=== PATIENT | female | born 1950 | race Caucasian/White ===

== ENCOUNTER → 2020-02-27 | Outpatient (CLI) | payer BC ==
--- NOTE | 2020-02-27 11:25 | US ---
EXAMINATION TYPE: US duplex aorta DATE OF EXAM: 02/27/2020 COMPARISON: NONE CLINICAL HISTORY: Z13.6 Screen for cardiovascular disorders. EXAM MEASUREMENTS: Abdominal Aorta: Proximal: 2.3 x 2.4 x 2.1 cm Mid: 2.3 x 2.2 x 2.3 cm Distal: 2.0 x 2.4 x 2.1 cm Bifurcation: Rt: 1.4 x 1.2 x 1.5 cm Lt: 1.3 x 1.1 x 1.6 cm Grayscale, color Doppler and spectral Doppler imaging performed. Atherosclerotic changes. Iliac arteries appear ectatic. IMPRESSION: No abdominal aortic aneurysm
== END | disposition home or self-care (01) ==
LOC: RADUSWWP 07:14
PROVIDERS: ATTEND Family Medicine
DX: Z13.6 Encounter for screening for cardiovascular disorders (principal)
CPT/HCPCS: 93979

== ENCOUNTER → 2020-03-24 | Day surgery (SDC) | payer MEDICARE ==
[~2020-03-24] MED LIST: PREMYELOGRAM MEDICATION REVIEW 1 EACH MISC PO ONE; diazePAM 5 MG TAB PO STA
[2020-03-24 09:12] VITALS: RESP 16; TEMP 98.1
--- NOTE | 2020-03-24 09:22 | XR ---
EXAMINATION TYPE: XR scoliosis survey DATE OF EXAM: 03/24/2020 COMPARISON: NONE HISTORY: Back pain. TECHNIQUE: 2 weightbearing views of the thoracolumbar spine. FINDINGS: S-shaped scoliotic curvature scoliosis is present. There is dextroconvex curvature centered mid thoracic spine with reactive levoconvex curvature centered near the thoracolumbar junction and s ubsequent most prominent dextroconvex curvature or scoliosis centered at L3 level. Alignment is strai ghtened on the lateral images. No hemivertebra. Calculated soares angle is 25 degrees using the superio r L2 and superior L4 endplates. Transitional type L6 vertebra is suspected. Numerous surgical clips o verlie the thoracic inlet. IMPRESSION: As above.
--- NOTE | 2020-03-24 11:52 | FL ---
PROCEDURE: Fluoroscopic Lumbar myelogram DATE: 03/24/2020 CLINICAL HISTORY: 69-year-old female M5 4.5, low back pain COMPLICATIONS: None COMPARISON: Correlation to patient's outside MRI performed on 09/19/2019. Fluoroscopy time: 1 minute 18 seconds Total images: 8 SEDATION: Valium was administered by nursing personnel. The patient and the patient's vital signs were monitor ed by qualified independent radiology personnel. TECHNIQUE: The procedure and potential risks were explained to patient and an informed consent was obtained with teach back. Site and side was verified. A time out was performed. The patient was placed prone on the fluoroscopy table and the L4-L5 level was localized and the skin was marked and was prepped and draped in the usual sterile fashion. Lidocaine was used for local anesthesia. Utilizing fluoroscopic guidance a 22-gauge spinal needle was placed through the skin and into the subarachnoid space. After visualization of clear CSF, 10 mL Isovue-M 300 was administered into the thecal sac. The table was manipulated to promote contrast do extend up into the thoracic spine. The patient tolerated the procedure well and will be sent to CT in 30 minutes. The estimated blood loss was minimal. The patient's condition was unchanged following the procedure. IMPRESSION: Successful lumbar myelogram injection for CT.
--- NOTE | 2020-03-24 12:53 | CT ---
EXAMINATION TYPE: CT thoracic and lumbar myelogram DATE OF EXAM: 03/24/2020 COMPARISON: Lumbar MRI 09/19/2019 HISTORY: 69-year-old female M54.5, Low back pain TECHNIQUE: Contiguous axial scanning of the thoracic and lumbar spine after intrathecal administratio n of contrast material. Please refer to myelogram injection report of the same day for further detail s. Coronal and sagittal reconstructions performed. CT DLP: 110.4 mGycm Automated exposure control for dose reduction was used. FINDINGS: THORACIC SPINE: Dextroconvex curvature of the thoracic spine. There is moderate degenerative disc disease lower thoracic spine with disc space narrowing, some vacu um phenomenon, and diffuse disc bulging. Facet arthropathy mid and lower thoracic spine. There is degenerative grade 1 retrolisthesis from T7 through T11 levels. Prominent posterior disc bul ges at these levels. Additional degenerative grade 1 anterolisthesis at C7-T1. Overall mild narrowing of the spinal canal at T9-T10 and T10-T11. No high-grade canal compromise or f rank cord compression within the thoracic spine. On the right, there are variable mild neural foraminal stenoses secondary to facet arthropathy. More moderate to severe at T10-T11 and moderate at T5-T6. On the left, variable mild neural foraminal stenoses, more moderate to severe at T10-T11 and T9-T10. Moderate at T8-T9 and T1-T2. Vertebral body heights are preserved. LUMBAR SPINE: Undulating curvature of the lumbar spine with a dextroconvex component centered at the mid lumbar spi ne. There is 8 mm of right lateral subluxation of L3 on L4 and 1 cm of right lateral subluxation of L 4 on L5. Degenerated scoliosis with moderate to advanced multilevel degenerative disc disease. There is a comp onent of underlying congenital spinal canal stenosis of the upper to mid lumbar spine with AP canal d imension of 1.2 cm. Hypertrophic facet arthropathy present at multiple levels. Degenerative grade 1 anterolisthesis L4-L5. Multilevel prominent disc herniations are present. At T12-L1, disc herniation with ligamentum flavum thickening results in moderate narrowing of the spi nal canal. Near abutment of both the dorsal and ventral portions of the distal cord. At L1-L2, posterior disc bulge with ligamentum flavum thickening. Changes result in mild to moderate narrowing of the spinal canal. At L2-L3, diffuse disc bulge with ligamentum flavum thickening. Left paracentral disc protrusion. Mod erate spinal canal stenosis. Left lateral recess stenosis. At L3-L4, disc osteophyte complex. Moderate to severe spinal canal stenosis with very little intrathe wilder contrast at this level. At L4-L5, bulging disc is present with circumferential attenuation of the thecal sac but no significa nt spinal canal stenosis. At L5-S1, mild disc bulge without significant canal or foraminal stenosis. On the right, there is mild multilevel neural foraminal stenosis, moderate at T12-L1, L1-L2, and L5-S 1. An additional, large right lateral disc osteophyte complex may impinge the extraforaminal right L5 nerve root. On the left, mild multilevel neuroforaminal narrowing, more moderate at L2-L3, moderate to severe at L3-L4. Vertebral body heights are preserved. Conus medullaris is normally located at the L1-L2 level. INCIDENTAL: 2.2 cm low-density nodule left adrenal gland with attenuation of 9 Hounsfield units suggesting a lipi d rich adrenal adenoma. 4 mm subpleural pulmonary nodule posteromedial left base, axial image 87 can be reassessed in 12 sabine hs. Some surgical clips in the thyroid bed. IMPRESSION: THORACIC SPINE: 1. DEXTROCONVEX SCOLIOSIS OF THE THORACIC SPINE. MODERATE DEGENERATIVE DISC DISEASE MID AND LOWER THO RACIC SPINE AND SCATTERED FACET ARTHROPATHY. 2. DEGENERATIVE GRADE 1 RETROLISTHESES FROM T7 THROUGH T11 LEVELS. MILD OVERALL SPINAL CANAL STENOSES AT T9-T10 AND T10-T11. NO HIGH-GRADE CANAL COMPROMISE OR MAT CORD COMPRESSION. 3. VARIABLE MILD NEUROFORAMINAL STENOSES OUTLINED ABOVE, MORE MODERATE TO SEVERE ON BOTH SIDES AT T10-T11 AND ON THE LEFT AT T9-T10. LUMBAR SPINE: 4. DEGENERATED DEXTROCONVEX SCOLIOSIS. 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 5. MODERATE SPINAL CANAL STENOSES AT T12-L1 AND L2-L3. MILD TO MODERATE AT L1-L2 AND MODERATE TO SREE RE AT L3-L4. THERE IS SECONDARY REDUNDANCY OF THE CAUDA EQUINA NERVE ROOTS DUE TO THE MULTILEVEL NARR OWING. 6. ADDITIONAL LEFT LATERAL RECESS STENOSIS AT L2-L3. ALSO, THERE IS A LARGE RIGHT LATERAL DISC OSTEOP HYTE COMPLEX AT L5-S1 THAT MAY IMPINGE THE EXTRAFORAMINAL RIGHT L5 NERVE ROOT. 7. VARIABLE MILD TO MODERATE NEURAL FORAMINAL STENOSES OUTLINED ABOVE, MORE MODERATE TO SEVERE ON THE LEFT AT L3-L4. INCIDENTAL: 8. 4 MM LEFT BASILAR PULMONARY NODULE. 6 MONTH FOLLOW-UP CT CHEST TO REASSESS AND SERVING THE REMAIND ER OF THE LUNGS. 9. INCIDENTAL 2.2 CM LIPID RICH LEFT ADRENAL ADENOMA.
[2020-03-24 13:59] VITALS: BP 135/74; PULSE 93
== END ==
LOC: RADPROMAIN 07:45
PROVIDERS: ATTEND Orthopaedic Surgery
DX: M51.36 Other intervertebral disc degeneration, lumbar region (principal); M51.34 Other intervertebral disc degeneration, thoracic region; M48.061 Spinal stenosis, lumbar region without neurogenic claudication; M48.04 Spinal stenosis, thoracic region; M41.9 Scoliosis, unspecified; M25.78 Osteophyte, vertebrae
CPT/HCPCS: 62305; 72082; 72129; 72132; Q9967

== ENCOUNTER → 2020-04-14 | Outpatient (CLI) | payer MEDICARE ==
--- NOTE | 2020-04-14 11:44 | BD ---
EXAMINATION TYPE: Axial Bone Density DATE OF EXAM: 04/14/2020 COMPARISON: NONE CLINICAL HISTORY: 69-year-old female postmenopausal screening Height: 5 FT 6 IN Weight: 187 FRAX RISK QUESTIONS: Alcohol (3 or more units per day): NO Family History (Parent hip fracture): YES Glucocorticoids (More than 3mos): NO (Ex: prednisone, prednisolone, methylprednisolone, dexamethasone, and hydrocortisone). History of Fracture in Adulthood: NO Secondary Osteoporosis: 1. Type 1 Diabetes: NO 2. Hyperthyroidism: REMOVED FOR NODULES 3. Menopause before 45: NO 4. Malnutrition: NO 5. Chronic liver disease: NO Rheumatoid Arthritis: NO Current Tobacco Use: NO RISK FACTORS HISTORY OF: Surgery to Spine/Hip(right/left)/Wrist (right/left): ALKA HIP REPLACEMENTS When: APPROX 10 YEARS LEFT , APPROX 4 YEARS FOR RIGHT Family History of Osteoporosis: NO Active: NO Diet low in dairy products/other sources of calcium: NO Postmenopausal woman: PART HYST IN 30'S SYMPTOMS 54-55 Take estrogen and/or progesterone medications: NONE Lost more than 2 inches in height since high school: MEDICATIONS: Thyroid Medications: YES Which medication: SYNTHROID How Long: APPROX 10-20 YEARS Additional Medications: SYNTHROID, CYMBALTA, MUSCLE RELAXER, MEDS FOR CYSTITIS Additional History: EXAM MEASUREMENTS: Bone mineral densitometry was performed using the [employer] System. Bone mineral density as measured about the Lumbar spine is: ----- L1-L4(G/cm2): 1.687 T Score Values are as follows: ----- L2: 2.5 ----- L3: 5.1 ----- L4: 5.7 ----- L1-L4: 4.2 PREV DONE ELSEWHERE Bone mineral density about the L Wrist (g/cm2): 0.731 T Score values are as follows: -----Dist. R+U: -0.3 -----Prox. R+U: 1.0 -----Radius total: 2.5 PREV DONE ELSEWHERE IMPRESSION: Normal (Values between +1 and -1 indicate normal bone mass). Consider repeating this study in 5 year s or sooner if there is some new clinical indication. NOTE: T-SCORE=SD OF THE YOUNG ADULT MEAN.
== END | disposition home or self-care (01) ==
LOC: RADBDWWP 09:10
PROVIDERS: ATTEND Orthopaedic Surgery
DX: M85.88 Other specified disorders of bone density and structure, other site (principal); N95.1 Menopausal and female climacteric states
CPT/HCPCS: 77080

== ENCOUNTER 2020-08-29 08:37 | Day surgery (SDC) | payer MEDICARE ==
[2020-08-27 16:12] VITALS: BMI 28.1
[2020-08-29] MEDS ORDERED: LACTATED RINGERS 1,000 ML IV ONE (09:01)
[2020-08-29 09:02] VITALS: TEMP 97.2
[2020-08-29] MEDS ORDERED: fentaNYL (PF) 50 MCG/ML 2 ML AMP ONE (10:01)
[2020-08-29] MEDS ORDERED: MIDAZOLAM 2 MG/2 ML VIAL ONE (10:01)
[2020-08-29] MEDS ORDERED: IOPAMIDOL M200 10 ML VIAL ONE (10:01)
[2020-08-29] MEDS ORDERED: TRIAMCINOLONE ACETONIDE 40 MG/ML 1 ML VIAL ONE (10:01)
[2020-08-29] MEDS ORDERED: ROPIVACAINE 5MG/ML 20ML VIAL ONE (10:01)
--- NOTE | 2020-08-29 10:19 | P.PCN ---
Date of Procedure: 08/29/20 Description of Procedure: PREOPERATIVE DIAGNOSIS : Lumbar spondylosis with Facet Arthropathy without myelopathy POSTOPERATIVE DIAGNOSIS: same PROCEDURE: first Diagnostic lumbar medial branch block with fluoroscopy at L3, L4, L5 [bilateral] which covers facets L4-5 and L5-S1 ANESTHESIA: Local anesthetic; moderate IV sedation with anesthesia team Fluoroscopy was used for the procedure and images were saved in the radiology portion of the chart. Surgeon: Domenico Bautista MD PROCEDURE INDICATION: Lumbar back pain without radiculopathy, not responsive to conservative management. PROCEDURE DESCRIPTION: the patient was seen and identified in the preop holding area , risks and benefits and possible complications of the procedure and alternatives were discussed with the patient, and the patient agreed to proceed with the procedure and signed the consent . IV was started , vital signs were monitored during the procedure and fluoroscopy was used to maximize the benefit and accuracy of the needle placement, and sedation was given to decrease patient anxiety. Patient was taken to the procedure room and placed in prone position. The lumbar region was prepped using chlorhexidineX-2. Under strict sterile technique using AP fluoroscopy the bilateral sacral ala were identified and using ipsilateral oblique fluoroscopy ,the junction of the transverse process and the superior articulating process of the L4, L5 vertebra which corresponds to the fluoroscopy image of the eye of the Tai dog for the medial branches were identified. Subsequently, after local infiltration of skin with lidocaine 1% 0.2 mL at each level , a 25-gauge 3.5" Quincke-type needle was placed at the junction of the base of the transverse process and the superior articular process at the appropriate level as well as the sacral ala, and the needle was advanced until the periosteum contacted, needle placement confirmed with AP and oblique fluoroscopy, 0.2 mL of Isovue 200 per level was injected which revealed no vascular uptake and after negative aspiration. I robert up 5 mL of 0.5% ropivacaine and 1 mL of 40 mg/mL kenalog and injected 1 mL of this injectate at each level and the needle subsequently removed . A total of [2 levels injected bilaterally] At the end of the procedure and the needles were removed and a bandage applied after the skin was cleaned. The patient was taken to recovery room in stable condition and monitors in the recovery room for 20-30 minutes and discharged home in stable condition after discharge criteria met and patient will follow up in clinic in 2 weeks EBL: Minimal COMPLICATION: None.
[2020-08-29] MEDS ORDERED: IV FLUID CONTINUATION 500 ML IV ONE (10:24)
[2020-08-29 10:26] VITALS: RESP 16
--- NOTE | 2020-08-29 10:30 | FL ---
EXAMINATION TYPE: FL guided pain mgmt statistic DATE OF EXAM: 08/29/2020 CLINICAL HISTORY: Low back pain. TECHNIQUE: Fluoroscopy. COMPARISON: None. FINDINGS: Fluoroscopic guidance was provided during pain relief procedure performed by Dr. Bautista . A total of 5 seconds of fluoroscopic time was utilized during the procedure and 3 spot images are ac quired. Images acquired shows needle localization at level of lumbar spine. IMPRESSION: As Above.
[2020-08-29 10:55] VITALS: BP 126/80; PULSE 87
== END 2020-08-29 11:03 | disposition home or self-care (01) ==
LOC: ORPAIN 08:37
PROVIDERS: ATTEND Anesthesiology
DX: M47.816 Spondylosis without myelopathy or radiculopathy, lumbar region (principal); E78.5 Hyperlipidemia, unspecified; E07.9 Disorder of thyroid, unspecified; M19.90 Unspecified osteoarthritis, unspecified site; K21.9 Gastro-esophageal reflux disease without esophagitis; Z79.899 Other long term (current) drug therapy
CPT/HCPCS: 64493; 64494; J2250; J3301; J3010; Q9966; J2795

== ENCOUNTER → 2020-10-20 | Outpatient (CLI) | payer MEDICARE ==
--- NOTE | 2020-10-20 08:23 | P.PN ---
Subjective Progress Note Date: 10/20/20 This is a 69-year-old lady with history of chronic low back pain with occas ional radiation to the lower back however most of her pain is located in the lower back. The patient had lumbar medial branch block for the levels L4 5 and L5-S1 bilaterally which gave her mother 50% of pain relief that she states. The patient takes [id number] medications for her pain. Patient denies new-onset weakness, bowel/bladder incontinence, or any other signs or symptoms of cauda equina syndrome. There are no signs of acute intoxication, and no indications of medication diversion or overuse. In addition to above, 13-point review of systems is also negative for chest pain, shortness of breath, changes in vision, changes in hearing, new onset weakness, abdominal pain, diarrhea, extreme fatigue, malaise, fever, skin changes, homicidal or suicidal ideation, or bowel or bladder incontinence. Vital Signs: Reviewed in EMR Gen: AAOx3, NAD HEENT: PERRLA,hearing grossly normal Pulm: resp unlabored Neck: supple, trachea midline Neuro exam of the lower extremities: Normal muscle strength bilaterally Straight leg raising test: Negative bilaterally Cj's test: Range of motion of the lumbar spine: Facet loading test: Positive on the lumbar area bilaterally Tenderness in the paravertebral musculature: The lumbar area bilaterally no bilaterally Neuro: CN II-XII grossly intact, Imaging: Reviewed in EMR/chart Assessment: The spondylosis without myelopathy Lumbar DDD Plan: 1. Explanation: Opioid and psychological risk scores were reviewed. Diagnoses, prognoses, and multiple treatment options including but not limited to physical therapy, interventional therapies, adjuvant medical therapies, narcotic medication therapies, and surgery were discussed with the patient and all questions were answered to the patient's satisfaction. 2. Opioid agreement: Signed with the patient and the patient is warned not to use opioids while driving or before driving and not to combine opioids with benzodiazepines or alcohol. 3. Counseling: The patient was counseled extensively on SMOKING CESSATION, BODY MASS INDEX, EXERCISE. Specifically, the patient was instructed regarding the importance of smoking cessation, obesity, and exercise in the context of both chronic pain and overall health. 4. Procedures: Visual for the second diagnostic lumbar medial branch block bilaterally for the levels L4 5 and L5-S1 5. Consultations: None 6. Investigations: None 7. Medications: None prescribed 8. Disposition: Return to clinic in 4 weeks after the above-mentioned procedure as soon as possible 9. Maps were reviewed and were appropriate.
[2020-10-20 08:25] VITALS: BP 120/70; PULSE 115; RESP 18; TEMP 98.6
== END ==
LOC: PNWHC3 07:38
PROVIDERS: ATTEND Anesthesiology
DX: M51.36 Other intervertebral disc degeneration, lumbar region (principal); M47.9 Spondylosis, unspecified
CPT/HCPCS: 99211

== ENCOUNTER → 2020-11-12 | Outpatient (CLI) | payer MEDICARE ==
--- NOTE | 2020-11-12 20:45 | CT ---
EXAMINATION TYPE: CT ChestAbdPelvis wo con DATE OF EXAM: 11/12/2020 COMPARISON: CT thoracic and lumbar spine 03/24/2020 HISTORY: abnormal lung findings CT DLP: 1317 mGycm. Automated Exposure Control for Dose Reduction was Utilized. TECHNIQUE: CT scan of the thorax, abdomen and pelvis is performed without IV contrast. FINDINGS: LUNGS: There are a few 5 mm nodules bilaterally. The largest is at the left base (series 4 image [id number] 5) there is a 5 mm groundglass nodule in the right lower lobe (series 4 image 31). No consolidation, effusion or pneumothorax. Degree of mosaic attenuation in the lungs the right medial base. The visualized airways are patent. MEDIASTINUM: There are no greater than 1 cm hilar or mediastinal lymph nodes. No pericardial effusi on is seen. The heart is not enlarged. OTHER: Moderate coronary artery calcification. There is a 2.5 cm fluid density structure in the anter ior chest wall likely cyst. LIVER/GB: A few subcentimeter hypodensity of the liver are indeterminate but likely represent cysts. No biliary ductal dilatation. The gallbladder is unremarkable. PANCREAS: No significant abnormality is seen. SPLEEN: Nonenlarged splenic granulomas. ADRENALS: Left adrenal adenoma. KIDNEYS: No significant abnormality is seen. BOWEL: No significant abnormality is seen. GENITAL ORGANS: No gross abnormality seen. Assessment of the pelvic organs is limited by streak artif act from hip arthroplasties. LYMPH NODES: No greater than 1cm abdominal or pelvic lymph nodes are appreciated. OSSEOUS STRUCTURES: Bilateral hip arthroplasties. Mild levoconvex scoliosis and moderate degenerative changes of the lumbar spine. OTHER: Fat-containing anterior abdominal wall hernia.. IMPRESSION: There are a few 5 mm nodules bilaterally. If the patient is at high risk for lung cancer follow-up imaging is recommended in 12 months. If the patient is not at high risk for lung cancer no follow-up imaging is needed.
== END | disposition home or self-care (01) ==
LOC: RADCTMAIN 15:21
PROVIDERS: ATTEND Family Medicine
DX: R91.8 Other nonspecific abnormal finding of lung field (principal)
CPT/HCPCS: 71250; 74176

== ENCOUNTER → 2020-11-14 | Day surgery (SDC) | payer MEDICARE ==
[2020-11-11 18:16] VITALS: BMI 29.0
[~2020-11-14] MED LIST changes: +IV FLUID CONTINUATION 600 ML IV ONE; +LACTATED RINGERS 1,000 ML IV ONE; +MIDAZOLAM 2 MG/2 ML VIAL ONE; -PREMYELOGRAM MEDICATION REVIEW 1 EACH MISC PO ONE; +ROPIVACAINE 5MG/ML 20ML VIAL ONE; -diazePAM 5 MG TAB PO STA; +fentaNYL (PF) 50 MCG/ML 2 ML AMP ONE; +methylPREDNISolone ACETATE 40 MG/ML 1 ML VIAL ONE
[2020-11-14] MEDS: LACTATED RINGERS 1,000 ML IV SCH ×2 (10:18→10:30)
[2020-11-14 10:24] VITALS: TEMP 97.6
--- NOTE | 2020-11-14 10:53 | P.PCN ---
Date of Procedure: 11/14/20 Procedure(s) Performed: PREOPERATIVE DIAGNOSIS : 1- Lumbar spondylosis with Facet Arthropathy without myelopathy . 2- Lumber degenerative disc disease POSTOPERATIVE DIAGNOSIS: 1- Lumbar spondylosis with Facet Arthropathy without myelopathy . 2- Lumber degenerative disc disease PROCEDURE: Diagnostic bilateral L3 , L4 , and L5 medial branch block under fluoroscopy guidance(fluoroscopy images available in the radiology Department ) ( To target the facet joint between bilateral L4-5 , and L5-S1 ) ANESTHESIA: Monitored anesthesia care as per anesthesia department.. EBL: Minimal COMPLICATION: None PROCEDURE INDICATION: Chronic low back pain secondary to Facet arthropathy unresponsive to conservative treatment. PROCEDURE DESCRIPTION: the patient was seen and identified in the preop holding area , risks and benefits and possible complications of the procedure and alternative were discussed with the patient, and the patient agreed to proceed with the procedure and signed the consent and vital signs monitored during the procedure and fluoroscopy was used to maximize the benefit and accuracy of the needle placement, and sedation was given to decrease patient anxiety, patient was taken to the procedure room and placed in prone position vital signs monitored in the back prepped with chlorhexidine X3 then under strict sterile technique using a right oblique fluoroscopy ,the junction of the transverse process and the superior articulating process of the right L3 , L4 , and L5 vertebra which corresponding to the fluoroscopy image of the eye of the Tai dog on the block side for the medial branches and subsequently , after local infiltration of skin and subcu tissuies with Ropivacaine 0.5 % , one mL at each level ,then 22-gauge Quincke-type needles , 3 needle was used , each one of them placed at the junction of the base of the transverse process and the superior articular process at the appropriate level, and the needle was advanced until the periosteum contacted, needle placement confirmed with AP oblique and lateral view and after appropriate needle placement confirmed, and after negative aspiration for heme and CSF and there was no paresthesia 1-1/2 mL of Ropivacaine 0.5% mixed with 20 mg Depo-Medrol , then half mL injected at each level after negative aspiration the needle subsequently removed and the same procedure repeated for the left side at left side at L3 , L4 and L5 levels. At the end of the procedure and the needles removed and a bandage applied after the skin was cleaned the cleaning solution patient taken to recovery room in stable condition and monitors in the recovery room for 20-30 minutes and discharged home in stable condition after discharge criteria met and patient will follow up with the pain clinic in 2-4 weeks
[2020-11-14 10:58] VITALS: RESP 17
[2020-11-14 11:12] VITALS: BP 117/72; PULSE 88
--- NOTE | 2020-11-14 11:23 | FL ---
EXAMINATION TYPE: FL guided pain mgmt statistic DATE OF EXAM: 11/14/2020 CLINICAL HISTORY: Low back pain. TECHNIQUE: Fluoroscopy. COMPARISON: None. FINDINGS: Fluoroscopic guidance was provided during pain relief procedure performed by Dr. Jacome . A total of 7 seconds of fluoroscopic time was utilized during the procedure and 4 spot images are acquired. Images acquired shows needle localization at several levels in the lumbar spine. IMPRESSION: As Above.
== END ==
LOC: ORPAIN 09:30
PROVIDERS: ATTEND Specialist
DX: M47.816 Spondylosis without myelopathy or radiculopathy, lumbar region (principal); M51.36 Other intervertebral disc degeneration, lumbar region; G89.29 Other chronic pain; E07.9 Disorder of thyroid, unspecified; E78.5 Hyperlipidemia, unspecified; K21.9 Gastro-esophageal reflux disease without esophagitis
CPT/HCPCS: 64493; 64494; J2250; J1030; J3010; J2795

== ENCOUNTER → 2020-12-10 | Outpatient (CLI) | payer MEDICARE ==
--- NOTE | 2020-12-10 09:22 | P.PN ---
Subjective Progress Note Date: 12/10/20 This is a 69-year-old lady with history of axial lower back pain which resp onded favorably to the diagnostic lumbar medial branch block by at least 50% of pain relief after the first one in at least 75% of pain relief after the second one. The patient takes [id number] medications for her pain usually. Her pain is more intense on the right side of the spine on the left side. Patient denies new-onset weakness, bowel/bladder incontinence, or any other signs or symptoms of cauda equina syndrome. There are no signs of acute intoxication, and no indications of medication diversion or overuse. In addition to above, 13-point review of systems is also negative for chest pain, shortness of breath, changes in vision, changes in hearing, new onset weakness, abdominal pain, diarrhea, extreme fatigue, malaise, fever, skin changes, homicidal or suicidal ideation, or bowel or bladder incontinence. Vital Signs: Reviewed in EMR Gen: AAOx3, NAD HEENT: PERRLA,hearing grossly normal Pulm: resp unlabored Neck: supple, trachea midline Neuro exam of the lower extremities: Normal muscle strength bilaterally Straight leg raising test: Cj's test: Range of motion of the lumbar spine: Facet loading test: Positive on the lumbar area bilaterally Tenderness in the paravertebral musculature: Positive on the lumbar area bilaterally Neuro: CN II-XII grossly intact, Imaging: Reviewed in EMR/chart Assessment: Lumbar spondylosis without myelopathy About DDD Plan: 1. Explanation: When patients on opioids, opioid and psychological risk scores were reviewed. Diagnoses, prognoses, and multiple treatment options including but not limited to physical therapy, interventional therapies, adjuvant medical therapies, narcotic medication therapies, and surgery were discussed with the patient and all questions were answered to the patient's satisfaction. 2. Opioid agreement:When patients are prescribed opoids through our clinic, opioid agreement is signed with the patient and the patient is warned not to use opioids while driving or before driving and not to combine opioids with benzodiazepines or alcohol. 3. Counseling: When patient is smoking or obese, the patient was counseled extensively on SMOKING CESSATION, BODY MASS INDEX, EXERCISE. Specifically, the patient was instructed regarding the importance of smoking cessation, obesity, and exercise in the context of both chronic pain and overall health. 4. Procedures: Schedule for right lumbar medial branch RFA for levels L3 4, L4- L5, and L5-S1. We will plan on doing the left side a few weeks after. 5. Consultations: None 6. Investigations: None 7. Medications: None prescribed 8. Disposition: Proceed with the above-mentioned procedure as soon as possible 9. Maps were reviewed and were appropriate. PQRS measures: 1-Patient's medications are documented in the chart. 2-Tobacco use is negative, counseling given 3-Patient has had a pneumococcal vaccine. 4-Advanced care planning discussed, patient unable to give 5-Opioid contract signed with the patient. 6-Pain positive, follow-up visit or procedure scheduled 7-Patient's blood pressure measured and documented normal limits. The patient will follow up with his primary care physician. 8-Patient's weight was measured, and body mass index ABOVE the normal limits, and counseling was done. Patient instructed to follow up with PCP. 9-Patient WAS NOT identified as an unhealthy alcohol user.
[2020-12-10 09:35] VITALS: BP 118/71; PULSE 58; RESP 18; TEMP 97.8
== END ==
LOC: PNWHC3 08:59
PROVIDERS: ATTEND Anesthesiology
DX: M47.816 Spondylosis without myelopathy or radiculopathy, lumbar region (principal); M51.36 Other intervertebral disc degeneration, lumbar region
CPT/HCPCS: 99211

== ENCOUNTER 2021-03-31 08:13 | Day surgery (SDC) | payer MEDICARE ==
[2021-03-27 09:16] VITALS: BMI 28.1
[2021-03-31] MEDS ORDERED: fentaNYL (PF) 50 MCG/ML 2 ML AMP ONE (08:54)
[2021-03-31] MEDS ORDERED: MIDAZOLAM 2 MG/2 ML VIAL ONE (08:54)
[2021-03-31] MEDS ORDERED: ROPIVACAINE 5MG/ML 20ML VIAL ONE (08:54)
[2021-03-31] MEDS ORDERED: TRIAMCINOLONE ACETONIDE 40 MG/ML 1 ML VIAL ONE (08:54)
[2021-03-31 08:57] VITALS: TEMP 97.5
[2021-03-31] MEDS ORDERED: LACTATED RINGERS 1,000 ML IV SCH ×2 (09:00)
--- NOTE | 2021-03-31 09:21 | P.PCN ---
Date of Procedure: 03/31/21 Description of Procedure: Pre- and Post-operative Diagnosis: Lumbar facet arthropathy, and lumbar spondylosis without myelopathy. Procedure: Right side L3-L4, L4-5 radiofrequency thermocoagulation of medial branch under fluoroscopic guidance right side L5-S1 dorsal ramus radiofrequency thermocoagulation under fluoroscopic guidance Surgeon: Barbara Turcios Anesthesia: Local: 1% Lidocaine, IV sedation : Midazolam 2 mg, and fentanyl 100 micrograms. Complications: None Estimated blood loss: None. Specimen removed: None Fluoroscopic image: Saved to patient electronic medical records. Indications for Procedure: The patient is well known to pain clinic for his chronic low back pain management. The lumbar facet loading test was positive with a clinical diagnosis of lumbar facet arthropathy. Patient had marked decrease in pain after the diagnostic medial branch procedure. Came here for radiofrequency ablation for longer pain relief. PROCEDURE DESCRIPTION: The patient was seen and identified in the preoperative area. Risks, benefits, complications, and alternatives were discussed with the patient. The patient agreed to proceed with the procedure and signed the consent. IV was started. Vital signs were stable. Patient was taken to the procedure room and timeout was completed. The patient was placed in the prone position on procedure table and a pillow was placed under the abdomen to reduce lumbar lordosis. The lumbosacral area was prepped and draped in the usual sterile fashion. Critical pause was taken. Vital signs were closely monitored during the procedure. The fluoroscopic camera was placed in the anteroposterior position to identify the junction of superior articular process and its corresponding injection with its transverse process of L3, L4, L5, and S1, which were anesthetized with 1% lidocaine. We used 18-gauge 100-mm curved, sharp radiofrequency cannula with 10- mm active tip for the procedure. The first cannula was guided by fluoroscopy to the S1 superior articular process and its corresponding junction with its ala. The second cannula was guided by fluoroscopy into the L5 superior articular process and its corresponding junction with its transverse process and pedicle. The third cannula was guided by fluoroscopy into the L4 SAP and its corresponding junction with its transverse process and its pedicle. The fourth cannula was guided by fluoroscopy into the L3 SAP and its corresponding junction with its transverse process and its pedicle. After confirmation of needle tip position on oblique view, each site underwent motor testing at 2 Hz and 0 to 2.5 volts, and there was good motor stimulation in the back and no radicular symptoms or paresthesias. After confirmation of motor testing, each site was infiltrated with 0.5 mL at each level of block solution. Block solution contained 4 mL of 0.5% ropivacaine preservative free mixed with 40 MG of Kenalog. At this time, each site was ablated using continuous radiofrequency mode at 80 degrees Celsius for 90 seconds at each level. At the end of the procedure, each needle was retracted approximately 1 cm and the skin was infiltrated with 0.5% ropivacaine preservative free 1 ml at each site. Skin was cleansed and bandages were applied. Disposition : The patient tolerated the procedure very well. The patient was transferred to the recovery room and remained stable until discharged home. The patient was given detailed discharge instructions for infection, bleeding, and increased pain at the injection site, and was advised to seek immediate medical attention should significant side effects develop. The patient will be scheduled with Pain Clinic within 4 weeks.
[2021-03-31] MEDS ORDERED: IV FLUID CONTINUATION 600 ML IV ONE (09:25)
[2021-03-31 09:50] VITALS: BP 113/72; PULSE 84; RESP 20
--- NOTE | 2021-03-31 10:58 | FL ---
Fluoroscopy HISTORY: Pain 10 seconds fluoroscopy time supplied to the referring clinician. 4 intraoperative C-arm images docum ent the procedure. See dictated report from anesthesia.
== END 2021-03-31 09:55 | disposition home or self-care (01) ==
LOC: ORPAIN 08:13
DX: M47.816 Spondylosis without myelopathy or radiculopathy, lumbar region (principal); G89.29 Other chronic pain; E03.9 Hypothyroidism, unspecified; F41.9 Anxiety disorder, unspecified; Z90.710 Acquired absence of both cervix and uterus; Z79.890 Hormone replacement therapy; Z79.899 Other long term (current) drug therapy
CPT/HCPCS: 64635; 64636 ×2; J2250; J3301; J3010; J2795; 99152; 99153

== ENCOUNTER → 2021-04-27 | Outpatient (CLI) | payer MEDICARE ==
--- NOTE | 2021-04-27 09:54 | P.PN ---
Subjective Progress Note Date: 04/27/21 Principal diagnosis: A 70 yr old female with a history of severe and chronic low back pain secondary to lumbar degenerative disc diseases and lumbar spondylosis with facet arthropathy presents today for an evaluation of R RFA of L3-0L4, L4-L5, L5-S1 and possible L RFA. Pt experienced 80% pain relief with the RFA. Pain level is currently at 7 out of 10 in the lower lumbar spine. Pain is dull/ achy/ sharp/ shooting/ sore over the lumbar spine and shoots towards the left lower extremity. Pain is provoked by walking and sitting bending twisting and lifting. Pain is alleviated with medications like Tylenol and Motrin, topical Biofreeze gel, injections, ice, physical therapy 1 year ago, rest and a home exercise regimen. Interventional pain procedures completed include Facet medial branch blocks of bilateral L3-L4, L4-L5, L5-S1 and R RFA of L3-L4, L4-L5, L5-S1 Patient is currently on Tylenol & Motrin Patient denies any side effects of the medication(s), denies excessive drowsiness or sleepiness, denies suicidal ideation and reports that the current pain medication is helping to control the pain and improve activities of daily living. Patient denies any motor or sensory deficits. Patient denies any fever or night sweats, denies any change in the bowel movements or urination. Physical Examination: -Constitutional: Cooperative. Not in acute distress . -HEENT: Neck is supple. No lymphadenopathy. No thyromegaly. Normal thyroid size. Eyes: No ptosis , no icterus, no photophobia. ENT: No auditory deficits. Normal oropharynx. No Thrush. - Respiratory: Chest clear to auscultations bilaterally. No wheezing. No rhonchi. - Cardiovascular: Regular rate and rhythm. S1 / S2 , no S3 , no S4. - Gastrointestinal: Abdomen soft no tenderness. Bowel sounds positive in all four quadrants. No organomegaly. - Genitourinary: Deferred. - Neurologic: Cranial nerve II to XII intact. No focal neurological deficits. - Psychatric: Alert & oriented x 3. Matching mood & appropriate affect. Judgment and insight intact. - Lymphatic: No Lymphadenopathy. - Musculoskeletal: Cervical spine: Muscle bulk/ tone/ strength in the bilateral upper extremities normal. Facet loading test cervical area positive. Lumbar spine: Motor bulk/ tone/ strength lower extremities , thigh and legs : 5/5 Deep tendon reflexes : Normal Knee Jerk. Normal Ankle Jerk . Lumbar Facet Loading Test positive over the left side Straight Leg Raise: positive at <45 degree right side/ left side Carlita test: positive right side / left side Range of motion: Flexion of the lumbar spine 60 degrees Range of motion: Extension of the lumbar spine <20 degrees Severe tenderness over the Sacroiliac joint: right side / left side Assessment and plan: Chronic low back pain secondary to lumbar degenerative disc disease , lumbar spondylosis with facet arthropathy without myelopathy Recommendation of L RFA of L3-L4 L4-L5 and L5-S1 Discontinue Motrin 3 days prior to procedure Risk benefits of procedure discussed and patient verbalized understanding All patient questions answered MAPS reviewed and it was appropriate. I have spent 31 minutes on patient care today. Dr Jacome was available by phone for the evaluation of this patient. The time was used to review the medical records including relevant urine studies and Prescription history (MAPs), review of the available imaging, evaluation and examination of the patient, coordination of care with the medical staff and if applicable referring physicians, as well as creation of the medical record PQRS Measure Charge Sheet - Pain Location Lower Back Non-Pharmacological Interventions: Home Exercise, Ice Pharmacological Interventions: PRN Medication PQRS Narrative: Pain Intensity [Lower Back] 2 Scale Used Numeric (1 - 10) Hx Alcohol Use (MH) No Home Medications: Ambulatory Orders Atorvastatin [Lipitor] 40 mg PO HS 03/12/20 DULoxetine HCL [Cymbalta] 60 mg PO QAM 03/12/20 Ferrous Sulfate [Slow Fe] 142 mg PO DAILY 03/12/20 Ibuprofen [Motrin] 800 mg PO TID PRN 03/12/20 Lactobacillus Rhamnosus GG [Culturelle] 1 each PO DAILY 03/12/20 Levothyroxine Sodium 100 mcg PO DAILY 03/12/20 Pentosan Polysulfate Sodium [Elmiron] 100 mg PO TID 03/12/20 Ubidecarenone [Co Q-10] 400 mg PO DAILY 03/12/20 DULoxetine HCL [Cymbalta] 30 mg PO HS 07/23/20 Omeprazole [PriLOSEC] 10 mg PO DAILY PRN 07/23/20 Ergocalciferol [Vitamin D2 (1250 Mcg = 57160 Iu)] 1,250 mcg PO MO 11/11/20
[2021-04-27 10:03] VITALS: BP 138/85; PULSE 101; RESP 18; TEMP 98
== END ==
LOC: PNWHC3 09:10
PROVIDERS: ATTEND Physician Assistant Medical
DX: M51.36 Other intervertebral disc degeneration, lumbar region (principal); M47.816 Spondylosis without myelopathy or radiculopathy, lumbar region; G89.29 Other chronic pain
CPT/HCPCS: 99211

== ENCOUNTER 2021-08-07 07:25 | Day surgery (SDC) | payer MEDICARE ==
[2021-08-06 08:15] VITALS: BMI 28.1
[~2021-08-07 07:25] MED LIST changes: -IV FLUID CONTINUATION 600 ML IV ONE; -LACTATED RINGERS 1,000 ML IV ONE; +LACTATED RINGERS 1,000 ML IV SCH; +LIDOCAINE 1% (10MG/ML) FOR IV START INTRADERMA PRN; -MIDAZOLAM 2 MG/2 ML VIAL ONE; -ROPIVACAINE 5MG/ML 20ML VIAL ONE; -fentaNYL (PF) 50 MCG/ML 2 ML AMP ONE; -methylPREDNISolone ACETATE 40 MG/ML 1 ML VIAL ONE
[2021-08-07 07:51] VITALS: TEMP 97.6
[2021-08-07] MEDS ORDERED: fentaNYL (PF) 50 MCG/ML 2 ML AMP ONE (08:24)
[2021-08-07] MEDS ORDERED: methylPREDNISolone ACETATE 40 MG/ML 1 ML VIAL ONE (08:24)
[2021-08-07] MEDS ORDERED: ROPIVACAINE 5MG/ML 20ML VIAL ONE (08:24)
[2021-08-07] MEDS ORDERED: MIDAZOLAM 2 MG/2 ML VIAL ONE (08:24)
--- NOTE | 2021-08-07 08:44 | P.PCN ---
Date of Procedure: 08/07/21 Procedure(s) Performed: PREOPERATIVE DIAGNOSIS: 1-Lumbar Spondylosis with Facet Arthropathy without myelopathy. 2- Lumber degenerative disc disease. POSTOPERATIVE DIAGNOSIS: 1- Lumbar Spondylosis with Facet Arthropathy without myelopathy. 2- Lumber degenerative disc disease. PROCEDURES : Left Radiofrequency thermocoagulation, L3 , L4 , and L5 medial branch, with fluoroscopic guidance (fluoroscopy images available in the radiology department) ( to denervate the facet joint at left L4-5 ,and L5-S1 levels ). ANESTHESIA: Monitored anesthesia care as per anesthesia department . EBL: Minimal PROCEDURE INDICATION: The patient with low back pain secondary to lumbar facet arthropathy who had more than 50% relief of her pain with previous diagnostic lumbar medial branch block with bupivacaine. PROCEDURE DESCRIPTION / TECHNIQUE: The patient was seen and identified in the preoperative area. Risks, benefits, complications, including but not limited to risk of infection ,bleeding , allergic reactions to the medications and no complete pain releife , and alternatives were discussed with the patient, the patient agreed to proceed with the procedure and signed the consent. IV was started. Vital signs remained stable throughout the procedure. Patient was taken to the OR and time out was completed. The patient was placed in the prone position on the procedure table. The lumber area was prepped and draped in the usual sterile fashion. . Vital signs were closely monitored during the procedure .IV sedation was used during the procedure to decrease patients anxiety. Using AP and then oblique fluoroscopy, the ``eye of the Tai dog corresponding to the connection between the superior and transverse articular processes of Left L3, L4, and L5 were identified, marked, and localized with 1% lidocaine. Subsequently, a [id number] radiofrequency cannula with a 10-mm active tip was advanced guided by fluoroscopy to each of the``eyes of the Tai dog at Left L3, L4, and L5. Each site then underwent sensory testing at 50 Hz and 0 to 1 volt and motor testing at 2.5 Hz and 0 to 3 volt with local stimulation, but no radicular symptoms down the legs. Thereafter each sites underwent radiofrequency thermocoagulation at 80 degrees celsius for 90 seconds after injecting 0.5 ml of PF Ropivacaine 1ml, then after the thermocoagulation done , 1 ml of the block solution containing Depo-Medrol 40 mg and 3 ml of Ropivacaine 0.5% was injected at the Left L3 , L4 , and L5 , levels after negative aspiration of CSF and blood and with no paresthesias. Cannulas were retracted while injecting lidocaine 1% until the needle is out. At the end of the procedure, the skin was cleansed and bandages were applied. COMPLICATIONS: No acute complications. DISPOSITION / PLANS: The patient was placed in a supine position and transferred to the recovery area in a stable condition for observation and was discharged from the recovery room after meeting discharge criteria. Home discharge instructions given to the patient by the staff. The patient was reexamined prior to discharge. The patient will schedule a follow up in the clinic in 2-4 weeks.
--- NOTE | 2021-08-07 08:50 | FL ---
EXAMINATION TYPE: FL guided pain mgmt statistic DATE OF EXAM: 08/07/2021 HISTORY: Lumbar Rad Freq 12sec fluoro time...3 images to PACS
[2021-08-07] MEDS ORDERED: IV FLUID CONTINUATION 900 ML IV ONE (09:03)
[2021-08-07 09:05] VITALS: RESP 16
[2021-08-07 09:07] VITALS: BP 131/67; PULSE 86
== END 2021-08-07 09:26 | disposition home or self-care (01) ==
LOC: ORPAIN 07:25
PROVIDERS: ATTEND Specialist
DX: M47.816 Spondylosis without myelopathy or radiculopathy, lumbar region (principal)
CPT/HCPCS: 64635; 64636; J2250; J1030; J3010; J2795

== ENCOUNTER → 2021-08-31 | Outpatient (CLI) | payer MEDICARE ==
[2021-08-31 10:03] VITALS: BP 139/80; PULSE 98; RESP 18; TEMP 98.9
--- NOTE | 2021-08-31 10:38 | P.PN ---
Subjective Progress Note Date: 08/31/21 Principal diagnosis: A 70 yr old female with a history of severe and chronic low back pain secondary to lumbar degenerative disc diseases and lumbar spondylosis with facet arthropathy presents today for evaluation status post BL RFA L3-L5. She states she experienced 80% pain relief status post procedure. Pain level is currently at 8 out of 10 in intensity, localized to the lower aspect of the lumbar spine which feels more like pressure in character, provoked with prolonged walking or sitting for periods of 20 minutes or more as well as lifting and bending. Pain is alleviated with medications, topicals, injections, ice, physical therapy 1- 1/2 years ago, daily home stretching regimen, repositioning and rest. Interventional pain procedures completed include BL RFA L3-L5 Patient is currently on Tylenol OTC, ibuprofen OTC. Patient denies any side effects of the medication(s), denies excessive drowsiness or sleepiness, denies suicidal ideation and reports that the current pain medication is helping to control the pain and improve activities of daily living. Patient denies any motor or sensory deficits. Patient denies any fever or night sweats, denies any change in the bowel movements or urination. Physical Examination: -Constitutional: Cooperative. Not in acute distress . -HEENT: Neck is supple. No lymphadenopathy. No thyromegaly. Normal thyroid size. Eyes: No ptosis , no icterus, no photophobia. ENT: No auditory deficits. Normal oropharynx. No Thrush. - Respiratory: Chest clear to auscultations bilaterally. No wheezing. No rhonchi. - Cardiovascular: Regular rate and rhythm. S1 / S2 , no S3 , no S4. - Gastrointestinal: Abdomen soft no tenderness. Bowel sounds positive in all four quadrants. No organomegaly. - Genitourinary: Deferred. - Neurologic: Cranial nerve II to XII intact. No focal neurological deficits. - Psychatric: Alert & oriented x 3. Matching mood & appropriate affect. Judgment and insight intact. - Lymphatic: No Lymphadenopathy. - Musculoskeletal: Cervical spine: Muscle bulk/ tone/ strength in the bilateral upper extremities normal Vertebral body tenderness to palpation over Facet loading test positive Thoracic spine Muscle bulk / tone/ strength in the bilateral paraspinal muscles normal Vertebral body tender to palpation over Facet loading test positive Lumbar spine: Motor bulk/ tone/ strength lower extremities , thigh and legs : 5/5 Deep tendon reflexes : Normal Knee Jerk. Normal Ankle Jerk . Vertebral body tenderness to palpation over L5 Lumbar Facet Loading Test positive Straight Leg Raise: positive at 30 degrees right side/ left side Gaenslen's Test positive Sacral spine : Severe tenderness over the Sacroiliac joint: right side / left side Range of motion: Flexion of the lumbar spine <60 degrees Range of motion: Extension of the lumbar spine <20 degrees Gaenslen's Test positive Cj's Test positive Carlita test: positive right side / left side Thigh Thrust Test Sacral Thrust Test Assessment and plan: Chronic low back pain secondary to lumbar degenerative disc disease , lumbar spondylosis with facet arthropathy without myelopathy Patient experienced sufficient and optimal pain relief status post procedure. Prognoses discussed. She stated she will utilize her home pain management modalities at this time. She may return trough office on as-needed basis. All patient questions answered MAPS reviewed and it was appropriate. I have spent 31 minutes on patient care today. Dr Jacome was available by phone for the evaluation of this patient. The time was used to review the medical records including relevant urine studies and Prescription history (MAPs), review of the available imaging, evaluation and examination of the patient, coordination of care with the medical staff and if applicable referring physicians, as well as creation of the medical record Objective - Vital Signs Vital signs: Vital Signs Temp 98.9 F 08/31/21 09:54 Pulse 98 08/31/21 09:54 Resp 18 08/31/21 09:54 BP 139/80 08/31/21 09:54 Pulse Ox 94 L 08/31/21 09:54 FiO2 Intake & Output 08/30/21 08/31/21 08/31/21 18:59 06:59 18:59 Weight 81.647 kg PQRS Measure Charge Sheet Mode of Arrival: Ambulatory - Pain Location Lower Back Non-Pharmacological Interventions: Home Exercise, Ice, Physical Therapy, Sitting, Stretching Pharmacological Interventions: Block, Epidural, PRN Medication, Topical Medication PQRS Narrative: Blood Pressure 139/80 Pain Intensity [Lower Back] 7 Scale Used Numeric (1 - 10) Hx Alcohol Use (MH) No Home Medications: Ambulatory Orders Atorvastatin [Lipitor] 40 mg PO HS 03/12/20 DULoxetine HCL [Cymbalta] 60 mg PO QAM 03/12/20 Ferrous Sulfate [Slow Fe] 142 mg PO DAILY 03/12/20 Ibuprofen [Motrin] 800 mg PO TID PRN 03/12/20 Levothyroxine Sodium 100 mcg PO DAILY 03/12/20 Pentosan Polysulfate Sodium [Elmiron] 100 mg PO TID 03/12/20 Ubidecarenone [Co Q-10] 400 mg PO DAILY 03/12/20 DULoxetine HCL [Cymbalta] 30 mg PO HS 07/23/20 Omeprazole [PriLOSEC] 10 mg PO DAILY PRN 07/23/20 Ergocalciferol [Vitamin D2 (1250 Mcg = 86870 Iu)] 1,250 mcg PO MO 11/11/20
== END ==
LOC: PNWHC3 09:17
PROVIDERS: ATTEND Specialist
DX: M51.36 Other intervertebral disc degeneration, lumbar region (principal); M47.816 Spondylosis without myelopathy or radiculopathy, lumbar region; G89.29 Other chronic pain
CPT/HCPCS: 99211

== ENCOUNTER → 2021-12-15 | Outpatient (CLI) | payer MEDICARE ==
--- NOTE | 2021-12-15 08:36 | CT ---
EXAMINATION TYPE: CT chest wo con CT DLP: 291.60 mGycm, Automated exposure control for dose reduction was used. DATE OF EXAM: 12/15/2021 8:17 AM COMPARISON: CT chest abdomen and pelvis 11/12/2020. CLINICAL INDICATION:Female, 70 years old with history of R91.8 OTHER NONSPECIFIC ABNORMAL FINDING OF LUNG F; PHH, NODULES TECHNIQUE: Multiple axial images were obtained through the chest without IV contrast. Lack of IV or o ral contrast limits evaluation of solid and hollow organ viscera. Coronal and sagittal reformats revi ewed FINDINGS: LUNGS/ PLEURA: No pneumothorax or pleural effusion. No focal consolidation. Stable scattered pulmonar y nodules exams including a left lower lobe 5 mm nodule (series 4, image 40), a left lower lobe 4 mm nodule (series 4, image 44), and a 5 mm right lower lobe pulmonary nodule (series 4, image 32). No ne w or enlarging pulmonary nodules. AIRWAY: Patent and unremarkable. HEART: Size within normal limits. No pericardial effusion. Coronary arterial calcifications. MEDIASTINUM: No gross evidence of adenopathy. VASCULATURE: No aortic aneurysm. Atherosclerotic calcification of the aorta MUSCULOSKELETAL: No acute osseous abnormalities. No aggressive osseous lesion. Remote right-sided rib fractures. Degenerative changes of the visualized spine. SOFT TISSUES/LYMPH NODES: No axillary adenopathy. Medial left anterior chest subcutaneous tissue 2.8 cm ovoid lesion is stable and likely represents a benign process such as a sebaceous cyst. LOWER NECK: Postsurgical changes from thyroidectomy. UPPER ABDOMEN: Stable left adrenal adenoma. Partial visualization of epigastric ventral wall fat-cont aining hernia. Punctate nonobstructive left renal calculus. IMPRESSION: Stable bilateral pulmonary nodules measuring up to 5 mm. No new or enlarging pulmonary nodules.
== END | disposition home or self-care (01) ==
LOC: RADCTMAIN 08:00
PROVIDERS: ATTEND Family Medicine
DX: R91.8 Other nonspecific abnormal finding of lung field (principal)
CPT/HCPCS: 71250

== ENCOUNTER 2022-03-15 08:14 | Day surgery (SDC) | payer MEDICARE ==
[2022-03-12 09:28] VITALS: BMI 27.3
[2022-03-15] MEDS ORDERED: LIDOCAINE 1% (10MG/ML) FOR IV START INTRADERMA PRN (08:25)
[2022-03-15] MEDS ORDERED: LACTATED RINGERS 1,000 ML IV SCH (08:25)
[2022-03-15] MEDS ORDERED: LACTATED RINGERS 1,000 ML IV ONE (08:31)
[2022-03-15 08:39] VITALS: RESP 16; TEMP 97
[2022-03-15] MEDS ORDERED: PROPOFOL 10 MG/ML 20 ML VIAL IV ONE (08:59)
--- NOTE | 2022-03-15 09:06 | P.GSHP ---
History of Present Illness H&P Date: 03/15/22 CHIEF COMPLAINT: Colon screen HISTORY OF PRESENT ILLNESS: The patient is a 71-year-old female who presents for colon screen. Lower endoscopy was offered for further evaluation and management. PAST MEDICAL HISTORY: Please see list. PAST SURGICAL HISTORY: Please see list. MEDICATIONS: Please see list. ALLERGIES: Please see list. SOCIAL HISTORY: No illicit drug use FAMILY HISTORY: No reports of Crohn disease or ulcerative colitis. REVIEW OF ORGAN SYSTEMS: CONSTITUTIONAL: No reports of fevers or chills. PHYSICAL EXAM: VITAL SIGNS: Stable GENERAL: Well-developed pleasant in no acute distress. HEENT: No scleral icterus. Extraocular movements grossly intact. Moist buccal mucosa. NECK: Supple without lymphadenopathy. CHEST: Unlabored respirations. Equal bilateral excursions. CARDIOVASCULAR: Regular rate and rhythm. Distal 2+ pulses. ABDOMEN: Soft, nontender, nondistended. MUSCULOSKELETAL: No clubbing, cyanosis, or edema. ASSESSMENT: 1. Colon screen. PLAN: 1. Recommend proceeding with a lower endoscopy Past Medical History Past Medical History: GERD/Reflux, Hyperlipidemia, Musculoskeletal Disorder, Osteoarthritis (OA), Thyroid Disorder Additional Past Medical History / Comment(s): Bladder Cystitis, chronic low back pain, Spinal Stenosis. History of Any Multi-Drug Resistant Organisms: None Reported Past Surgical History: Bladder Surgery, Hysterectomy, Orthopedic Surgery Additional Past Surgical History / Comment(s): Bilateral hip replacements, thyroidectomy for multiple nodules, toe surgery, bladder procedure, Pain Clinic Procedures. Past Anesthesia/Blood Transfusion Reactions: No Reported Reaction Smoking Status: Former smoker - Past Family History Mother Family Medical History: Coronary Artery Disease (CAD) Additional Family Medical History / Comment(s): from heart problems. Medications and Allergies Home Medications Medication Instructions Recorded Confirmed Type Ferrous Sulfate [Slow Fe] 142 mg PO DAILY 03/12/20 03/15/22 History Ibuprofen [Motrin] 800 mg PO TID PRN 03/12/20 03/15/22 History Levothyroxine Sodium 100 mcg PO HS 03/12/20 03/15/22 History Pentosan Polysulfate Sodium 100 mg PO TID 03/12/20 03/15/22 History [Elmiron] DULoxetine HCL [Cymbalta] 30 mg PO HS 07/23/20 03/15/22 History Omeprazole [PriLOSEC] 10 mg PO DAILY PRN 07/23/20 03/15/22 History Ergocalciferol [Vitamin D2 (1250 1,250 mcg PO MO 11/11/20 03/15/22 History Mcg = 96098 Iu)] Diclofenac Submicronized 5 mg PO DAILY 03/12/22 03/15/22 History [Diclofenac] Allergies Allergy/AdvReac Type Severity Reaction Status Date / Time No Known Allergies Allergy Verified 03/15/22 08:35 Surgical - Exam Vital Signs Temp Pulse Resp BP Pulse Ox 97 F L 103 H 16 140/84 99 03/15/22 08:38 03/15/22 08:38 03/15/22 08:38 03/15/22 08:38 03/15/22 08:38
--- NOTE | 2022-03-15 09:23 | P.PCN ---
Date of Procedure: 03/15/22 Description of Procedure: PREOPERATIVE DIAGNOSIS: Colonoscopy screening. POSTOPERATIVE DIAGNOSIS: Colonoscopy screening. OPERATION: Colonoscopy to the cecum, ileocecal valve SURGEON: Candy Jeter MD. ANESTHESIA: MAC. INDICATIONS: The patient is a 8 last colonoscopy 5 years ago. 11-year-old female who presents for colonoscopy screening. Benefits and risks were described and informed consent was obtained. DESCRIPTION OF PROCEDURE: The patient had undergone Sutab prep. The patient had been brought into the operating room and laid in the left lateral decubitus position. After adequate intravenous sedation, the rectum was examined with 2% lidocaine jelly. External hemorrhoids were encountered. The rectal tone was within normal limits. No lesions were palpated in the rectal vault. An Olympus colonoscope was advanced until the cecum, ileocecal valve and appendiceal orifice were clearly viewed. The prep was fair. No large scattered diverticulosis was encountered. No colonic polyps were found. No evidence of focal colitis was found. Retroflexion of the scope demonstrated grade 3 internal hemorrhoids without active bleeding or inflammation. The colon was desufflated. The patient had tolerated the procedure well. Withdrawal time was over 6 minutes. FINDINGS: Aronchick preparation quality scale 3 (1-5) Internal hemorrhoids, grade 3 External prolapsed hemorrhoids, grade 3 No arteriovenous malformations. No adenomatous polyps. No focal colitis. No large sigmoid diverticulosis RECOMMENDATIONS: Lower endoscopy in 3 years, 2024 due to poor prep Plan - Discharge Summary New Discharge Prescriptions: Continue Ferrous Sulfate [Slow Fe] 142 mg PO DAILY Levothyroxine Sodium 100 mcg PO HS Ibuprofen [Motrin] 800 mg PO TID PRN PRN Reason: Pain Pentosan Polysulfate Sodium [Elmiron] 100 mg PO TID Omeprazole [PriLOSEC] 10 mg PO DAILY PRN PRN Reason: GERD Ergocalciferol [Vitamin D2 (1250 Mcg = 82067 Iu)] 1,250 mcg PO MO Diclofenac Submicronized [Diclofenac] 5 mg PO DAILY DULoxetine HCL [Cymbalta] 30 mg PO HS Discharge Medication List Ferrous Sulfate [Slow Fe] 142 mg PO DAILY 03/12/20 [History] Ibuprofen [Motrin] 800 mg PO TID PRN 03/12/20 [History] Levothyroxine Sodium 100 mcg PO HS 03/12/20 [History] Pentosan Polysulfate Sodium [Elmiron] 100 mg PO TID 03/12/20 [History] DULoxetine HCL [Cymbalta] 30 mg PO HS 07/23/20 [History] Omeprazole [PriLOSEC] 10 mg PO DAILY PRN 07/23/20 [History] Ergocalciferol [Vitamin D2 (1250 Mcg = 82415 Iu)] 1,250 mcg PO MO 11/11/20 [History] Diclofenac Submicronized [Diclofenac] 5 mg PO DAILY 03/12/22 [History] Follow up Appointment(s)/Referral(s): Candy Jeter MD [STAFF PHYSICIAN] - As Needed Patient Instructions/Handouts: *Surgery [facility] - (Anesthesia) Endoscopy Discharge Instructions, Colonoscopy (DC) Activity/Diet/Wound Care/Special Instructions: Repeat colonoscopy in 3 years, 2024 Discharge Disposition: HOME SELF-CARE
[2022-03-15 09:36] VITALS: BP 136/89; PULSE 88
== END 2022-03-15 09:50 | disposition home or self-care (01) ==
LOC: ORWHC2ENDO 08:14
PROVIDERS: ATTEND Surgery Plastic and Reconstructive Surgery
DX: Z12.11 Encounter for screening for malignant neoplasm of colon (principal); K64.4 Residual hemorrhoidal skin tags; K64.2 Third degree hemorrhoids; E78.5 Hyperlipidemia, unspecified; F12.20 Cannabis dependence, uncomplicated; K21.9 Gastro-esophageal reflux disease without esophagitis; M62.9 Disorder of muscle, unspecified; M19.90 Unspecified osteoarthritis, unspecified site; E07.9 Disorder of thyroid, unspecified; Z79.890 Hormone replacement therapy; Z87.39 Personal history of other diseases of the musculoskeletal system and connective tissue; Z96.643 Presence of artificial hip joint, bilateral; Z90.79 Acquired absence of other genital organ(s); Z98.890 Other specified postprocedural states; Z87.891 Personal history of nicotine dependence; Z79.1 Long term (current) use of non-steroidal anti-inflammatories (NSAID); Z79.891 Long term (current) use of opiate analgesic; Z79.899 Other long term (current) drug therapy; Z82.49 Family history of ischemic heart disease and other diseases of the circulatory system
CPT/HCPCS: 45378; J2704

== ENCOUNTER → 2022-04-01 | Outpatient (CLI) | payer MEDICARE ==
--- NOTE | 2022-04-01 08:54 | MR ---
EXAMINATION TYPE: MR lumbar spine wo con DATE OF EXAM: 04/01/2022 COMPARISON: CT chest abdomen and pelvis November 12, 2020 HISTORY: Low back pain into brianna lower legs, degenerative scoliosis TECHNIQUE: Multiplanar, multisequence imaging of the lumbar spine is performed without IV contrast. FINDINGS: S-shaped scoliosis is redemonstrated. There is straightening of lumbar spine on sagittal im ages redemonstrated. Vertebral body heights are maintained. Multilevel disc desiccation with multilev el moderate to advanced disc space narrowing and mild to moderate multilevel anterior spurring is red emonstrated. Heterogeneous Modic type II endplate changes involve the right L3-L4 and right L5-S1 lev els. The conus medullaris is normal in position and signal ending inferior L1 level. Axial images at T12-L1 level show moderate broad disc bulge effacing the anterior thecal sac with mil [id number]-le-efmiaxhe facet arthropathy and ligamentum flavum hypertrophy effacing the posterolateral thecal sac. Patent bilateral neural foramina. Axial images at L1-L2 level shows moderate facet arthropathy and ligamentum flavum hypertrophy effaci ng the posterior lateral thecal sac. There is moderate broad disc bulge effacing anterior thecal sac. Patent bilateral neural foramina. Axial images at L2-L3 level show moderate facet arthropathy bilaterally. There is [id number]-mu-ugsvkrht br oad disc bulge mildly effacing the anterior thecal sac. There is mild to moderate bilateral neural fo raminal narrowing. Axial images at L3-L4 level show moderate facet arthropathy bilaterally effacing posterior lateral th ecal sac. There is moderate broad disc bulge effacing the anterior thecal sac. There is mild to moder ate left greater than right bilateral neural foraminal narrowing. Axial images at L4-L5 level shows moderate facet arthropathy and ligamentum flavum hypertrophy effaci ng posterior lateral thecal sac. There is mild bilateral anterior inferior neural foraminal narrowing due to mild broad disc bulge. Axial images at L5-S1 level shows subtle spondylolisthesis with moderate facet arthropathy greater on the right. Spinal canal is preserved. Bilateral neural foramina are patent. Paraspinal muscle bulk is preserved. IMPRESSION: Scoliosis and loss of normal lumbar lordosis with multilevel degenerative changes as deta iled above.
== END | disposition home or self-care (01) ==
LOC: RADMRIMAIN 07:56
PROVIDERS: ATTEND Nurse Practitioner Family
DX: M47.816 Spondylosis without myelopathy or radiculopathy, lumbar region (principal); M41.86 Other forms of scoliosis, lumbar region
CPT/HCPCS: 72148

== ENCOUNTER → 2022-06-22 | Outpatient (CLI) | payer MEDICARE ==
--- NOTE | 2022-06-22 10:36 | CA ---
Stress Echo Report Nicole Luis Age: 71 Gender: F : 1950 Exam Date: 06/22/2022 08:57 Exam Location: [facility] Ht (in): 67 Wt (lb): 180 Ordering Physician: Ramana Xie MD Referring Physician: Rojas UNDERWOOD Orchestrator: Mignon Herman RDCS Technologist Procedure CPT: Indication: I25.10 Athscl heart disease ICD-9 Codes: Rhythm: Patient History: Asymptomatic Cardiac Medications: NONE Medications in past 24 hours: NONE Contrast: Stress Results Protocol: Yong Total dose(mL): Exercise Duration (min:sec): 2:[address] Depression (mm): Angina Score: Trujillo Score: METS: 3.2 Resting HR: 104 Resting BP: 153 / 86 Peak HR: 134 Peak BP: 210 / 87 Max Predicted HR: 151 89 % Max Predicted HR Target HR: 128 Double Product: [id number] Stress Summary: The patient's target heart rate was achieved BP Response: Normal Reason for Termination: Fatigue Cardiac Symptoms: DIFFICULTY IN BREATHING ECG Analysis Resting ECG: Stress ECG: Arrhythmia: Echo Analysis Resting Echo: Peak Echo Analysis: MEASUREMENTS (Male/Female) Normal Values CONCLUSIONS Patient underwent exercise stress echo with a Yong protocol treadmill stress test. Patient exercised into Stage 1 for a total of 2 minutes reaching a total of 3.2 METS. Patient's maximum heart rate was 134 which represented 88 % age-predicted maximum heart rate. Stress EKG portion: At baseline patient's EKG showed normal sinus rhythm, normal axis, no significant ST or T wave abnormalities. At peak exercise, EKG showed no significant change from baseline. Stress echo portion: 2-D echocardiogram was performed in the parasternal long, personal short, apical 2 and apical four-chamber views at rest, peak exercise and in recovery. At baseline, echocardiogram showed left ventricular ejection fraction 55 % without wall motion abnormalities. With peak exercise, echocardiogram shows improvement in left ventricular ejection fraction, increase contractility, decrease in left ventricular end systolic dimension without wall motion abnormalities consistent with a normal response to exercise. Conclusions: 1. Normal EKG and echo response to exercise without evidence of inducible ischemia. 2. Poor exercise capacity. Dr. Ryan Rivers DO (Electronically Signed) Final Date: 22 June 2022 10:35
--- NOTE | 2022-06-22 11:08 | CA ---
Transthoracic Echo Report Name: Nicole Luis Age: 71 Gender: F : 1950 Exam Date: 06/22/2022 08:48 Exam Location: [facility] Ht (in): 67 Wt (lb): 180 Ordering Physician: Ramana Xie MD Attending/Referring Phys: YASMINE, Rojas [employer]our Broker Mignon Herman RDCS Procedure CPT: Indications: I25.10 Athscl heart disease Cardiac Hx: Technical Quality: Fair Contrast 1: Total Dose (mL): Contrast 2: Total Dose (mL): MEASUREMENTS (Male / Female) Normal Values 2D ECHO LV Diastolic Diameter PLAX 4.4 cm 4.2 - 5.9 / 3.9 - 5.3 cm LV Systolic Diameter PLAX 3.0 cm IVS Diastolic Thickness 1.2 cm 0.6 - 1.0 / 0.6 - 0.9 cm LVPW Diastolic Thickness 1.1 cm 0.6 - 1.0 / 0.6 - 0.9 cm LV Relative Wall Thickness 0.5 RV Internal Dim ED PLAX 3.3 cm LA Volume 60.6 cm??? 18 - 58 / 22 - 52 cm??? M-MODE Aortic Root Diameter MM 3.1 cm LA Systolic Diameter MM 4.1 cm LA Ao Ratio MM 1.3 AV Cusp Separation MM 1.8 cm DOPPLER AV Peak Velocity 147.5 cm/s AV Peak Gradient 8.7 mmHg AV Mean Velocity 108.7 cm/s AV Mean Gradient 5.0 mmHg AV Velocity Time Integral 33.5 cm LVOT Peak Velocity 93.8 cm/s LVOT Peak Gradient 3.5 mmHg LVOT Velocity Time Integral 22.2 cm MV Area PHT 2.6 cm??? Mitral E Point Velocity 50.0 cm/s Mitral A Point Velocity 104.5 cm/s Mitral E to A Ratio 0.5 MV Deceleration Time 288.7 ms MV E' Velocity 8.3 cm/s Mitral E to MV E' Ratio 6.0 TR Peak Velocity 245.3 cm/s TR Peak Gradient 24.1 mmHg Right Ventricular Systolic Press 29.1 mmHg FINDINGS Left Ventricle Mildly increased left ventricular wall thickness. Left ventricular cavity size normal. Normal left ventricular systolic function with no obvious regional wall motion abnormalities. Left ventricular ejection fraction is estimated at 55- 60%. Right Ventricle Normal right ventricular size and function. Right ventricular systolic pressure within normal limits. Right Atrium Normal right atrial size. Aneurismal interatrial septum. Left Atrium Mildly increased left atrial volume. Mildly increased left atrial area. Mitral Valve Structurally normal mitral valve. No mitral stenosis. Mild mitral regurgitation. Aortic Valve Trileaflet aortic valve. No aortic valve stenosis or regurgitation. Tricuspid Valve Structurally normal tricuspid valve. Mild tricuspid regurgitation. Pulmonic Valve Structurally normal pulmonic valve. Pericardium No pericardial effusion. Aorta Normal size aortic root and proximal ascending aorta. CONCLUSIONS Left ventricular ejection fraction 55-60% Mild dilated left atrium Mild mitral regurgitation Mild tricuspid regurgitation No pericardial effusion Previewed by: Dr. Ryan Rivers DO (Electronically Signed) Final Date: 22 June 2022 11:07
== END | disposition home or self-care (01) ==
LOC: RADECHMAIN 08:25
PROVIDERS: ATTEND Family Medicine
DX: I08.1 Rheumatic disorders of both mitral and tricuspid valves (principal); I25.10 Atherosclerotic heart disease of native coronary artery without angina pectoris; I25.2 Old myocardial infarction
CPT/HCPCS: 93306; 93351

== ENCOUNTER → 2022-11-22 | Outpatient (CLI) | payer MEDICARE ==
--- NOTE | 2022-11-22 09:01 | CT ---
EXAMINATION TYPE: CT lumbar spine wo con DATE OF EXAM: 11/22/2022 7:04 AM COMPARISON: 03/24/2020 HISTORY: Scoliosis CT DLP: 468.30 mGycm Automated exposure control for dose reduction was used. Unenhanced CT of the lumbar spine was performed. Bone and soft tissue window settings are submitted as well as coronal and sagittal reconstructions. There is rotoscoliosis convex to the right. L1-L2: Severe disc desiccation. Vacuum disc noted. Posterior disc bulge. There is mild central stenos is. Right foraminal encroachment. L2-L3: Vacuum disc. Posterior disc bulge. Hypertrophic changes of the facet joints and hypertrophy of the ligamentum flavum result in [id number] central stenosis. Bilateral foraminal encroachment. L3-L4: Vacuum disc with severe degenerative narrowing and endplate sclerosis. Posterior disc bulge wi th associated spurring. Hypertrophied ligamentum flavum and facet joint arthropathy results in severe central stenosis. Bilateral foraminal encroachment. L4-L5: Vacuum disc noted. Posterior disc bulge. Moderate central stenosis. Bilateral foraminal encroa chment. L5-S1: Severe degenerative disc space narrowing. Posterior disc bulge and associated partially encaps ulating spur. Effacement of the ventral thecal sac with right lateral recess stenosis and right rianna inal encroachment. Small amount of epidural air is seen. Left adrenal adenoma. IMPRESSION: 1. Severe multilevel degenerative disc disease and multilevel foraminal encroachment and central sten osis as outlined above.
--- NOTE | 2022-11-22 09:09 | CT ---
EXAMINATION TYPE: CT thoracic spine wo con DATE OF EXAM: 11/22/2022 COMPARISON: 03/24/2020 HISTORY: Scoliosis CT DLP: 554.50 mGycm Automated exposure control for dose reduction was used. Unenhanced CT of the thoracic spine was perfo rmed in the axial coronal and sagittal planes. Bone and soft tissue windows are reviewed. FINDINGS: There is scoliotic curvature convex to the right. There is moderate degenerative disc space narrowing and spondylosis midthoracic spine extending from T7 through T12-L1. There is posterior disc bulging and partially encapsulating spur resulting in disc endplate complex. Facet joint arthropathy mid and lower thoracic spine. Degenerative grade 1 retrolisthesis is again noted to extend from T7 through th e T11 levels. Mild narrowing of the spinal canal at T9-10 and T10-11 persists without high-grade mckay l compromise. No evidence of fracture or malalignment. No bony lesions seen. No paraspinal mass evide nt. IMPRESSION: STABLE DEGENERATIVE CHANGES NOTED ABOVE.
== END | disposition home or self-care (01) ==
LOC: RADCTMAIN 06:42
PROVIDERS: ATTEND Orthopaedic Surgery
DX: M51.36 Other intervertebral disc degeneration, lumbar region (principal); M48.061 Spinal stenosis, lumbar region without neurogenic claudication; M41.86 Other forms of scoliosis, lumbar region; M47.814 Spondylosis without myelopathy or radiculopathy, thoracic region; M51.34 Other intervertebral disc degeneration, thoracic region
CPT/HCPCS: 72128; 72131

== ENCOUNTER → 2022-12-07 | Outpatient (CLI) | payer MEDICARE ==
--- NOTE | 2022-12-07 21:01 | MR ---
EXAMINATION TYPE: MR thoracic spine wo con DATE OF EXAM: 12/07/2022 8:38 PM CLINICAL INDICATION:Female, 71 years old with history of M54.6 PAIN IN THORACIC SPINE; [facility], Mid and l ow back for 15 years COMPARISON: 11/22/2022 TECHNIQUE: Multi planar, multi sequence imaging was performed utilizing: T1-weighted, short-tau inver alejandro recovery and T2-weighted of the thoracic spine. The patient was not given Gadolinium. IV Contrast: None FINDINGS: Motion limited exam. There is multilevel disc bulging throughout the visualized spine. Alignment: Alignment is within normal limits. Vertebral bodies have preserved heights. Grade 1 carly listhesis of C7 on T1. There is moderate to severe bilateral neural foraminal stenosis. Spinal cord: Spinal cord is within normal limits for signal. Discs: Scattered disc desiccation is present. Moderate to severe degeneration of the thoracic spine w ith multilevel disc bulging with osteophytes. Significant findings: * T7-T8 central disc protrusion which impresses upon the spinal cord. No significant spinal canal st enosis. * Moderate spinal canal stenosis at T10-T11 secondary to disc bulging and osteophyte with facet join t arthropathy. * T12-L1 osteophyte and disc bulge with moderate to severe spinal canal stenosis. * Degeneration changes with neural foraminal stenosis worse on the right at T12-L1 with moderate to severe and moderate L1-L2. On the left moderate to severe T9-T10 and T10-T11. Osseous structures: Measurement recovery sequence edema at the joint can't endplates of T12, T11 with Modic endplate changes.. Multilevel osteophyte formation and facet joint arthropathy. Scattered disc space narrowing. High T2/lower T1 signal centrally and higher T1 signal peripherally probable atypic al vertebral body hemangioma. IMPRESSION: 1. Moderate to severe degeneration of the thoracic spine with multilevel disc bulging with osteophyt es worse at T10-T11 with adjoining endplate edema. Neural foraminal stenosis worse at T12-L1 moderate to severe right and moderate right L1-L2. Neural foraminal stenosis worse on the left at T9-T10 and T10-T11 with moderate to severe stenosis. 2. T7-T8 central disc protrusion which impresses upon the spinal cord. No significant spinal canal stenosis. 3. Moderate spinal canal stenosis at T10-T11 secondary to disc bulging and osteophyte with facet jose nt arthropathy. 4. T12-L1 osteophyte and disc bulge with moderate to severe spinal canal stenosis. 5. Moderate to severe degeneration changes in the cervical spine with at least moderate spinal canal stenosis at multiple levels. Further evaluation MRI cervical spine recommended.
== END | disposition home or self-care (01) ==
LOC: RADMRIMAIN 19:06
PROVIDERS: ATTEND Orthopaedic Surgery
DX: M51.34 Other intervertebral disc degeneration, thoracic region (principal); M51.35 Other intervertebral disc degeneration, thoracolumbar region; M48.05 Spinal stenosis, thoracolumbar region; M99.73 Connective tissue and disc stenosis of intervertebral foramina of lumbar region; M47.814 Spondylosis without myelopathy or radiculopathy, thoracic region; M50.30 Other cervical disc degeneration, unspecified cervical region; M48.02 Spinal stenosis, cervical region
CPT/HCPCS: 72146

== ENCOUNTER → 2022-12-16 | Outpatient (CLI) | payer MEDICARE | END | disposition home or self-care (01) | LOC: LABPAT 08:39 | PROVIDERS: ATTEND Orthopaedic Surgery | DX: Z01.812 Encounter for preprocedural laboratory examination (principal); Z22.322 Carrier or suspected carrier of Methicillin resistant Staphylococcus aureus; M41.86 Other forms of scoliosis, lumbar region | CPT/HCPCS: 87070 ==

== ENCOUNTER 2022-12-27 07:30 | Inpatient (IN) | payer MEDICARE ==
--- NOTE | 2022-12-27 07:12 | P.HPOR ---
History of Present Illness H&P Date: 12/16/22 Chief Complaint: Leg weakness, BI, UI .D:Date: 12/16/22 : 08:08am .T:Title: [facility] History and Physical Date of :[birth year] R14Age: 71 year Height: 5'7" Weight: 185 lbs BP:122/70 BMI: 28.97 kg/m2 Occupation: Retired VAS: 7 CHIEF COMPLAINT: Preoperative evaluation for E65-gccure decompression and fusion DOI: Chronic > 1 year DOS: n/a Duration of current treatment regiment:> 6 months HISTORY : Xrays No new xrays taken in office Trauma or injury No Work-Related No Pain description Constant, aching, & sharp Location Posterior Activity Modification No Hand Dominance Right TREATMENTS COMPLETED: 6 weeks of PT completed? Month and Year of last PT date? Yes How many sessions? 12 Did it help? yes slight relief Physician directed home exercise completed? yes Medications yes List: [facility] Chiropractic:yes Massage therapy:yes R.I.C.E:yes Brace: No Injections No RFA: No SUBJECTIVE: Ms. Luis returns to the office today for a preoperative evaluation preceeding her L85-[id number] decompression and fusion. She states she continues to have severe LE sx as well as now she is experiencing some bowel and bladder issues as of the past two days where she cannot get to the toilet fast enough and has accidents. She does not states she overtly loses control, but she does state some inner thigh tingling that has started as well. She denies any f/c/sob/cp at this time. She denies any other new sx. She states she is ready for surgery. We discussed everything at length. All questions were answered and we discussed all optoins once again. The patient states that her symptoms have become debilitating and are significantly affecting her overall quality of life. Otherwise the patient denies any f/c/sob/cp, no perineal numbness/tingling, and ambulates independently today. HPI: Ms. Luis returns to the office on 09/13/2022 for a re-check on her low back pain.The patient notes worsening lumbar pain that radiates down into the bilateral lower extremities. The patient states that her lower extremity pain is associated with numbness and tingling. The patient states recurrent bladder incontinence. The patient recently experienced an incident of bowel incontinence as well. The patient notes that her low back and lower extremity symptoms are exacerbated by all activities. The patient has trialed conservative treatment measures in the form of physical therapy, care transitions manager, massage therapy, at home exercises, at home heat/ice therapies, and medication management all with no significant relief of her symptoms. The patient is currently taking Aurora, which provides her with minimal relief at this time. The patient states that her symptoms have become debilitating and are significantly affecting her overall quality of life. Otherwise the patient denies any f/c/sob/cp, no perineal numbness/tingling, and ambulates independently today. Ms. Luis returns to the office for recheck on 05/13/2022 for her low back pain. Patient continues to report intermittent aching and sharp lumbar pain that radiates across her lower back and to her buttocks and bilateral lower extremities, associated without numbness and tingling. She does report that she has shooting pains into her shins. Overall the patient has seen a progressive increase in her symptoms since their onset. Otherwise the patient denies any f/c/sob/cp, no bladder or bowel retention/incontinence, no perineal numbness/tingling, and ambulates independently. Ms. Luis returns to the office for recheck of her low back pain and MRI results on 04/07/2022. Patient continues to report intermittent aching and sharp lumbar pain that radiates across her lower back and to her buttocks and bilateral lower extremities, associated without numbness and tingling. She does report that she has shooting pains into her shins. Overall the patient has seen a progressive increase in her symptoms since their onset. MRI results of the lumbar spine have been reviewed and discussed. Patient feels she has exhausted all conservative measures at this time, and would like to sit with Dr. Cosme to discuss possible surgical intervention. Otherwise the patient denies any f/c/sob/cp, no bladder or bowel retention/incontinence, no perineal numbness/tingling, and ambulates independently. Ms. Luis was last seen on 03/10/2022 regarding a recheck of their low back pain. Patient continues to report an intermittent aching and sharp lumbar pain ongoing for years with no known injury or trauma to indicate an exact onset of their symptoms. In addition to their lumbar pain, they do report that it radiates into the bilateral lower extremities, associatedwithout numbness and tingling. Patient reports pain in her shins. Overall the patient has seen a progressive increase in symptoms since their onset. Ms. Luis symptoms are exacerbated with ambulation and lifting any objects, due to this they notes that it is increasingly difficult for Ms. Luis to complete many of their daily tasks. Patient states she is only able to ambulate short distances before she feels that her legs are tired. Patient is having moderate sleep disturbances as well due to their ongoing pain and associated symptoms. Regarding treatments, the patient has previously trialed the above listed modalities. Patient denies trialing any other modalities at this time. For their symptoms, the patient has been taking Motrin 800mg TID as needed. Otherwise the patient denies any f/c/sob/cp, no bladder or bowel retention/incontinence, no perineal numbness/tingling, and ambulates independently. Ms. Luis was last seen on 06/26/2020 regarding a follow up on her lumbar scoliosis. She completed physical therapy 2 weeks ago and doing home exercises with relief. Patient is taking Ibuprofen as needed for pain. Patient is ambulating independently. denies a bowel or bladder issues. Denies perineal numbness or tingling. States really no radiculopathy at this time. States no weakness or lower extremities at this time. This 69 year old female presents today 04/17/[address] of the thoracic/lumbar spine results. She notes low back pain that radiates down her right leg. She notes that her back pain increases with prolonged walking and standing. Patient has history of bladder incontinence/cystitis. Patient is taking Motrin 800mg three times a day for pain. Patient is ambulating independently. She has not started a new course of physical therapy yet. This 69 year old female presents 03/10/2020 with low back pain. Patient denies any specific injury. She states that she has had intermittent back pain for 30 years. She reports right sided pain that radiates down into her bilateral lower extremities. She notes numbness and that her pain increases with prolonged weight bearing and sitting. She does have some urinary incontinence. She had a previous steroid injection a few months ago with no relief. She completed physical therapy 6 months ago with some improvements. she has had injections ablations physical therapy and all other modalities of treatment which have not gained her any decrease in her symptoms. She complains that this is interfering with her life really significantly at this point and she is even avoiding going to family functions due to being self-conscious and the possibility that she may have an accident. Patient is taking Motrin as needed for pain. Patient is ambulating independently. she denies perineal numbness or tingling at this time. The patients' past social, medical, family, surgical history, as well as review of systems, have been reviewed. Please refer to the Neurosurgery History and Physical form that has been scanned in to our electronic medical record system. 14 points review of systems completed and as stated in HPI, all other systems reviewed are negative. Social History: Reviewed, see appropriate section of the chart for details. P3 Family History: Reviewed, see appropriate section of the chart for details. P2 Past Medical History: Reviewed, see appropriate section of the chart for details. [id number] Medications: Rx: Cymbalta Ref: 0 Rx: Elmiron 100 mg capsule Ref: 0 Rx: Synthroid 125 mcg tablet Ref: 0 Rx: cyclobenzaprine 5 mg tablet Ref: 0 Rx: gabapentin 300 mg capsule Ref: 0 PHYSICAL EXAMINATION: General:Awake, alert, appropriate for age, in no acute distress. HEENT:No unusual neck masses around region of lateral neck triangle, thyroid, supraclavicular groove Heart:Regular rate and rhythm, normal S1, S2 and no murmur/gallop. Lungs:Clear to auscultation bilaterally with no use of accessory muscles. Extremities: Skin warm and dry without acute lesions, coloration, temperature, skin intact, no tenderness or erythema Integument: Hairy patches:ABSENT Dorsal skin dimples:ABSENT Cafe au lait spots: ABSENT Surgical incisions:n/a Palpation: Please see Pain drawing on Intake sheet for further detail. Midline spinal tenderness: YES E6 Cervical Tenderness: No E6 Paralumbar tenderness:Yes E6 Parathoracic tenderness:No E6 Buttocks tenderness:No E6 Sacroiliac Tenderness:No POSTURAL and MUSCULO-SKELETAL EVALUATION: Coronal Balance:NEUTRAL Recumbent testing:Patient isable to lay flat on back Sagittal Balance:POS Shoulder Profile: UNLEVEL Pelvic Girdle:LEVEL Neck ROM:RESTRICTED Lumbar ROM:RESTRICTED Shoulder ROM:Symmetrical Hip ROM:Symmetrical Knee ROM:Symmetrical Hands:Normal appearance, symmetrical Feet:Normal appearance, Symmetrical VASCULAR STATUS : LEFT RIGHT Wrist Pulses INTACT INTACT Pedal Pulses (Dors. pedis & post.tibialis) INTACT INTACT Color NORMAL NORMAL Edema Absent Absent NEUROLOGIC EXAMINATION: Mental Status:Awake and alert, fully oriented, with normal attention, concentration and memory, and fluent, appropriate speech. Cranial Nerves: I: Olfactory not tested. II: Visual acuity normal, no visual field deficit noted with confrontation. III,IV: Normal pupillary reflexes & intact extraocular movements without nystagmus. V,: Intact symmetrical facial sensation. VII: Intact symmetrical facial motor movement VIII: Hearing intact. IX,X: Intact gag, swallow, & normal voice. XI: Sternocleidomastoid, trapezius function intact. XII: Tongue midline with normal movements. L'hermitte's Sign:Negative / absent Spurling'Sign:Absent bilaterally. Cubital percussion test:Absent bilaterally. Marroquin-Tinel sign - Carpal region:Absent bilaterally. Straight Leg Raising:Absent bilaterally. Crossed straight leg raise:negative O8 MOTOR EXAM (0-5/5, N/T Muscle appearance: Symmetrical, without signs of atrophy or dystrophy UPPER EXTREMITY RIGHT LEFT Shoulder Abduction 5/5 5/5 Biceps 5/5 5/5 Triceps 5/5 5/5 Wrist Extension 5/5 5/5 Hand Intrinsic 5/5 5/5 Yard Assistant 5/5 5/5 Hand and finger dexterity intact bilaterally? yes Disdiadochokinesis examination negative bilaterally? yes LOWER EXTREMITY RIGHT LEFT Hip Flexion 4 4 Knee Extension 4 4 Knee Flexion 4 4 Dorsiflexion 4 4 Plantarflexion 4 4 EHL 4 4 FHL 4 4 Toe heel walk / heel-toe walk intact while maintaining satisfactory balance? Yes Squatting/straightening w/o assistance to a min of 60 degree knee flexion? No Single leg stance: intact Trendelenburg sign negative bilaterally REFLEXES(0-4/2, NT)Upper ExtremityLower Extremity Right 2 1 Left 2 1 Pathological Reflexes RIGHT LEFT Marroquin's Absent Absent Clonus Absent Absent Babinski Absent Absent Sensory system (0-4, N/T) Test type RU ISAIAH RL LL Joint-Position 2 2 2 2 Vibration 2 2 2 2 Pain & LT sense 2 2 2 2 Dermatomal Deficit: None None Global Global Gait and Functional Evaluation: Ambulatory aids:Independent Romberg's test:Intact bilaterally Steady Gait RADIOGRAPHS: Xray Lumbar spine taken at [facility] on 03/10/22 re-reviewed today: - Reviewed in office with patient today. These demonstrate lumbar degenerative scoliosis with a coronal imbalance and levoscoliosis of around 22 degrees and a fractional curve at L5-S1 of 15 degrees. There is lateral collapse and lateral listhesis associated at L4-5 and L3-4 causing most of the deformity. No acute fracture. LL is flattened to around 30 deg with PI around 55 deg. There are no fractures noted. No lesions. noted. AP pelvis shows post ESTUARDO changes without evidence of complicating process. MRI [facility] 04/01/22 of LumbarSpine: - Reviewed in office with patient today. This is reviewed and demonstrates again severe degenerative lumbar scoliosis with spondylosis from T10-S1 with disc collapse, osteophytic changes, ligamental hypertrophy and facet hypertrophy. These contribute to severe stenosis at L1-S1 with collapse of the normal LL due to disc height collapse as well.This causing foraminal stenosis at these levels as well that is severe. No fracture noted. NO lesions noted. Severe coronal and sagittal deformity accompany this overall picture. ASSESSMENT: 1. Lumbar degenerative scoliosis 2. Urinary and bowel incontinence 3. L1-S1 severe spondylosis with stenosis 4. Low back pain PLAN: Based on my findings I suggest the following course of action: I discussed treatment options with the patient, including operative and non- operative options, and they have elected to proceed with the following surgical procedure: Thoracic 10 to pelvis decompression and fusion The indications, risks, benefits, and alternatives to surgery were discussed with the patient and family at length. Specifically (but not limited to) the risks of infection, stiffness, recurrence of symptoms, need for revision surgery, local numbness, neurovascular injury, and blood clots were discussed. The patient's questions were answered. - I discussed with the patient that due to her bladder and bowel incontinence she should schedule surgical intervention sooner rather than later. -I have ordered a CT scan of the thoracic and lumbar spine for the patient to complete prior to surgery. - Ambulate daily - Take medications as directed - Ice and rest for pain and swelling control. Spine Surgery Risk Review Ms. Luis is presenting for evaluation of low back pain. It was my pleasure to have seen and examined Ms. Luis. In our visit today we have had a chance to go over subjective complaints, physical examination findings and treatments including the natural course history without intervention and various interventional options. The patients imaging demonstrates: Xray Lumbar spine taken at [facility] on 03/10/22 re-reviewed today: - Reviewed in office with patient today. These demonstrate lumbar degenerative scoliosis with a coronal imbalance and levoscoliosis of around 22 degrees and a fractional curve at L5-S1 of 15 degrees. There is lateral collapse and lateral listhesis associated at L4-5 and L3-4 causing most of the deformity. No acute fracture. LL is flattened to around 30 deg with PI around 55 deg. There are no fractures noted. No lesions. noted. AP pelvis shows post ESTUARDO changes without evidence of complicating process. MRI [facility]completed [facility] from 04/01/22 of [facility]: - Reviewed in office with patient today. This is reviewed and demonstrates again severe degenerative lumbar scoliosis with spondylosis from T10-S1 with disc collapse, osteophytic changes, ligamental hypertrophy and facet hypertrophy. These contribute to severe stenosis at L1-S1 with collapse of the normal LL due to disc height collapse as well.This causing foraminal stenosis at these levels as well that is severe. No fracture noted. NO lesions noted. Severe coronal and sagittal deformity accompany this overall picture. On physical exam, Ms. Luis demonstrates: worsening lumbar pain that radiates down into the bilateral lower extremities. The patient states that her lower extremity pain is associated with numbness and tingling. The patient states recurrent bladder incontinence. The patient recently experienced an incident of bowel incontinence as well. Te patient notes that her low back and lower extremity symptoms are exacerbated by all activities. The patient states that her symptoms have become debilitating and are significantly affecting her overall quality of life. I have explained to the patient that as their condition progresses it will cause further neurological deficits and eventual paralysis. Based on the patients imaging, physical exam, and the rapid progression and disabling nature of their symptoms, at this time I recommend surgery in the form of a: T10 - pelvis decompression and fusion. I discussed the risk and benefits of this procedure at length with Ms. Luis. The patient agreed to considered pursuing the procedure above mentioned . Prior to surgery, she should follow up with her PCP (Cardio, ID, IM etc) for clearance. Questions were invited and answered, and the patient wishes to proceed as outlined below. Currently, I am recommendin.Thoracic 10 - pelvis decompression and fusion 2.Follow up with PCP for surgical clearance 3. Follow up with Dr. Fuentes for surgical clearance regarding her diagnosis of cystitis 4.Review of surgical risks and benefits as well as an educational packet on the proposed surgical procedure. Risks: All surgical procedures come with inherent risks, including those related to positioning, anesthesia, intraoperative findings, and postoperative complications. It is important to understand that surgery does not come with any guarantee of a successful outcome as complications and adverse events are always possible. The patient was given a handout in office today discussing the surgical procedure and risks associated with the intervention, both of which were discussed with the patient. These risks include but are not limited to the following: * Experiencing same, different or even worse symptoms in back, neck, arms, or legs compared to before surgery. Requiring further surgery or other forms of treatment presently or at some time in the future at same or other levels of the intended spine surgery. On an extreme but fortunately relatively rare basis severe complication such as blindness, stroke, heart attack, temporary and/or permanent nerve injury, paralysis, coma, or may occur, sometimes without known explanation. Surgical complications may include but are not limited to risk of infection, fluid accumulation in the surgical dissection site, including a seroma or hematoma, that requires additional surgery, wound drainage, bleeding, new numbness or weakness, vision changes/loss, spinal fluid leakage, non-healing and/or infected incision, headaches, difficulty or inability to swallow, hoarseness, hemopneumothorax, pneumothorax, impotence, retrograde ejaculation, vaginal dryness; injury to nerves, spinal cord, blood vessels, lymphatics or other vital organs (i.e., bowel injury, injury to the great vessels); heterotopic bone formation; complications related to the hardware such as screws, rods, cages including misplaced hardware, device failure, instrumentation at the wrong spine level, hardware fracture/breakage, or hardware loosening; vertebral failure of the spinal column above or below the newly placed hardware; retained surgical instrumentations or devices and the ne ed for further surgery. * Medical risks of the planned spine surgery include but are not limited to generalized Infections to the whole body or local areas outside of the surgical site (sepsis), heart attack, bleeding, anaphylaxis, meningitis, seizure, epilepsy, hearing loss, burn galaviz, laceration of the head or other areas of the body, bruising, hypersensitivity of the skin, bladder over distension; allergic reaction; shoulder injury related to positioning; fat, blood and air clots to other areas of the body like heart, lungs, brain; failure of internal organs such as lungs, kidneys, liver and excessive bleeding. If blood transfusions are necessary, note that transfusions may cause intolerance reactions such as anaphylaxis or other complex reactions. Despite best efforts, the results of spine surgery might not heal in terms of bone, soft tissues such as skin, fascia, ligaments, and joints. Additionally, in order to achieve best possible results, spine surgery may be carried out beyond the initially planned levels and involve decompression, fusion including insertion of hardware at levels other than the original intended area of surgical interest change some portions of the procedure in order to ensure the best possible outcomes. With spine surgery and spinal fusion, there are different off label uses of instrumentation (devices, implants and hardware) as well as biological substances (bone morphogenic proteins, demineralized bone matrix) as well as using extra bone from allograft sources (i.e. cadaver bone) or autograft (iliac crest bone, ribs, or the spine itself). The patient has been given information about these practices and their inherent risks and benefits. [facility] is an educational center that serves as a training facility for neurosurgical and orthopedic POLYMERIZATION ENGINEER and Nursing students. Physician assistants are medically trained surgical providers who function in the outpatient, inpatient, and operating room setting under the direct supervision of the attending surgeon. [facility] has multiple operating rooms with single and overlapping rooms running daily. They currently function under the required guidelines as produced by the [facility] Finance Committee with regards to the overlapping rooms and will continue to comply with changes to this policy as they occur. The requirements include and are complied with as follows: (1) the critical portions of the overlapping rooms will not occur at the same time, (2) the attending physician will be physically present during the critical portions of the procedure and immediately available during the entire case, and (3) a back-up attending is designated should the primary attending not be immediately available. The patient has had a chance to review all the listed information, has been given print outs detailing this information, and has had all his/her questions answered to their satisfaction. It was my pleasure to have seen and examined Ms. Luis. In our visit today we have had a chance to go over my understanding of our patient's current condition, the natural course history without intervention and various interventional options. Questions were invited and answered, and the patient wishes to proceed as outlined above. I have seen and examined the patient for 25 minutes and we have spent more than 50% of the time in repeat and detailed counseling about the patient's condition, its natural course history with out and as much as can be predicted with surgery and re-review of various surgical treatment options. In conclusion, Ms. Luis requested we proceed with the above suggested surgery and are willing to accept risks and limitations of the suggested surgery as nature of the disease process and our best attempts at treatment for the condition. Thank you again for allowing us to be part of your patient's care. Please don't hesitate to contact me if you have any further questions. Follow-up: Post procedure Patient Education: (Informational booklet, instructions, etc) given at today's appointment: Yes .ED:Patient Education: Y Medications Reviewed: YES In our visit today Ms. Luis and I have had a chance to go over my understandi ng of the patient's current condition, the natural course history without intervention and various interventional options. Questions were invited and answered, and the patient wishes to proceed as outlined above. I will be sure to keep you updated afterMs. Luis returns here for further follow-up. Thank you again for your referral. Please do not hesitate to contact me if you have any further questions. Signed and authenticated by: Caleb Hagen [facility] [address] [place] [id number] This message is confidential, intended only for the named recipient(s) and may contain information that is privileged or exempt from disclosure under applicable law. If you are not the intended recipient(s), you are notified that the dissemination, 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 or copying of this information is strictly prohi bited. If you received this message in error, please notify the sender then delete this message. Patient verbalizes understanding of the information discussed. The above note was initiated by Rita Snell, physician recording therapeutic recreation assistant for Dr. Caleb Cosme. This note has been reviewed by Dr. Cosme, who has made his personal changes and impressions for this document. CC: Ramana Xie M.D. Past Medical History Past Medical History: GERD/Reflux, Hyperlipidemia, Musculoskeletal Disorder, Osteoarthritis (OA), Thyroid Disorder Additional Past Medical History / Comment(s): Bladder Cystitis, chronic low back pain, Spinal Stenosis. History of Any Multi-Drug Resistant Organisms: None Reported Past Surgical History: Bladder Surgery, Hysterectomy, Orthopedic Surgery, Tonsillectomy Additional Past Surgical History / Comment(s): Bilateral hip replacements, thyroidectomy for multiple nodules, toe surgery, bladder procedure, Pain Clinic Procedures. Past Anesthesia/Blood Transfusion Reactions: No Reported Reaction Smoking Status: Former smoker, Vaper - Past Family History Mother Family Medical History: Coronary Artery Disease (CAD) Additional Family Medical History / Comment(s): from heart problems. Medications and Allergies Home Medications Medication Instructions Recorded Confirmed Type Ferrous Sulfate [Slow Fe] 142 mg PO MO 03/12/20 12/21/22 History Levothyroxine Sodium 125 mcg PO HS 03/12/20 12/21/22 History Pentosan Polysulfate Sodium 100 mg PO TID 03/12/20 12/21/22 History [Elmiron] Diclofenac Submicronized 5 mg PO DAILY 03/12/22 12/21/22 History [Diclofenac] ALPRAZolam [Xanax] 0.5 mg PO DAILY PRN 12/21/22 12/21/22 History Itzel(Unk) 2 tab PO DAILY 12/21/22 12/21/22 History Ergocalciferol [Vitamin D2 (1250 1 tab PO MO 12/21/22 12/21/22 History Mcg = 58303 Iu)] HYDROcodone/APAP 5-325MG [[place] 1 tab PO DAILY PRN 12/21/22 12/21/22 History 5-325] Allergies Allergy/AdvReac Type Severity Reaction Status Date / Time No Known Allergies Allergy Verified 12/21/22 11:41 Physical Examination Osteopathic Statement: *. No significant issues noted on an osteopathic structural exam other than those noted in the History and Physical/Consult.
[~2022-12-27 07:30] MED LIST changes: +ACETAMINOPHEN TAB 500 MG TAB PO PRN; +GABAPENTIN 300 MG CAP PO PRN; +HYDROmorphone 0.5 MG/0.5 ML SYRINGE IVP PRN; -LACTATED RINGERS 1,000 ML IV SCH; -LIDOCAINE 1% (10MG/ML) FOR IV START INTRADERMA PRN; +MIDAZOLAM 2 MG/2 ML VIAL IV PRN; +TRANEXAMIC 1,000 MG/100ML-NACL 1,000 MG in SALINE 1 100ML.BAG IVPB PRN
[2022-12-27 08:36] LABS: Basophils % (A) 0 %; Eosinophils # (A) 0.1 k/uL (0-0.7); Eosinophils % (A) 1 %; HCT 44.4 % (34.0-46.0); HGB 14.7 gm/dL (11.4-16.0); Lymphocytes % (A) 17 %; MCH 32.3 pg (25.0-35.0); MCHC 33.1 g/dL (31.0-37.0); MCV 97.8 fL (80.0-100.0); Monocytes # (A) 0.4 k/uL (0-1.0); Monocytes % (A) 6 %; Neutrophils # (A) 4.1 k/uL (1.3-7.7); Neutrophils % (A) 73 %; Platelet Count 207 k/uL (150-450); RBC 4.54 m/uL (3.80-5.40); RDW 12.5 % (11.5-15.5); WBC 5.7 k/uL (3.8-10.6)
[2022-12-27] MEDS ORDERED: LACTATED RINGERS 1,000 ML IV ONE ×4 (08:36→18:11)
[2022-12-27] MEDS: LACTATED RINGERS 1,000 ML IV SCH (08:36)
[2022-12-27] MEDS: ONDANSETRON 4 MG/2 ML VIAL IVP PRN ×2 (08:51→17:16)
[2022-12-27 08:58] LABS: African American GFR (CKD) >90 (>60 ml/min/1.73 sqM); Anion Gap 11 mmol/L; Blood Urea Nitrogen 12 mg/dL (7-17); Carbon Dioxide 23 mmol/L (22-30); Chloride 106 mmol/L (98-107); Glucose 103 mg/dL (74-99); Non-African American GFR(CKD) >90 (>60 ml/min/1.73 sqM); Potassium 4.4 mmol/L (3.5-5.1); Sodium 140 mmol/L (137-145)
[2022-12-27] MEDS ORDERED: MIDAZOLAM 2 MG/2 ML VIAL IVP ONE ×2 (09:01→09:07)
[2022-12-27] MEDS ORDERED: MIDAZOLAM 2 MG/2 ML VIAL ONE (09:29)
[2022-12-27] MEDS ORDERED: FUROSEMIDE 10 MG/ML 2 ML VIAL ONE (09:29)
[2022-12-27] MEDS ORDERED: ONDANSETRON 4 MG/2 ML VIAL ONE (09:29)
[2022-12-27] MEDS ORDERED: HYDROmorphone (PF) 1 MG/ML ONE (09:29)
[2022-12-27] MEDS ORDERED: NEOSTIGMINE 1 MG/ML 10 ML VIAL ONE (09:29)
[2022-12-27] MEDS ORDERED: LIDOCAINE 1% INJ 10MG/ML (20 ML MDV) ONE (09:29)
[2022-12-27] MEDS ORDERED: GLYCOPYRROLATE 0.2 MG/ML 2 ML VIAL ONE (09:29)
[2022-12-27] MEDS ORDERED: PROPOFOL 10 MG/ML 20 ML VIAL IV ONE (09:29)
[2022-12-27] MEDS ORDERED: fentaNYL (PF) 50 MCG/ML 2 ML AMP ONE (09:29)
[2022-12-27] MEDS ORDERED: TRANEXAMIC 1,000 MG/100ML-NACL PREMIX BAG ONE (09:29)
[2022-12-27] MEDS ORDERED: SUCCINYLCHOLINE CHLORIDE 200 MG/10 ML VIAL IV ONE (09:29)
[2022-12-27] MEDS ORDERED: KETAMINE HCL IN 0.9 % NACL 50 MG/5 ML SYRINGE ONE (09:29)
[2022-12-27] MEDS ORDERED: PHENYLEPHRINE-0.9% NACL SYG 1,000 MCG/10 ML SYRINGE ONE (09:29)
[2022-12-27] MEDS ORDERED: ROCURONIUM 10 MG/ML (5 ML VIAL) IV ONE (09:29)
[2022-12-27] MEDS ORDERED: ALBUMIN HUMAN 5% (12.5gm) 250 ML BOTTLE IVPB ONE (09:29)
[2022-12-27] MEDS ORDERED: THROMBIN (BOVINE) 5,000 UNIT VIAL TOPICAL ONE ×3 (10:28)
[2022-12-27] MEDS ORDERED: GELATIN SPONGE,ABSORB (LARGE) 1 EACH SPONGE TOPICAL ONE (10:28)
[2022-12-27] MEDS ORDERED: GENTAMICIN 80 MG in SODIUM CHLORIDE 0.9% IRRIGATIO 3,000 ML IRRIGATION ONE (10:28)
[2022-12-27] MEDS ORDERED: ceFAZolin 3,000 MG in SODIUM CHLORIDE 0.9% IRRIGATIO 3,000 ML IRRIGATION ONE (10:29)
--- NOTE | 2022-12-27 11:19 | P.ANPRN ---
Procedure Note - Anesthesia - Invasive Line Right Arterial Line Time Out Performed: Yes (900) Date of Procedure: 12/27/22 Time of Procedure: 09:01 Location of Patient: PreOp Preparation: Sterile Prep, Sterile Dressing Arterial Line Location: Radial (right) Ultrasound Used: Yes Purpose - Visualization and Identification of Vasculature: Yes Needle Guage: 20g Image Stored and Saved: Yes Narrative: Central line placement per sterile protocol utilized.
[2022-12-27] MEDS ORDERED: TRANEXAMIC 1,000 MG/100ML-NACL 1,000 MG in SALINE 1 100ML.BAG IVPB STA (13:45)
[2022-12-27] MEDS ORDERED: VANCOMYCIN 1,000 MG VIAL MISCELLANE ONE (15:09)
[2022-12-27 15:59] LABS: VBG PH 7.37 (7.31-7.41)
--- NOTE | 2022-12-27 16:13 | XR ---
Intraoperative/procedural fluoroscopic services were provided for posterior lumbar disc fusion. Total fluoroscopy time is 1.58 minutes with a total of 15 submitted images to PACS. Total DAP 28.452 Gycm2 . Please see the operative note for further details.
[2022-12-27] MEDS ORDERED: SENNOSIDES-DOCUSATE SODIUM 1 EACH TAB PO PRN (16:51)
[2022-12-27] MEDS ORDERED: HYDROcodone/APAP 5-325MG 1 EACH TAB PO PRN (16:51)
[2022-12-27] MEDS ORDERED: MAGNESIUM HYDROXIDE 2,400 MG/30 ML CUP PO PRN (16:51)
[2022-12-27] MEDS ORDERED: TRANEXAMIC 1,000 MG/100ML-NACL 1,000 MG in SALINE 1 100ML.BAG IVPB ONE (20:00)
[2022-12-27] MEDS: HYDROmorphone 1 MG/ML 1 ML SYRINGE IVP PRN ×2 (20:04→23:33)
[2022-12-27] MEDS: GABAPENTIN 300 MG CAP PO SCH (20:05)
[2022-12-27] MEDS: ACETAMINOPHEN TAB 325 MG TAB PO SCH (20:05)
[2022-12-28] MEDS ORDERED: SODIUM CHLORIDE 0.9% 1,000 ML IV ONE ×2 (00:41→13:09)
[2022-12-28] MEDS: CYCLOBENZAPRINE 5 MG TAB PO PRN (01:04)
[2022-12-28] MEDS: ACETAMINOPHEN TAB 325 MG TAB PO SCH ×4 (01:04→16:16)
--- NOTE | 2022-12-28 01:18 | P.CNPUL ---
History of Present Illness Consult date: 12/28/22 Requesting physician: Caleb Cosme Reason for consult: other (ICU management) Chief complaint: Back pain and bilateral lower extremity weakness History of present illness: I am seeing this patient in new consultation today 12/28/2022 in the intensive care unit postoperative day #1 following a T10 to pelvis decompression and fusion. Patient is a 72-year-old white female with past medical history significant for chronic lower back pain, cystitis, hyperlipidemia, hypothyroidism. Patient has been having symptoms of chronic lower back pain that radiates down her bilateral lower legs over the last couple years. This is accompanied with bilateral lower extremity weakness and numbness. She also complained of some intermittent urinary incontinence, however, has a history of chronic cystitis. Patient underwent an elective T10 to pelvis decompression and fusion yesterday. There were no immediate perioperative complications reported. Patient did have an EBL of approximately 1.5 L. She did receive 1 unit PRBC intraoperatively. She also received some TXA. Patient extubated in recovery, and was transferred to the intensive care unit. Patient is currently lying supine in bed, on 2 L/m nasal cannula, in no acute distress. She is reporting some postsurgical incisional pain. She is able to move bilateral lower extremities, strength 5 out of 5. Neurovascular status appears intact. There are 2 Hemovacs with minimal sanguinous output. Most recent preoperative CBC shows a WBC count of 5.7, hemoglobin 14.7, hematocrit 44.4, platelets 207. Preoperative BMP was unremarkable. Lactate Ringer's is infusing at 20 ML's per hour. There is an indwelling urinary catheter, urine output is marginal. Blood pressure is borderline hypotensive. No vasopressors have been needed so far. Follow-up lumbar CT is pending. Patient will be monitored in the intensive care unit at least overnight. Review of Systems REVIEW OF SYSTEMS: CONSTITUTIONAL: Denies any recent significant weight loss or weight gain. EYES: Denies change in vision. EARS, NOSE, MOUTH, THROAT: Denies headaches, denies sore throat. CARDIOVASCULAR: Denies chest pain, palpitations or syncopal episodes. RESPIRATORY: Denies shortness of breath, cough, congestion or hemoptysis. GASTROINTESTINAL: Denies change in appetite, abdominal pain, nausea and vomiting, or diarrhea GENITOURINARY: Denies hematuria, denies infections. MUSKULOSKELETAL: Denies pain, denies swelling. Admits some postsurgical incisional lumbar pain. INTEGUMENTARY: Denies rash, denies eczema. NEUROLOGICAL: Denies recent memory loss, no recent seizure activity. PSYCHIATRIC: Denies anxiety, denies depression. HEMATOLOGIC/LYMPHATIC: Denies anemia, denies enlarged lymph node Past Medical History Past Medical History: GERD/Reflux, Hyperlipidemia, Musculoskeletal Disorder, Osteoarthritis (OA), Thyroid Disorder Additional Past Medical History / Comment(s): Bladder Cystitis, chronic low back pain, Spinal Stenosis. History of Any Multi-Drug Resistant Organisms: None Reported Past Surgical History: Bladder Surgery, Hysterectomy, Orthopedic Surgery, Tonsillectomy Additional Past Surgical History / Comment(s): Bilateral hip replacements, thyroidectomy for multiple nodules, toe surgery, bladder procedure, Pain Clinic Procedures. Past Anesthesia/Blood Transfusion Reactions: No Reported Reaction Smoking Status: Former smoker, Vaper - Past Family History Mother Family Medical History: Coronary Artery Disease (CAD) Additional Family Medical History / Comment(s): from heart problems. Medications and Allergies Home Medications Medication Instructions Recorded Confirmed Type Ferrous Sulfate [Slow Fe] 142 mg PO MO 03/12/20 12/21/22 History Levothyroxine Sodium 125 mcg PO HS 03/12/20 12/21/22 History Pentosan Polysulfate Sodium 100 mg PO TID 03/12/20 12/21/22 History [Elmiron] ALPRAZolam [Xanax] 0.5 mg PO DAILY PRN 12/21/22 12/21/22 History Itzel(Unk) 2 tab PO DAILY 12/21/22 12/27/22 History Ergocalciferol [Vitamin D2 (1250 1 tab PO MO 12/21/22 12/21/22 History Mcg = 92757 Iu)] HYDROcodone/APAP 5-325MG [[place] 1 tab PO DAILY PRN 12/21/22 12/21/22 History 5-325] Allergies Allergy/AdvReac Type Severity Reaction Status Date / Time No Known Allergies Allergy Verified 12/27/22 07:45 Physical Exam Vitals: Vital Signs Temp Pulse Pulse Pulse Resp BP BP 12/27/22 23:00 98 14 96/70 12/27/22 22:00 97.9 F 98 11 L 103/66 12/27/22 21:00 93 11 L 104/57 12/27/22 20:00 97.4 F L 114 H 16 105/82 12/27/22 18:15 101 H 16 12/27/22 18:00 102 H 16 12/27/22 17:45 98 16 12/27/22 17:30 92 16 12/27/22 17:15 100 16 12/27/22 17:00 102 H 18 12/27/22 16:55 97.5 F L 105 H 18 12/27/22 08:01 98.0 F 107 H 20 143/89 BP BP Pulse Ox 12/27/22 23:00 100 12/27/22 22:00 99 12/27/22 21:00 100 12/27/22 20:00 12/27/22 18:15 131/58 143/66 100 12/27/22 18:00 134/63 144/69 100 12/27/22 17:45 118/58 145/69 100 12/27/22 17:30 126/66 143/68 100 12/27/22 17:15 132/72 139/69 98 12/27/22 17:00 131/69 133/66 100 12/27/22 16:55 140/69 131/69 100 12/27/22 08:01 98 Intake and Output 12/27/22 12/27/22 12/28/22 14:59 22:59 06:59 Intake Total 3862 719 23 Output Total 2200 95 15 Balance 1662 624 8 Intake: IV 3552 719 23 A Line 9 3 Lactated Ringers 1,000 ml 60 20 @ 20 mls/hr IV .Q24H [facility] Rx#:[id number] Tranexamic 1,000 mg/100Ml 100 -NaCl 1,000 mg In Saline 1 100ml.bag @ 200 mls/hr IVPB ONCE ONE Rx#: [id number] ceFAZolin 2 gm In Sodium 100 Chloride 0.9% 50 ml @ 100 mls/hr IVPB Q8H [facility] Rx#: [id number] Blood Product 310 Rc As-1 Unit 310 [id number] Other 0 Rc As-1 Unit 0 [id number] Output: Urine 700 95 15 Estimated Blood Loss 1500 Other: Voiding Method Indwelling Catheter Weight 86.7 kg GENERAL EXAM: Alert, 72-year-old white female appearing stated age, comfortable in no apparent distress. HEAD: Normocephalic and atraumatic EYES: Normal reaction of pupils, equal size. NOSE: Clear with pink turbinates. THROAT: No erythema or exudates. NECK: No masses, no JVD. CHEST: No chest wall deformity. LUNGS: Equal air entry with no crackles, wheeze, rhonchi or dullness. On 2 L/m nasal cannula. No conversational dyspnea or accessory muscle use.. CVS: S1 and S2 normal with no audible murmur, regular rhythm. No extra heart sounds ABDOMEN: No hepatosplenomegaly, active bowel sounds, no guarding or rigidity. There is a nonreducible abdominal hernia. SPINE: No scoliosis or deformity Post surgical incisional dressing is clean, dry, and intact. SKIN: No rashes CENTRAL NERVOUS SYSTEM: No focal deficits, tone is normal in all 4 extremities. Bilateral lower extremity strength 5/5. Sensation intact. EXTREMITIES: There is no peripheral edema, clubbing, or cyanosis. Peripheral pulses are intact. Results - Laboratory Findings CBC and BMP: 12/28/22 06:00 12/28/22 06:00 Abnormal lab findings: Abnormal Labs 12/16/22 12/27/22 12/27/22 09:47 08:20 12:00 VBG HCO3 21 L Glucose 103 H Crossmatch See Detail Assessment and Plan Assessment: Postoperative day #1 following a T10 to pelvis decompression and fusion. No immediate perioperative complications reported. Moderate to severe thoracic-lumbar spondylosis with stenosis Postoperative hypotension, possibly related to acute blood loss, patient is post transfusion 1 unit PRBC. Hypothyroidism History of hyperlipidemia Plan: Patient was successfully extubated in recovery, and is being monitored in the intensive care unit. Currently on 2 L/m nasal cannula, SpO2 is 100%, this can likely be weaned down Recheck CBC, patient is status post 1 unit PRBC transfusion Give 1 L normal saline bolus for hypotension, no need for vasopressors at this point Follow up postoperative lumbar CT is pending SCDs are on. DVT prophylaxis per surgery Postoperative pain seems to be well managed with current analgesics We will continue to follow while the patient is in the intensive care unit I have personally seen and examined the patient, performed the documentation and the assessment and plan as written. Number of minutes spent on the visit:20 This is a joint evaluation that was done along with the nurse practitioner. The patient was seen in the intensive care unit. The patient was brought into the ICU for longer spine surgery for monitoring as the patient was having some issues with hypotension. She received a total of 1.5 L of lactated Ringer overnight. She also received 1 unit of packed RBC intraoperatively. Hemoglobin this morning is at 8. Most recent BP is 1 9/66 and the urine output is adequate. BUN is at 60 with a creatinine of 0.7 and sodium levels of 134. The patient has a Hemovac drain 2 and her back. Output is being monitored. Otherwise, no signs of any respiratory distress. She is on 2 L of oxygen by nasal cannula. She will be transitioned to room air oxygen. Lumbar spine CAT scan of the spine was done last night and is also still pending. Awaiting further recommendations from spine surgery. Overall hemodynamic condition is stable. Time with Patient: Greater than 30
[2022-12-28 01:45] LABS: HCT 27.9 % (34.0-46.0); MCH 32.5 pg (25.0-35.0); MCHC 33.2 g/dL (31.0-37.0); MCV 97.6 fL (80.0-100.0); Platelet Count 184 k/uL (150-450); RBC 2.86 m/uL (3.80-5.40); RDW 13.5 % (11.5-15.5); WBC 14.7 k/uL (3.8-10.6)
[2022-12-28 02:16] LABS: HGB 9.3 gm/dL (11.4-16.0)
[2022-12-28] MEDS: HYDROmorphone 1 MG/ML 1 ML SYRINGE IVP PRN ×3 (02:47→10:18)
[2022-12-28] MEDS ORDERED: SODIUM CHLORIDE 0.9% 500 ML 500 ML IV ONE (04:16)
[2022-12-28 05:44] LABS: Basophils % (A) 0 %; Eosinophils % (A) 0 %; HCT 23.2 % (34.0-46.0); Lymphocytes # (A) 0.7 k/uL (1.0-4.8); Lymphocytes % (A) 7 %; MCH 33.8 pg (25.0-35.0); MCHC 34.6 g/dL (31.0-37.0); MCV 97.8 fL (80.0-100.0); Mean Platelet Volume 8.7; Monocytes # (A) 0.6 k/uL (0-1.0); Monocytes % (A) 6 %; Neutrophils # (A) 8.6 k/uL (1.3-7.7); Neutrophils % (A) 84 %; Platelet Count 142 k/uL (150-450); RBC 2.38 m/uL (3.80-5.40); RDW 13.8 % (11.5-15.5); WBC 10.2 k/uL (3.8-10.6)
[2022-12-28 05:49] LABS: African American GFR (CKD) >90 (>60 ml/min/1.73 sqM); Anion Gap 3 mmol/L; Blood Urea Nitrogen 16 mg/dL (7-17); Calcium 6.7 mg/dL (8.4-10.2); Carbon Dioxide 22 mmol/L (22-30); Chloride 109 mmol/L (98-107); Glucose 113 mg/dL (74-99); Non-African American GFR(CKD) 81 (>60 ml/min/1.73 sqM); Potassium 4.9 mmol/L (3.5-5.1); Sodium 134 mmol/L (137-145)
[2022-12-28] MEDS: LACTATED RINGERS 1,000 ML IV SCH (05:55)
[2022-12-28] MEDS: HYDROcodone/APAP 10-325MG 1 EACH TAB PO PRN ×2 (08:18→19:32)
[2022-12-28] MEDS: GABAPENTIN 300 MG CAP PO SCH ×3 (08:19→21:57)
--- NOTE | 2022-12-28 09:28 | P.OP ---
Date of Procedure: 12/27/22 Preoperative Diagnosis: 1. T12-S1 STENOSIS, SEVERE WITH SEVERE SPONDYLOSIS 2. LUMBAR DEGENERATIVE SCOLIOSIS 3. NEUROGENIC CLAUDICATION 4. LOW BACK PAIN 5. UI, BI RECENT Postoperative Diagnosis: 1. T12-S1 STENOSIS, SEVERE WITH SEVERE SPONDYLOSIS 2. LUMBAR DEGENERATIVE SCOLIOSIS 3. NEUROGENIC CLAUDICATION 4. LOW BACK PAIN 5. UI, BI RECENT Procedure(s) Performed: 1. L3-4, L4-5, L5-S1 INTRADISCAL OSTEOTOMY, 3 COLUMN, FOR DEFORMITY CORRECTION (70962, [id number]) 2. L2-3, L3-4, L4-5, L5-S1 POSTERIOLATERAL AND INTERBODY FUSION (91827, 89987F3) 3. T10-L1 POSTERIOLATERAL INSTRUMENTED FUSION (06177, 73506C5) 4. SEGMENTAL INSTRUMENTATION [id number] (14460) 5. T12-S1 BILATERAL LAMINECTOMY, T12-L1 PARTIAL MEDIAL FACETECTOMY AND FORAMINOTOMY(10287, 15708V9) L2-S1 BILATERAL COMPLETE FACETECTOMY, FORAMINOTOMY FOR DECOMPRESSION PURPOSES (03119, 59116R3) 6. ATTACHMENT OF THE CAUDAL END OF THE LARGE CONSTRUCT TO PELVIS (10792) 7. INSERTION OF BIOMECHANICAL DEVICES L2-3, L3-4, L4-5, L5-S1X2 (00125P7) 8. USE OF [employer] NAVIGATION FOR THE PLACEMENT OF SCREWS (57488) USE OF IONM ALL SCREWS TESTING > 20mA Anesthesia: LAILA Surgeon: Caleb Cosme Drainage Inspector #1: Tank Guillen (MAGDALENA Busch Was present and assisted with all aspects of the case from positioning to dressing placement) Estimated Blood Loss (ml): 1,500 IV fluids (ml): 3,500 Urine output (ml): 550 Pathology: none sent Condition: stable Disposition: PACU Indications for Procedure: Ms. Luis is presenting for evaluation of low back pain. It was my pleasure to have seen and examined Ms. Luis. In our visit today we have had a chance to go over subjective complaints, physical examination findings and treatments including the natural course history without intervention and various interventional options. The patients imaging demonstrates: Xray Lumbar spine taken at [facility] on 03/10/22 re-reviewed today: - Reviewed in office with patient today. These demonstrate lumbar degenerative scoliosis with a coronal imbalance and levoscoliosis of around 22 degrees and a fractional curve at L5-S1 of 15 degrees. There is lateral collapse and lateral listhesis associated at L4-5 and L3-4 causing most of the deformity. No acute fracture. LL is flattened to around 30 deg with PI around 55 deg. There are no fractures noted. No lesions. noted. AP pelvis shows post ESTUARDO changes without evidence of complicating process. [facility] of LumbarSpine: - Reviewed in office with patient today. This is reviewed and demonstrates again severe degenerative lumbar scoliosis with spondylosis from T10-S1 with disc collapse, osteophytic changes, ligamental hypertrophy and facet hypertrophy. These contribute to severe stenosis at L1-S1 with collapse of the normal LL due to disc height collapse as well.This causing foraminal stenosis at these levels as well that is severe. No fracture noted. NO lesions noted. Severe coronal and sagittal deformity accompany this overall picture. On physical exam, Ms. Luis demonstrates: worsening lumbar pain that radiates down into the bilateral lower extremities. The patient states that her lower extremity pain is associated with numbness and tingling. The patient states recurrent bladder incontinence. The patient recently experienced an incident of bowel incontinence as well. Te patient notes that her low back and lower extremity symptoms are exacerbated by all activities. The patient states that her symptoms have become debilitating and are significantly affecting her overall quality of life. I have explained to the patient that as their condition progresses it will cause further neurological deficits and eventual paralysis. Based on the patients imaging, physical exam, and the rapid progression and disabling nature of their symptoms, at this time I recommend surgery in the form of a: T10 - pelvis decompression and fusion. I discussed the risk and benefits of this procedure at length with Ms. Luis. The patient agreed to considered pursuing the procedure above mentioned . Prior to surgery, she should follow up with her PCP (Cardio, ID, IM etc) for clearance. Questions were invited and answered, and the patient wishes to proceed as outlined below. Currently, I am recommendin.Thoracic 10 - pelvis decompression and fusion Description of Procedure: M41-[id number] Decompression and fusion DEL The patient was seen and examined in the preoperative area. All preoperative protocols were followed. Informed consent was obtained, risks and benefits of the procedure were discussed at length. Risks including bleeding infection damage to the surrounding tissue and risk of re-operation were discussed with the patient. Risk of anesthesia up to and including was discussed with the patient. These are outlined in the risk review. They were willing to accept these risks and all the risks of surgery. The patient was given a weight-based dose of antibiotics in the form of 3 g Ancef. The patient was seen and evaluated by the anesthesia team who deemed them fit for surgery. The site was marked, the patient was willing to proceed with the procedure. The patient was transferred to the operative suite by the Department of anesthesia. They were then drifted off to sleep by the department anesthesia and GETA was performed. The patient tolerated this well. Reilly catheter was placed by nursing staff, a-traumatically. Once confirmation of lines and ventilation the patient was transferred to a prone Trios spine table very carefully. The head was secured and stable. Xray confirmed alignment. All bony prominences including wrists, elbows, axilla, chest, hips, and thighs, and feet were padded very well. Special attention was paid to the genitalia, and these were padded accordingly. SCDs were placed on bilateral lower extremities and were connected. Arms were well padded and placed at 90/90 up and out and well padded. Safety strap and tape placed on the patient. Once in position, again we confirmed good ventilation capabilities and that lines were running appropriately. The patients lumbosacral pelvic was then exposed. Hair was removed for incision. 1010s were placed outlining the incision site. Standard alcohol was used to clean the incision site and allowed to dry. C-arm was used to bio-ellie the patient and confirm level for incision which was marked with a skin marker. Operative briefing was performed with all teams and everyone in agreement to proceed. The patient was then prepped and draped in a normal sterile fashion. Timeout was then performed, and all parties agreed with the procedure to be performed. Midline skin incision was then made over the previously bookmarked area and dissection taken down to the lumbosacral fascia which was identified and cleaned with a soares. Once midline was identified, fasciotomy was made over the SP of [id number]. Subperiosteal dissection was then taken down over the lamina and facet joints and TPs were exposed and trough made posterolateral. TPs were then decorticated L1-S1 and sacral ala with a high speed krystal for lateral fusion. Dissection was taken out over the sacrum to the pelvis. SI joint identified and modified [place] starting point for pelvic screws identified as well. Retracto rs placed. Wound was irrigated and lateral image with penfield 4 placed at the pars of L4 confirmed levels for operation. SP clamp was then placed for the [employer] navigation tracker and secured at L2 for the first set of screws. The wound was then filled with NSS and Z-drape placed. A 3D Zhiem spin was then obtained and registered. Once confirmation of accuracy screws were then placed from T10-L2 using navigation. Navigated high speed krystal was used to make a yard pilot hole followed by a navigated awl-tap passed through the pedicle into the body. A ball tip probe then confirmed within the pedicle. Globus Screws then measured and placed using a navigated screwdriver. After screws were placed from T10-L2 the tracker was replaced at S1 and a second 3D Zhiem spin was then obtained and registered. Once confirmation of accuracy screws were then placed from L3-Pelvis using navigation. AP image confirmed safe placement of screws. Lateral images as well as navigation were then used to place bilateral pelvic screws. Starting point selected just lateral to the SI joint and S2 pseudo facet. Lateral image taken and krystal used to make the yard pilot hole. Gearshift then used to pass into the pelvis under lateral imaging just above the sciatic notch. 30 deg/30deg iliac oblique then taken to confirm within the teardrop and ball tip probe used to probe good bone. Screw was then measured and selected and placed under lateral imaging. This was repeated on the contralateral side. Screws were then visualized and were safe. A second Zheim spin was obtained and confirmed safe screw placement. Screws on the left hand side at T10, T12 and L1 had to be replaced due to del issues. This was done freehand and with Xray which then confirmed safe placement of screws. Screws were then tested, and reliably tested screws tested above 20 mA. The wound was irrigated and attention was turned to decompression, correction and interbody fusion. Starting at L5-S1, bilateral laminectomy, complete facetectomy and foraminotomies were performed using high speed bur, Kerrison rongure. There was exuberant bone formation, osteophytes and scar tissue surrounding these joints as well as the dura. Once exposed the neural elements were protected and an intradiscal osteotomy, 3 column, was performed for deformity correction at L5- S1. Osteotome was used to make osteotomy in L5 and S1 and for complete disc removal. A box osteotome was then used to widen this bilaterally. This was passed into the anterior 1/3 of L5. This allowed for loosening of this level and correction. Cage was then selected based on shaving and trials. Bleeding endplates were encountered and cartilage removed. Autograft, allograft were then placed anterior to the cage. The cage was then impacted into place under lateral imaging while protecting neural elements. The cage was then expanded into position and showed good lift and correction. Voodoo of lordosis and height achieved. Meticulous hemostasis then performed. Cage was backfilled with DBM and the area irrigated. We then proceeded to L4-5. At L4-5, bilateral laminectomy, complete facetectomy and foraminotomy was performed as described above. Again, exuberant scar tissue and bone formation was encountered and at this level specifically around the pars due to the defect and slip in this area. There was also a large disc osteophyte complex that was identified once disc space was found. The dura was carefully dissected off this anteriorly and b/l. Once encountered, the disc space was then accessed in a similar fashion and neural elements protected. Intradiscal, 3 column osteotomies, for deformity correction was then performed again at this level as described above. Once completed and complete discectomy performed there was good mobility at this level. Cage was then sized and selected. Autograft and allograft was then placed anterior in the disc space and the cage was then inserted and impacted into place under lateral. AP image, as before, was taken to ensure midline placement. The cage was then expanded into position. The wound was irrigated. Meticulous hemostasis then performed, and attention turned to L3-4. At L3-4 again bilateral laminectomy, complete facetectomy and foraminotomy were performed along with intradiscal 3 column osteotomy for deformity correction. This was her worst level of deformity and differential cage placement was use as well to help with correction. The neural elements were less scared at this level; however, it was very unstable. The elements were then protected, and disc space accessed. Sequential shaving performed until desired height and lordosis. Cage selected, and graft placed anterior to the cage within the disc space. Cage was then placed under lateral image, expanded and had good height, lordosis and deformity correction. The wound was irrigated, and meticulous hemostasis performed once again. We then proceeded to L2-3 level. At L2-3 again bilateral laminectomy, complete facetectomy and foraminotomy were performed. Neural elements were mobilized and then protected, and disc space accessed. Sequential shaving performed until desired height and lordosis. Cage selected, and graft placed anterior to the cage within the disc space. Cage was then placed under lateral image, expanded and had good height, lordosis and deformity correction. The wound was irrigated, and meticulous hemostasis performed once again. Decompression was extended then up to T12 due to the stenosis in this area with high speed krystal and kerrison rongure. Bilateral laminectomy, partial medial facetectomy and foraminotomy performed to accomplish good wide decompression. AP imaging confirmed good placement of all cages and good reduction and coronal balance restored. Screws all in good position. Attention was then drawn to hemal placement and further reduction. Rods were selected, measured, cut and bent to appropriate lordosis. They were then secured into pelvic screws b/l. Sequential reduction then done into each screw and set screw placed. Set screws were then final tightened and lateral image showed good lordosis reduction with increase around 15-20 deg from starting. Once rods were secured, cross links were selected and placed and final tightened. The wound was then irrigated with 3L Ancef irrigation, 3L gentamicin irrigation and 3L NSS. Surgicel was then placed on the dura, which was inspected and had no injury. Then, in the posterolateral gutter was placed, MagnatOs, Autograft and allograft. This was impacted into position and surgical placed over it. 2g Vanco powder was then placed deep in the wound. Two deep, subfascial drains were placed and secured with a stitch. We then proceeded with layered closure. #1 PDS placed in the deep fascia followed by a running unidirectional 0 stratafix. 0 Vicryl placed in the deep subq, 2-0 placed in the superficial subq and debbie placed in the skin. The wound edges approximated very well. The wound was then cleaned with ETOH and dressed with optifoam dressing, drain sponges and tegaderms. Drains sewed into position. IONM confirmed no changes. The patient was then transferred off the [facility] spine table to their hospital bed a-traumatically. Drains continued to hold suction. The patient was then extubated and transferred to the ICU in stable condition having tolerated the procedure with no complications.
--- NOTE | 2022-12-28 10:20 | P.PN ---
Subjective Progress Note Date: 12/28/22 Principal diagnosis: Status post [id number] decompression and fusion Patient was evaluated today, she is resting comfortably in her hospital bed in the ICU. Patient's stable today at bedside. Hemoglobin 8, patient did receive 1 unit of packed RBCs in OR yesterday. Patient has not been out of bed at this time. Urinary catheter remains in place, postoperative drains [address] Patient states that the lower extremities do feel better since surgery. She's having discomfort surrounding the incision. She denies headache, lightheadedness, chest pain or shortness of breath. Objective - Vital Signs Vital signs: Vital Signs Temp 98.2 F 12/28/22 08:00 Pulse 93 12/28/22 10:00 Resp 13 12/28/22 10:00 BP 106/63 12/28/22 10:00 Pulse Ox 100 12/28/22 10:00 FiO2 Intake & Output 12/27/22 12/28/22 12/28/22 18:59 06:59 18:59 Intake Total 4312 1975 69 Output Total 2200 365 70 Balance 2112 1610 -1 Weight 86.7 kg 91 kg Intake: IV 4002 1975 69 A Line 36 9 Lactated Ringers 1,000 ml 240 60 @ 20 mls/hr IV .Q24H [facility] Rx#:[id number] Sodium Chloride 0.9% 1, 999 000 ml @ 999 mls/hr IV . Q1H1M [facility] Rx#:[id number] Sodium Chloride 0.9% 500 500 ml 500 ml @ 999 mls/hr IV .Q31M [facility] Rx#:[id number] Tranexamic 1,000 mg/100Ml 100 -NaCl 1,000 mg In Saline 1 100ml.bag @ 200 mls/hr IVPB ONCE [facility] Rx#: [id number] ceFAZolin 2 gm In Sodium 100 Chloride 0.9% 50 ml @ 100 mls/hr IVPB Q8H [facility] Rx#: [id number] Blood Product 310 Rc As-1 Unit 310 [id number] Other 0 Rc As-1 Unit 0 [id number] Output: Urine 700 365 70 Estimated Blood Loss 1500 Other: Voiding Method Indwelling Catheter Indwelling Catheter ABP, PAP, CO, CI - Last Documented Arterial Blood Pressure 144/57 - Exam Gen: AOx3, NAD VSS stable at this time Integument: Postoperative dressing and drain site appears stable, no active drainage visualized. One drain has moderate bloody serosanguineous drainage, any other has mild serosanguineous bloody drainage Palpation: Mild tenderness with palpation of the paraspinal region lower thoracic and lumbar spine ROM: Full range of motion in all major muscle groups in the bilateral upper extremities Range of motion is slightly limited with the right lower extremities due to postop pain, she is able to flex the hips along with, and plantar flexion, dorsiflexion, EHL, FHL Sensory Exam: Senory exam to light touch is intact C5-T1 Senosry exam to light touch is intact L2-S1 Motor: 5/5 strength appreciated in the bilateral upper extremities with shoulder elevation, shoulder abduction, elbow extension, elbow flexion, wrist extension, wrist flexion, 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 systems 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 4-/5 strength appreciated in the bilateral lower extremities with hip flexion, knee extension, knee flexion, dorsiflexion, EHL, FHL Reflexes: 2/4 in all UE and LE Negative Swapna's bilaterally Negative Babinski bilaterally Negative clonus bilaterally Special Test: Negative straight leg raise bilaterally - Labs CBC & Chem 7: 12/28/22 06:00 12/28/22 06:00 Labs: Abnormal Lab Results - Last 24 Hours (Table) 12/16/22 12/27/22 12/28/22 Range/Units 09:47 12:00 01:12 WBC 14.7 H (3.8-10.6) k/uL RBC 2.86 L (3.80-5.40) m/uL Hgb 9.3 L D (11.4-16.0) gm/dL Hct 27.9 L (34.0-46.0) % Plt Count (150-450) k/uL Neutrophils # (1.3-7.7) k/uL Lymphocytes # (1.0-4.8) k/uL VBG HCO3 21 L (24-28) mmol/L Sodium (137-145) mmol/L Chloride (98-107) mmol/L Glucose (74-99) mg/dL Calcium (8.4-10.2) mg/dL Crossmatch See Detail 12/28/22 12/28/22 Range/Units 06:00 06:00 WBC (3.8-10.6) k/uL RBC 2.38 L (3.80-5.40) m/uL Hgb 8.0 L (11.4-16.0) gm/dL Hct 23.2 L (34.0-46.0) % Plt Count 142 L (150-450) k/uL Neutrophils # 8.6 H (1.3-7.7) k/uL Lymphocytes # 0.7 L (1.0-4.8) k/uL VBG HCO3 (24-28) mmol/L Sodium 134 L (137-145) mmol/L Chloride 109 H (98-107) mmol/L Glucose 113 H (74-99) mg/dL Calcium 6.7 L (8.4-10.2) mg/dL Crossmatch Assessment and Plan Assessment: Postoperative day #1 status post T10 to pelvis decompression and fusion Acute blood loss anemia, expected surgical outcome Other medical comorbidities Plan: Pain control, continue use of oral medications and IV pain medication for breakthrough may adjust pending outpatient as well and working with therapy Activity instructions are discussed the patient, this to include up and out of bed for all meals. A prescription for a TLSO brace was placed in chart, case management was contacted. She only needs to utilize this when ambulating. Weight-bear as tolerated, utilize a walker at all times PT/OT evaluation DVT prophylaxis, we will begin heparin 5000 mg every 12 hours on 12/29/2022 1 unit of packed RBCs has been ordered, patient's hematocrit remains less than 24, her blood pressure is trending to the lower side and she is borderline tachycardic at this time Multiple stool softeners have been ordered for a scheduled time frame, anticipate constipation due to length of surgery, anesthesia medications and pain medication. Medical recommendations appreciated Discharge planning: Anticipate patient being admitted in-house for the next 72 hours or more pending her hospital course, we'll continue to follow daily Time with Patient: Less than 30
[2022-12-28] MEDS: SENNOSIDES-DOCUSATE SODIUM 1 EACH TAB PO SCH (10:21)
[2022-12-28] MEDS: MAGNESIUM HYDROXIDE 2,400 MG/30 ML CUP PO SCH (10:21)
[2022-12-28] MEDS: HYDROmorphone 0.5 MG/0.5 ML SYRINGE IVP PRN ×2 (16:15→21:01)
[2022-12-28] MEDS: FERROUS SULFATE 325 MG TAB PO SCH (16:15)
--- NOTE | 2022-12-28 16:15 | CT ---
EXAMINATION TYPE: CT thor lumbar spine wo con DATE OF EXAM: 12/28/2022 COMPARISON: Preoperative studies HISTORY: UPPER NECK PAIN FROM FALL CT DLP: 1774.4 mGycm Automated exposure control for dose reduction was used. Unenhanced CT of the thoracolumbar spine was performed with bone and soft tissue window settings submitted. Axial coronal and sagittal images subm itted. FINDINGS: Decompressive laminectomy extending from T10 through L5 S1. Pedicular screws are in place. Interverte bral spacers are noted at L2-3 through L5-S1. Postoperative alignment is within normal limits. Skin s taples are seen throughout. Postsurgical soft tissue changes noted. Extensive streak artifact limits evaluation. There is curvature convex to the right of the thoracic spine. IMPRESSION: DECOMPRESSIVE FUSION EXTENDING FROM T10 THROUGH L5 S1 WITH APPROPRIATE POSTOPERATIVE ALIGNMENT.
[2022-12-29] MEDS: HYDROmorphone 0.5 MG/0.5 ML SYRINGE IVP PRN ×3 (00:55→08:09)
[2022-12-29] MEDS: ACETAMINOPHEN TAB 325 MG TAB PO SCH ×4 (00:56→17:14)
[2022-12-29 04:59] LABS: Basophils % (A) 0 %; Eosinophils % (A) 0 %; HGB 8.3 gm/dL (11.4-16.0); Lymphocytes # (A) 0.7 k/uL (1.0-4.8); Lymphocytes % (A) 10 %; MCH 32.9 pg (25.0-35.0); MCHC 33.4 g/dL (31.0-37.0); MCV 98.7 fL (80.0-100.0); Mean Platelet Volume 8.7; Monocytes # (A) 0.5 k/uL (0-1.0); Monocytes % (A) 7 %; Neutrophils # (A) 5.6 k/uL (1.3-7.7); Neutrophils % (A) 80 %; Platelet Count 115 k/uL (150-450); RBC 2.54 m/uL (3.80-5.40); RDW 13.4 % (11.5-15.5)
[2022-12-29 05:24] LABS: African American GFR (CKD) >90 (>60 ml/min/1.73 sqM); Anion Gap 6 mmol/L; Blood Urea Nitrogen 13 mg/dL (7-17); Calcium 7.2 mg/dL (8.4-10.2); Carbon Dioxide 22 mmol/L (22-30); Chloride 108 mmol/L (98-107); Glucose 106 mg/dL (74-99); Non-African American GFR(CKD) 89 (>60 ml/min/1.73 sqM); Potassium 4.3 mmol/L (3.5-5.1); Sodium 136 mmol/L (137-145)
[2022-12-29] MEDS: FERROUS SULFATE 325 MG TAB PO SCH ×2 (06:34→17:14)
[2022-12-29] MEDS: LACTATED RINGERS 1,000 ML IV SCH (06:37)
[2022-12-29] MEDS: SENNOSIDES-DOCUSATE SODIUM 1 EACH TAB PO SCH (08:08)
[2022-12-29] MEDS: MAGNESIUM HYDROXIDE 2,400 MG/30 ML CUP PO SCH (08:08)
[2022-12-29] MEDS: GABAPENTIN 300 MG CAP PO SCH ×3 (08:09→22:51)
--- NOTE | 2022-12-29 09:12 | P.PN ---
Subjective Progress Note Date: 12/29/22 I am seeing this patient in new consultation today 12/28/2022 in the intensive care unit postoperative day #1 following a T10 to pelvis decompression and fusion. Patient is a 72-year-old white female with past medical history significant for chronic lower back pain, cystitis, hyperlipidemia, hypothyroid ism. Patient has been having symptoms of chronic lower back pain that radiates down her bilateral lower legs over the last couple years. This is accompanied with bilateral lower extremity weakness and numbness. She also complained of some intermittent urinary incontinence, however, has a history of chronic cystitis. Patient underwent an elective T10 to pelvis decompression and fusion yesterday. There were no immediate perioperative complications reported. Patient did have an EBL of approximately 1.5 L. She did receive 1 unit PRBC intraoperatively. She also received some TXA. Patient extubated in recovery, and was transferred to the intensive care unit. Patient is currently lying supi ne in bed, on 2 L/m nasal cannula, in no acute distress. She is reporting some postsurgical incisional pain. She is able to move bilateral lower extremities, strength 5 out of 5. Neurovascular status appears intact. There are 2 Hemovacs with minimal sanguinous output. Most recent preoperative CBC shows a WBC count of 5.7, hemoglobin 14.7, hematocrit 44.4, platelets 207. Preoperative BMP was unremarkable. Lactate Ringer's is infusing at 20 ML's per hour. There is an indwelling urinary catheter, urine output is marginal. Blood pressure is borderline hypotensive. No vasopressors have been needed so far. Follow-up lumbar CT is pending. Patient will be monitored in the intensive care unit at least overnight. On today's evaluation of 12/29/2022, the patient is still in the intensive care unit and the patient is currently postop day #2 following her spine surgery which involved decompression and fusion T10 to pelvis. Noted that hemoglobin is stable. Her current hemoglobin of 8.3 compared to 8.0 from yesterday. Hemodynamically stable. No hypotension. She is on room air oxygen. She is having issues still with pain and she'll be switched to Percocet and Dilaudid will be discontinued. CAT scan of the thoracic and the lumbar spine was done yesterday that showed postop changes with adequate alignment. No complications noted. The white suppositive 7, sodium levels of 136 and the potassium levels of 4.3. She has compression devices to lower extremity for DVT prophylaxis. Objective - Vital Signs Vital signs: Vital Signs Temp 97.6 F 12/29/22 08:00 Pulse 90 12/29/22 09:00 Resp 22 12/29/22 09:00 BP 123/61 12/29/22 09:00 Pulse Ox 92 L 12/29/22 09:00 FiO2 Intake & Output 12/28/22 12/29/22 12/29/22 18:59 06:59 18:59 Intake Total 1565 1160 30 Output Total 1400 2305 335 Balance 165 1145 -305 Weight 96.8 kg Intake: IV 255 360 30 0.9% KVO 120 10 A Line 15 Lactated Ringers 1,000 ml 240 240 20 @ 20 mls/hr IV .Q24H [facility] Rx#:[id number] Intake, IV Titration 1000 Amount Sodium Chloride 0.9% 1, 1000 000 ml @ 999 mls/hr IV . Q1H1M ONE Rx#:[id number] Oral 800 Blood Product 310 Rc As-1 Unit 310 [id number] Output: Drainage 300 235 85 Lower Back 300 5 85 Upper Back 230 Urine 1100 2070 250 Other: Voiding Method Indwelling Catheter Indwelling Catheter Indwelling Catheter ABP, PAP, CO, CI - Last Documented Arterial Blood Pressure 90/48 - Exam GENERAL EXAM: Alert, 72-year-old white female appearing stated age, comfortable in no apparent distress. HEAD: Normocephalic and atraumatic EYES: Normal reaction of pupils, equal size. NOSE: Clear with pink turbinates. THROAT: No erythema or exudates. NECK: No masses, no JVD. CHEST: No chest wall deformity. LUNGS: Equal air entry with no crackles, wheeze, rhonchi or dullness. On 2 L/m nasal cannula. No conversational dyspnea or accessory muscle use.. CVS: S1 and S2 normal with no audible murmur, regular rhythm. No extra heart sounds ABDOMEN: No hepatosplenomegaly, active bowel sounds, no guarding or rigidity. There is a nonreducible abdominal hernia. SPINE: No scoliosis or deformity Post surgical incisional dressing is clean, dry, and intact. SKIN: No rashes CENTRAL NERVOUS SYSTEM: No focal deficits, tone is normal in all 4 extremities. Bilateral lower extremity strength 5/5. Sensation intact. EXTREMITIES: There is no peripheral edema, clubbing, or cyanosis. Peripheral pulses are intact. - Labs CBC & Chem 7: 12/29/22 04:07 12/29/22 04:07 Labs: Abnormal Lab Results - Last 24 Hours (Table) 12/16/22 12/29/22 12/29/22 Range/Units 09:47 04:07 04:07 RBC 2.54 L (3.80-5.40) m/uL Hgb 8.3 L (11.4-16.0) gm/dL Hct 25.0 L (34.0-46.0) % Plt Count 115 L (150-450) k/uL Lymphocytes # 0.7 L (1.0-4.8) k/uL Sodium 136 L (137-145) mmol/L Chloride 108 H (98-107) mmol/L Glucose 106 H (74-99) mg/dL Calcium 7.2 L (8.4-10.2) mg/dL Crossmatch See Detail Assessment and Plan Assessment: Postoperative day #2 following a T10 to pelvis decompression and fusion. No immediate perioperative complications reported. Moderate to severe thoracic-lumbar spondylosis with stenosis Postoperative hypotension, possibly related to acute blood loss, patient is post transfusion 1 unit PRBC. Hypothyroidism History of hyperlipidemia Plan: Patient is currently on room air oxygen and she is using the incentive spirometer Hemoglobin is stable Blood pressure is stable IV fluids to KVO Pain control with Percocet compression devices to lower extremities Stop the Dilaudid The patient will need a back brace The patient has a Hemovac drain 2 and her back. Output is being monitored. Output is in order of 230 mL from the upper drain and none from the lower drain and output is obviously bloody. CAT scan of the lumbar spine shows postsurgical changes with well alignment The patient should be able to transfer to a medical surgical floor today. Restart Synthroid.
[2022-12-29] MEDS: HEPARIN SODIUM,PORCINE 5,000 UNIT/ML 1 ML VIAL SQ SCH ×2 (10:36→20:41)
--- NOTE | 2022-12-29 11:13 | P.PN ---
Subjective Progress Note Date: 12/29/22 Principal diagnosis: Status post [id number] decompression and fusion Patient was evaluated today, she is resting comfortably in her hospital bed in the ICU. Patient's stable today at bedside. Nursing was available at bedside also. One of the drains is very minimal output, the other drain had about 200 mL of bloody serosanguineous drainage overnight. She states that the dressings were all in good position and condition. Pulmonology is also evaluated the patient, they have added Percocet 7.5 mg/325 mg and discontinue the Dilaudid. Urinary catheter remains in place. Patient has yet to be fitted for the TLSO brace. She was up in her chair earlier this morning for about 3-4 hours. She denies headache, lightheadedness, chest pain or shortness of breath. Objective - Vital Signs Vital signs: Vital Signs Temp 97.6 F 12/29/22 08:00 Pulse 90 12/29/22 09:00 Resp 22 12/29/22 09:00 BP 123/61 12/29/22 09:00 Pulse Ox 92 L 12/29/22 09:00 FiO2 Intake & Output 12/28/22 12/29/22 12/29/22 18:59 06:59 18:59 Intake Total 1565 1160 30 Output Total 1400 2305 335 Balance 165 -1145 -305 Weight 96.8 kg Intake: IV 255 360 30 0.9% KVO 120 10 A Line 15 Lactated Ringers 1,000 ml 240 240 20 @ 20 mls/hr IV .Q24H [facility] Rx#:[id number] Intake, IV Titration 1000 Amount Sodium Chloride 0.9% 1, 1000 000 ml @ 999 mls/hr IV . Q1H1M [facility] Rx#:[id number] Oral 800 Blood Product 310 Rc As-1 Unit 310 [id number] Output: Drainage 300 235 85 Lower Back 300 5 85 Upper Back 230 Urine 1100 2070 250 Other: Voiding Method Indwelling Catheter Indwelling Catheter Indwelling Catheter ABP, PAP, CO, CI - Last Documented Arterial Blood Pressure 90/48 - Exam Gen: AOx3, NAD VSS stable at this time Integument: Postoperative dressing and drain site appears stable, no active drainage visualized. One drain has moderate bloody serosanguineous drainage, any other has mild serosanguineous bloody drainage Palpation: Mild tenderness with palpation of the paraspinal region lower thoracic and lumbar spine ROM: Full range of motion in all major muscle groups in the bilateral upper extremities Range of motion is slightly limited with the right lower extremities due to postop pain, she is able to flex the hips along with, and plantar flexion, dorsiflexion, EHL, FHL Sensory Exam: Senory exam to light touch is intact C5-T1 Senosry exam to light touch is intact L2-S1 Motor: 5/5 strength appreciated in the bilateral upper extremities with shoulder elevation, shoulder abduction, elbow extension, elbow flexion, wrist extension, wrist flexion, 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0-4.8) k/uL Sodium 136 L (137-145) mmol/L Chloride 108 H (98-107) mmol/L Glucose 106 H (74-99) mg/dL Calcium 7.2 L (8.4-10.2) mg/dL Crossmatch See Detail Assessment and Plan Assessment: Postoperative day #2 status post T10 to pelvis decompression and fusion Acute blood loss anemia, expected surgical outcome Other medical comorbidities Plan: Pain control, continue with Percocet 7.5 mg/325 mg, gabapentin and Flexeril Activity instructions are discussed the patient, this to include up and out of bed for all meals. We had a long discussion today regarding the need to increase her activity as the days go on to help with her postoperative period. TLSO brace when up and ambulating, she can ambulate around the room with a walker until brace is delivered. No bending, twisting or lifting. We discussed leg lifting exercises to utilize while in bed Weight-bear as tolerated, utilize a walker at all times PT/OT evaluation DVT prophylaxis, heparin 5000 units every 12 CBC and vitals remained stable, continue to monitor hemoglobin. Continue ferrous sulfate 325 mg twice a day Discontinue urinary catheter today, okay to use bedside commode Other medical recommendations appreciated We'll continue to follow during inpatient stay Time with Patient: Less than 30
[2022-12-29] MEDS: oxyCODONE-APAP 7.5-325MG 1 EACH TAB PO PRN ×2 (12:04→20:40)
--- NOTE | 2022-12-29 12:40 | P.CONS ---
History of Present Illness - Reason for Consult Consult date: 12/29/22 Medical management - Chief Complaint [id number] decompression and fusion. - History of Present Illness Patient is a 72-year-old female with a known history of GERD, hyperlipidemia, hypothyroidism, chronic low back pain and history of bladder surgery and prior history of smoking was admitted to the hospital for pelvic decompression fusion surgery. Patient is status post surgery on 12/27/2022. Status post T12 to pelvic decompression surgery. Currently in the MICU. Denied any complaints of chest pain or shortness breath. Complains of pain in the lower back. Denied any leg numbness or tingling sensation. No fever no chills. Patient is being transitioned to oral pain medications. No complaints of headache or dizziness. No cough or sputum production. Patient has been afebrile. Laboratory to hemoglobin level improved to 8.3 from 8.0 yesterday. WBC 7.0 hemoglobin 8.3 and platelets 115, sodium 136 potassium 4.3 chloride 100 bicarb is 22 BUN 13 and creatinine 0.6 and calcium 7.2. Review of Systems Constitutional: Patient denies any fever or chills . No generalized weakness or weight loss. Abdomen: Patient denied nausea vomiting and diarrhea and abdominal pain. Cardiovascular: Patient denies any chest pain or short of breath no palpitations. Respiratory: patient denied any cough is from production. No shortness of breath Neurologic: Patient denied any numbness or tingling headache. Musculoskeletal: Patient denies any complaints of joint swelling or deformity. Lower back pain. Skin: Negative Psychiatric: Negative Endocrine: No heat or cold intolerance. No recent weight gain. Genitourinary: No dysuria or hematuria. All other 14 point ROS negative except the above Past Medical History Past Medical History: GERD/Reflux, Hyperlipidemia, Musculoskeletal Disorder, O steoarthritis (OA), Thyroid Disorder Additional Past Medical History / Comment(s): Bladder Cystitis, chronic low back pain, Spinal Stenosis. History of Any Multi-Drug Resistant Organisms: None Reported Past Surgical History: Bladder Surgery, Hysterectomy, Orthopedic Surgery, Tonsillectomy Additional Past Surgical History / Comment(s): Bilateral hip replacements, thyroidectomy for multiple nodules, toe surgery, bladder procedure, Pain Clinic Procedures. Past Anesthesia/Blood Transfusion Reactions: No Reported Reaction Smoking Status: Former smoker, Vaper - Past Family History Mother Family Medical History: Coronary Artery Disease (CAD) Additional Family Medical History / Comment(s): from heart problems. Medications and Allergies Home Medications Medication Instructions Recorded Confirmed Type Ferrous Sulfate [Slow Fe] 142 mg PO MO 03/12/20 12/21/22 History Levothyroxine Sodium 125 mcg PO HS 03/12/20 12/21/22 History Pentosan Polysulfate Sodium 100 mg PO TID 03/12/20 12/21/22 History [Elmiron] ALPRAZolam [Xanax] 0.5 mg PO DAILY PRN 12/21/22 12/21/22 History Itzel(Unk) 2 tab PO DAILY 12/21/22 12/27/22 History Ergocalciferol [Vitamin D2 (1250 1 tab PO MO 12/21/22 12/21/22 History Mcg = 33500 Iu)] HYDROcodone/APAP 5-325MG [[place] 1 tab PO DAILY PRN 12/21/22 12/21/22 History 5-325] Allergies Allergy/AdvReac Type Severity Reaction Status Date / Time No Known Allergies Allergy Verified 12/27/22 07:45 Physical Exam Vitals: Vital Signs Temp Pulse Resp BP Pulse Ox 12/29/22 09:00 90 22 123/61 92 L 12/29/22 08:12 95 12/29/22 08:00 97.6 F 92 17 119/88 97 12/29/22 07:00 96 21 139/66 94 L 12/29/22 06:00 94 13 140/72 98 12/29/22 05:00 98 12 128/55 99 12/29/22 04:00 98.9 F 82 19 120/64 100 12/29/22 03:00 95 13 114/64 98 12/29/22 02:00 88 13 111/61 98 12/29/22 01:00 99 6 L 117/65 98 12/29/22 00:00 98.6 F 97 16 105/53 99 12/28/22 23:14 97 15 115/58 100 12/28/22 23:00 100 15 108/70 98 12/28/22 22:00 110 H 17 117/58 97 12/28/22 21:00 99 15 110/58 95 12/28/22 20:00 99.7 F H 105 H 16 101/62 95 12/28/22 19:00 103 H 17 103/43 12/28/22 18:00 98.6 F 101 H 12 103/64 100 12/28/22 17:00 104 H 10 L 120/93 100 12/28/22 16:00 98.6 F 101 H 12 103/64 100 12/28/22 15:59 98.6 F 102 H 14 104/66 100 12/28/22 15:39 98.4 F 98 12 104/65 100 12/28/22 15:00 110 H 13 108/61 100 12/28/22 14:00 86 12 112/60 12/28/22 13:00 98 16 107/54 95 12/28/22 12:00 98.6 F 105 H 12 111/59 96 12/28/22 11:00 138 H 28 H 98/73 92 L 12/28/22 10:00 93 13 106/63 100 Intake and Output 12/28/22 12/29/22 12/29/22 22:59 06:59 14:59 Intake Total 500 1070 30 Output Total 1880 1625 335 Balance -1380 -555 -305 Intake: IV 190 270 30 0.9% KVO 30 90 10 Lactated Ringers 1,000 ml 160 180 20 @ 20 mls/hr IV .Q24H [facility] Rx#:[id number] Oral 800 Blood Product 310 Rc As-1 Unit 310 [id number] Output: Drainage 455 80 85 Lower Back 305 0 85 Upper Back 150 80 Urine 1425 1545 250 Other: Voiding Method Indwelling Catheter Indwelling Catheter Indwelling Catheter Weight 96.8 kg PHYSICAL EXAMINATION: Patient is lying in the bed comfortably, no acute distress, awake alert and oriented. Patient was drowsy.. HEENT: Normocephalic. Neck is supple. Pupils reactive. Nostrils clear. Oral cavity is moist. Neck reveals no JVD, carotid bruits, or thyromegaly. CHEST EXAMINATION: Trachea is central. Symmetrical expansion. Bibasilar diminished sounds. No wheezing or rhonchi.. CARDIAC: Normal S1, S2 with no gallops. No murmurs ABDOMEN: Soft. Bowel sounds normal. No organomegaly. No abdominal bruits. Extremities: reveal no edema. No clubbing or cyanosis, lumbar surgical site is bandaged. Neurologically awake, alert, oriented x3 with well-coordinated movements. No gross focal deficits noted Skin: No rash or skin lesions. Psychiatric: Coperative. Nonsuicidal Musculoskeletal: No joint swelling or deformity. Normal range of motion. Results CBC & Chem 7: 12/30/22 04:28 12/29/22 04:07 Labs: Abnormal Lab Results - Last 24 Hours (Table) 12/16/22 12/29/22 12/29/22 Range/Units 09:47 04:07 04:07 RBC 2.54 L (3.80-5.40) m/uL Hgb 8.3 L (11.4-16.0) gm/dL Hct 25.0 L (34.0-46.0) % Plt Count 115 L (150-450) k/uL Lymphocytes # 0.7 L (1.0-4.8) k/uL Sodium 136 L (137-145) mmol/L Chloride 108 H (98-107) mmol/L Glucose 106 H (74-99) mg/dL Calcium 7.2 L (8.4-10.2) mg/dL Crossmatch See Detail Assessment and Plan Assessment: Status post T12 to pelvis decompression surgery. Postoperative day 2 Chronic low back pain with moderate to severe sick lumbar spondylosis with stenosis. Acute blood loss anemia likely due to surgery. Hemoglobin is stable today. Status post 1 unit of PRBC. Hypothyroidism Hyperlipidemia GERD Osteoarthritis History of bladder surgery and cystitis DVT prophylaxis Prior history of smoking and vaping Plan: Patient be continued on pain management, bowel regimen and encourage incentive spirometry. Monitor H&H. Try to limit narcotic pain medications. Patient was started back on levothyroxine and follow up closely. PTOT consult. We will continue to follow closely and further recommendations based on the clinical course. Thank you for your consult.
[2022-12-29] MEDS: CYCLOBENZAPRINE 5 MG TAB PO PRN (14:48)
[2022-12-29] MEDS ORDERED: NON FORMULARY DRUG (Pentosan Polysulfate Sodium [Elmiron] 100 MG Capsule) PO SCH (16:00)
[2022-12-29] MEDS: LEVOTHYROXINE 125 MCG TAB PO SCH (20:41)
[2022-12-30] MEDS: ACETAMINOPHEN TAB 325 MG TAB PO SCH ×5 (01:22→23:45)
[2022-12-30] MEDS: oxyCODONE-APAP 7.5-325MG 1 EACH TAB PO PRN ×4 (03:07→20:46)
[2022-12-30 04:53] LABS: Basophils % (A) 0 %; Eosinophils % (A) 0 %; HCT 22.9 % (34.0-46.0); HGB 7.7 gm/dL (11.4-16.0); Lymphocytes # (A) 0.6 k/uL (1.0-4.8); Lymphocytes % (A) 8 %; MCH 32.6 pg (25.0-35.0); MCHC 33.5 g/dL (31.0-37.0); MCV 97.3 fL (80.0-100.0); Mean Platelet Volume 8.8; Monocytes # (A) 0.4 k/uL (0-1.0); Monocytes % (A) 5 %; Neutrophils # (A) 6.6 k/uL (1.3-7.7); Neutrophils % (A) 84 %; Platelet Count 125 k/uL (150-450); RBC 2.35 m/uL (3.80-5.40); RDW 13.8 % (11.5-15.5); WBC 7.9 k/uL (3.8-10.6)
[2022-12-30] MEDS: LACTATED RINGERS 1,000 ML IV SCH (05:32)
[2022-12-30] MEDS: FERROUS SULFATE 325 MG TAB PO SCH ×2 (06:35→16:36)
--- NOTE | 2022-12-30 08:18 | P.PN ---
Subjective Progress Note Date: 12/30/22 I am seeing this patient in new consultation today 12/28/2022 in the intensive care unit postoperative day #1 following a T10 to pelvis decompression and fusion. Patient is a 72-year-old white female with past medical history significant for chronic lower back pain, cystitis, hyperlipidemia, hypothyroid ism. Patient has been having symptoms of chronic lower back pain that radiates down her bilateral lower legs over the last couple years. This is accompanied with bilateral lower extremity weakness and numbness. She also complained of some intermittent urinary incontinence, however, has a history of chronic cystitis. Patient underwent an elective T10 to pelvis decompression and fusion yesterday. There were no immediate perioperative complications reported. Patient did have an EBL of approximately 1.5 L. She did receive 1 unit PRBC intraoperatively. She also received some TXA. Patient extubated in recovery, and was transferred to the intensive care unit. Patient is currently lying supi ne in bed, on 2 L/m nasal cannula, in no acute distress. She is reporting some postsurgical incisional pain. She is able to move bilateral lower extremities, strength 5 out of 5. Neurovascular status appears intact. There are 2 Hemovacs with minimal sanguinous output. Most recent preoperative CBC shows a WBC count of 5.7, hemoglobin 14.7, hematocrit 44.4, platelets 207. Preoperative BMP was unremarkable. Lactate Ringer's is infusing at 20 ML's per hour. There is an indwelling urinary catheter, urine output is marginal. Blood pressure is borderline hypotensive. No vasopressors have been needed so far. Follow-up lumbar CT is pending. Patient will be monitored in the intensive care unit at least overnight. On today's evaluation of 12/29/2022, the patient is still in the intensive care unit and the patient is currently postop day #2 following her spine surgery which involved decompression and fusion T10 to pelvis. Noted that hemoglobin is stable. Her current hemoglobin of 8.3 compared to 8.0 from yesterday. Hemodynamically stable. No hypotension. She is on room air oxygen. She is having issues still with pain and she'll be switched to Percocet and Dilaudid will be discontinued. CAT scan of the thoracic and the lumbar spine was done yesterday that showed postop changes with adequate alignment. No complications noted. The white suppositive 7, sodium levels of 136 and the potassium levels of 4.3. She has compression devices to lower extremity for DVT prophylaxis. 12/30 2022, the patient is postop day #3. Surgical wound site is clean and intact. The drains are still in place. Output from the drains are in the order of 1 90 mL overnight from the lower drains, 0 from the upper drain. Hemodynamically stable. No hypotension. She is complaining of some soreness. Nevertheless, she is able to move around with help of a walker. She has a back brace available to her. In terms of respiratory status, lotions vaccination the patient is currently on room air oxygen. Hemoglobin is at 7.7, white cycles at 7.9, platelet count is at 125. Sodium levels of 136. In terms of pain control, she is on Percocet as needed. Dilaudid was discontinued. She is taking Senokot for bowel motility. She is on Flexeril. She is on heparin subcu for DVT prophylaxis. Objective - Vital Signs Vital signs: Vital Signs Temp 98.0 F 12/30/22 02:00 Pulse 103 H 12/30/22 02:00 Resp 14 12/30/22 02:00 BP 147/84 12/30/22 02:00 Pulse Ox 95 12/30/22 07:47 FiO2 Intake & Output 12/29/22 12/30/22 12/30/22 18:59 06:59 18:59 Intake Total 30 Output Total 610 190 Balance -580 -190 Weight 93.5 kg Intake: IV 30 0.9% KVO 10 Lactated Ringers 1,000 ml 20 @ 20 mls/hr IV .Q24H [facility] Rx#:[id number] Output: Drainage 135 190 Lower Back 135 190 Upper Back 0 0 Urine 475 Other: Voiding Method Indwelling Catheter Indwelling Catheter # Voids 0 1 ABP, PAP, CO, CI - Last Documented Arterial Blood Pressure 90/48 - Exam GENERAL EXAM: Alert, 72-year-old white female appearing stated age, comfortable in no apparent distress. HEAD: Normocephalic and atraumatic EYES: Normal reaction of pupils, equal size. NOSE: Clear with pink turbinates. THROAT: No erythema or exudates. NECK: No masses, no JVD. CHEST: No chest wall deformity. LUNGS: Equal air entry with no crackles, wheeze, rhonchi or dullness. On 2 L/m nasal cannula. No conversational dyspnea or accessory muscle use.. CVS: S1 and S2 normal with no audible murmur, regular rhythm. No extra heart sounds ABDOMEN: No hepatosplenomegaly, active bowel sounds, no guarding or rigidity. There is a nonreducible abdominal hernia. SPINE: No scoliosis or deformity Post surgical incisional dressing is clean, dry, and intact. SKIN: No rashes CENTRAL NERVOUS SYSTEM: No focal deficits, tone is normal in all 4 extremities. Bilateral lower extremity strength 5/5. Sensation intact. EXTREMITIES: There is no peripheral edema, clubbing, or cyanosis. Peripheral pulses are intact. - Labs CBC & Chem 7: 12/30/22 04:28 12/29/22 04:07 Labs: Abnormal Lab Results - Last 24 Hours (Table) 12/30/22 Range/Units 04:28 RBC 2.35 L (3.80-5.40) m/uL Hgb 7.7 L (11.4-16.0) gm/dL Hct 22.9 L (34.0-46.0) % Plt Count 125 L (150-450) k/uL Lymphocytes # 0.6 L (1.0-4.8) k/uL Assessment and Plan Assessment: Postoperative day #3 following a T10 to pelvis decompression and fusion. No immediate perioperative complications reported. Moderate to severe thoracic-lumbar spondylosis with stenosis Postoperative hypotension, possibly related to acute blood loss, patient is post transfusion 1 unit PRBC. Hypothyroidism History of hyperlipidemia Plan: Clinically stable. Will monitor the hemoglobin which is down to 7.7. No active bleeding. Management of the drains will be left up to the surgeon. Patient is currently on room air oxygen and she is using the incentive spirometer Hemoglobin is stable Blood pressure is stable IV fluids to KVO Pain control with Percocet compression devices to lower extremities The patient will need a back brace The patient has a Hemovac drain 2 and her back. Output is being monitored. Output is in order of 190 mL from the upper drain and none from the lower drain and output is obviously bloody. CAT scan of the lumbar spine shows postsurgical changes with well alignment The patient should be able to transfer to a medical surgical floor today. Synthroid restarted Patient can be transferred to medical surgical floor. She has a TLSO brace and she has a walker the bedside
[2022-12-30] MEDS: GABAPENTIN 300 MG CAP PO SCH ×3 (09:30→22:07)
[2022-12-30] MEDS: HEPARIN SODIUM,PORCINE 5,000 UNIT/ML 1 ML VIAL SQ SCH ×2 (09:30→20:47)
[2022-12-30] MEDS: MAGNESIUM HYDROXIDE 2,400 MG/30 ML CUP PO SCH (09:31)
[2022-12-30] MEDS: SENNOSIDES-DOCUSATE SODIUM 1 EACH TAB PO SCH (09:31)
[2022-12-30] MEDS: CYCLOBENZAPRINE 5 MG TAB PO PRN ×2 (12:55→20:47)
--- NOTE | 2022-12-30 12:58 | P.PN ---
Subjective Progress Note Date: 12/30/22 Principal diagnosis: Status post [id number] decompression and fusion Patient was evaluated today, she is resting comfortably in her hospital bed in the ICU. Patient's stable today at bedside. Nursing was available at bedside also. Patient has been up and sitting in a chair earlier in the morning for at least 3-4 hours. Patient was fitted for the TLSO brace yesterday. She has been up and ambulating well. Pain is controlled currently. She denies headache, lightheadedness, chest pain or shortness of breath. Objective - Vital Signs Vital signs: Vital Signs Temp 98.4 F 12/30/22 12:41 Pulse 104 H 12/30/22 12:41 Resp 18 12/30/22 12:41 BP 176/93 12/30/22 12:41 Pulse Ox 95 12/30/22 12:21 FiO2 Intake & Output 12/29/22 12/30/22 12/30/22 18:59 06:59 18:59 Intake Total 30 0 Output Total 610 190 Balance -580 -190 0 Weight 93.5 kg Intake: IV 30 0.9% KVO 10 Lactated Ringers 1,000 ml 20 @ 20 mls/hr IV .Q24H [facility] Rx#:[id number] Blood Product 0 Rc As-1 Unit 0 [id number] Output: Drainage 135 190 Lower Back 135 190 Upper Back 0 0 Urine 475 Other: Voiding Method Indwelling Catheter Indwelling Catheter Indwelling Catheter # Voids 0 1 ABP, PAP, CO, CI - Last Documented Arterial Blood Pressure 90/48 - Exam Gen: AOx3, NAD VSS stable at this time Integument: Postoperative dressing was removed today at office, the upper drain was also removed. Pomerene are all in good position and condition. No active drainage visualized no redness is noted. Palpation: Mild tenderness with palpation of the paraspinal region lower thoracic and lumbar spine ROM: Full range of motion in all major muscle groups in the bilateral upper extrem ities Range of motion is slightly limited with the right lower extremities due to postop pain, she is able to flex the hips along with, and plantar flexion, dorsiflexion, EHL, FHL Sensory Exam: Senory exam to light touch is intact C5-T1 Senosry exam to light touch is intact L2-S1 Motor: 5/5 strength appreciated in the bilateral upper extremities with shoulder elevation, shoulder abduction, elbow extension, elbow flexion, wrist extension, wrist flexion, 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 4-/5 strength appreciated in the bilateral lower extremities with hip flexion, knee extension, knee flexion, dorsiflexion, EHL, FHL Reflexes: 2/4 in all UE and LE Negative Swapna's bilaterally Negative Babinski bilaterally Negative clonus bilaterally Special Test: Negative straight leg raise bilaterally - Labs CBC & Chem 7: 12/30/22 04:28 12/29/22 04:07 Labs: Abnormal Lab Results - Last 24 Hours (Table) 12/30/22 12/30/22 Range/Units 04:28 09:44 RBC 2.35 L (3.80-5.40) m/uL Hgb 7.7 L (11.4-16.0) gm/dL Hct 22.9 L (34.0-46.0) % Plt Count 125 L (150-450) k/uL Lymphocytes # 0.6 L (1.0-4.8) k/uL Crossmatch See Detail Assessment and Plan Assessment: Postoperative day #3 status post T10 to pelvis decompression and fusion Acute blood loss anemia, expected surgical outcome Other medical comorbidities Plan: Pain control, continue with Percocet 7.5 mg/325 mg, gabapentin and Flexeril Activity instructions are discussed the patient, this to include up and out of bed for all meals. We had a long discussion today regarding the need to inc rease her activity as the days go on to help with her postoperative period. TLSO brace when up and ambulating, she can ambulate around the room with a walker until brace is delivered. No bending, twisting or lifting. We discussed leg lifting exercises to utilize while in bed Weight-bear as tolerated, utilize a walker at all times PT/OT evaluation DVT prophylaxis, heparin 5000 units every 12 CBC was noted to drop, hematocrit remains below 24. One unit of packed RBCs has been ordered. Continue ferrous sulfate. Other medical specialists recommendations appreciated patient is being transferred to [address] [place] [address] today, we'll continue to follow during hospital stay. Time with Patient: Less than 30
[2022-12-30] MEDS: LEVOTHYROXINE 125 MCG TAB PO SCH (20:47)
--- NOTE | 2022-12-30 23:04 | P.PN ---
Subjective Progress Note Date: 12/30/22 Patient is a 72-year-old female with a known history of GERD, hyperlipidemia, hypothyroidism, chronic low back pain and history of bladder surgery and prior history of smoking was admitted to the hospital for pelvic decompression fusion surgery. Patient is status post surgery on 12/27/2022. Status post T12 to pelvic decompression surgery. Currently in the MICU. Denied any complaints of chest pain or shortness breath. Complains of pain in the lower back. Denied any leg numbness or tingling sensation. No fever no chills. Patient is being transitioned to oral pain medications. No complaints of headache or dizziness. No cough or sputum production. Patient has been afebrile. Laboratory to h emoglobin level improved to 8.3 from 8.0 yesterday. WBC 7.0 hemoglobin 8.3 and platelets 115, sodium 136 potassium 4.3 chloride 100 bicarb is 22 BUN 13 and creatinine 0.6 and calcium 7.2. 12/30/2022 Patient is currently in the MICU. Status post T12 to pelvic decompression. Postop day 3. Still complains of pain. Currently on oral pain medications. Patient has been afebrile. On room air. No complaints of chest pain or shortness of breath. Drain tubes in place. No headache or dizziness. Hemoglobin 7.7 today. WBC 7.9 platelets 125,. Current medications reviewed. Objective - Vital Signs Vital signs: Vital Signs Temp 98.3 F 12/30/22 14:29 Pulse 92 12/30/22 14:29 Resp 18 12/30/22 14:29 BP 163/83 12/30/22 14:29 Pulse Ox 93 L 12/30/22 14:29 FiO2 Intake & Output 12/29/22 12/30/22 12/30/22 18:59 06:59 18:59 Intake Total 30 310 Output Total 610 190 Balance -580 -190 310 Weight 93.5 kg Intake: IV 30 0.9% KVO 10 Lactated Ringers 1,000 ml 20 @ 20 mls/hr IV .Q24H [facility] Rx#:[id number] Blood Product 310 Rc As-1 Unit 310 [id number] Output: Drainage 135 190 Lower Back 135 190 Upper Back 0 0 Urine 475 Other: Voiding Method Indwelling Catheter Indwelling Catheter Toilet # Voids 0 1 1 ABP, PAP, CO, CI - Last Documented Arterial Blood Pressure 90/48 - Exam PHYSICAL EXAMINATION: Patient is lying in the bed comfortably, no acute distress, awake alert and oriented. Patient was drowsy.. HEENT: Normocephalic. Neck is supple. Pupils reactive. Nostrils clear. Oral cavity is moist. Neck reveals no JVD, carotid bruits, or thyromegaly. CHEST EXAMINATION: Trachea is central. Symmetrical expansion. Bibasilar diminished sounds. No wheezing or rhonchi.. CARDIAC: Normal S1, S2 with no gallops. No murmurs ABDOMEN: Soft. Bowel sounds normal. No organomegaly. No abdominal bruits. Extremities: reveal no edema. No clubbing or cyanosis, lumbar surgical site is bandaged. Neurologically awake, alert, oriented x3 with well-coordinated movements. No gross focal deficits noted Skin: No rash or skin lesions. Psychiatric: Coperative. Nonsuicidal Musculoskeletal: No joint swelling or deformity. Normal range of motion. - Labs CBC & Chem 7: 12/30/22 04:28 12/29/22 04:07 Labs: Abnormal Lab Results - Last 24 Hours (Table) 12/30/22 12/30/22 Range/Units 04:28 09:44 RBC 2.35 L (3.80-5.40) m/uL Hgb 7.7 L (11.4-16.0) gm/dL Hct 22.9 L (34.0-46.0) % Plt Count 125 L (150-450) k/uL Lymphocytes # 0.6 L (1.0-4.8) k/uL Crossmatch See Detail Assessment and Plan Assessment: Status post T12 to pelvis decompression surgery. Postoperative day 3 Chronic low back pain with moderate to severe sick lumbar spondylosis with stenosis. Acute blood loss anemia likely due to surgery. Hemoglobin is stable today. Status post 1 unit of PRBC. Hypothyroidism Hyperlipidemia GERD Osteoarthritis History of bladder surgery and cystitis DVT prophylaxis Prior history of smoking and vaping Plan: Patient be continued on pain management, bowel regimen and encourage incentive spirometry. Monitor H&H. Try to limit narcotic pain medications. Patient was started back on levothyroxine and follow up closely. PTOT consult. We will continue to follow closely and further recommendations based on the clinical course. Patient is being transferred to medical floor today. Time with Patient: Greater than 30
[2022-12-31] MEDS: oxyCODONE-APAP 7.5-325MG 1 EACH TAB PO PRN ×4 (04:01→20:24)
[2022-12-31] MEDS: LACTATED RINGERS 1,000 ML IV SCH (05:56)
[2022-12-31] MEDS: ACETAMINOPHEN TAB 325 MG TAB PO SCH ×3 (05:56→17:33)
[2022-12-31] MEDS: FERROUS SULFATE 325 MG TAB PO SCH ×2 (06:42→16:34)
[2022-12-31] MEDS: HEPARIN SODIUM,PORCINE 5,000 UNIT/ML 1 ML VIAL SQ SCH ×2 (08:22→20:25)
[2022-12-31] MEDS: SENNOSIDES-DOCUSATE SODIUM 1 EACH TAB PO SCH (08:22)
[2022-12-31] MEDS: MAGNESIUM HYDROXIDE 2,400 MG/30 ML CUP PO SCH (08:22)
[2022-12-31] MEDS: GABAPENTIN 300 MG CAP PO SCH ×3 (08:22→21:33)
--- NOTE | 2022-12-31 09:43 | P.PN ---
Subjective Progress Note Date: 12/31/22 Principal diagnosis: 1. T12-S1 STENOSIS, SEVERE WITH SEVERE SPONDYLOSIS 2. LUMBAR DEGENERATIVE SCOLIOSIS 3. NEUROGENIC CLAUDICATION 4. LOW BACK PAIN Patient was seen at bedside this morning lying semirecumbent position drain in place. Patient says she did try to use back brace yesterday, however, patient feels that the pain increased when she is in the back brace and it was very uncomfortable. Patient is looking forward to working with therapy later today. Patient says since she was transferred from ICU to the floor, she has been up walking couple times to use the bathroom. Patient says she has been urinating without issue. Patient denies any other problems at this time. Patient denies chest pain, fever, shortness breath, nausea, vomiting, change in vision, loss of bowel/bladder control. Objective - Vital Signs Vital signs: Vital Signs Temp 98.1 F 12/31/22 08:00 Pulse 107 H 12/31/22 08:00 Resp 16 12/31/22 08:00 BP 131/80 12/31/22 08:00 Pulse Ox 95 12/31/22 08:00 FiO2 Intake & Output 12/30/22 12/31/22 12/31/22 18:59 06:59 18:59 Intake Total 310 Output Total 0 Balance 310 0 Weight 92 kg Intake: Blood Product 310 Rc As-1 Unit 310 [id number] Output: Urine 0 Other: Voiding Method Toilet Toilet # Voids 1 2 ABP, PAP, CO, CI - Last Documented Arterial Blood Pressure 90/48 - Exam drain is in place with moderate output overnight. Drain to be kept at gravity at this time. Plan for drain removal tomorrow and dressing changes. There is some tenderness to palpation over incision on spine. Nontender to palpation throughout rest of exam. Sensation is equal, symmetric, bilaterally intact throughout the upper and lower extremities. Patient does have limited range of motion throughout bilateral lower extremities on exam secondary to referred pain to the back. Patient has full range of motion throughout bilateral upper extremities on exam. 5/5 in all major motor groups in bilateral upper extremities. 4-/5 in all major motor groups in bilateral lower extremities. Radial pulses intact, 2+ bilaterally. Cap refill under 3 seconds in digits the upper extremities. Negative Homans bilaterally. Negative Swapna bilaterally. Negative clonus bilaterally. - Labs CBC & Chem 7: 12/30/22 04:28 12/29/22 04:07 Labs: Abnormal Lab Results - Last 24 Hours (Table) 12/30/22 Range/Units 09:44 Crossmatch See Detail Assessment and Plan Assessment: 1. T12-S1 STENOSIS, SEVERE WITH SEVERE SPONDYLOSIS 2. LUMBAR DEGENERATIVE SCOLIOSIS 3. NEUROGENIC CLAUDICATION 4. LOW BACK PAIN - Postop day #4 status post [id number] decompression and fusion Plan: 1. T12-S1 STENOSIS, SEVERE WITH SEVERE SPONDYLOSIS; LUMBAR DEGENERATIVE SCOLIOSIS; NEUROGENIC CLAUDICATION; LOW BACK PAIN - surgery performed 12/27/2022 T10 to pelvis decompression and fusion. Patient stable at bedside this morning. Drain is in place. There has been moderate output overnight. I have moved drain to gravity. Drain is to be kept to gravity.. No compression/suction. Plan for drain removal tomorrow. Pain medication as need ed. Weight-bear as tolerated with walker and assistance as needed. Plan for discharge home within the next few days. We'll continue to follow the patient during her stay in hospital. 2. Appreciate medical management 3. Pain management - [place]; oxycodone; gabapentin; Flexeril 4. DVT prophylaxis - heparin 5. GI prophylaxis - milk of mag; senna 6. PT/OT - weightbearing as tolerated 7. Encourage incentive spirometer use 8. Discharge planning - Plan for discharge home within the next few days Time with Patient: Less than 30
[2022-12-31 09:53] LABS: Basophils # (A) 0.01 X 10*3/uL (0.00-0.10); Basophils % (A) 0.1 %; Eosinophils # (A) 0.05 X 10*3/uL (0.04-0.35); Eosinophils % (A) 0.7 %; HCT 26.5 % (37.2-46.3); HGB 8.7 d/dL (12.0-15.0); Lymphocytes # (A) 0.87 X 10*3/uL (0.90-5.00); Lymphocytes % (A) 11.8 %; MCH 31.1 pg (27.0-32.0); MCHC 32.8 d/dL (32.0-37.0); MCV 94.6 FL (80.0-97.0); Monocytes # (A) 0.87 X 10*3/uL (0.20-1.00); Monocytes % (A) 11.8 %; NRBC Per 100 WBC 0 X 10*3/uL (0.00-0.01); Neutrophils # (A) 5.46 X 10*3/uL (1.80-7.70); Neutrophils % (A) 74.4 %; Platelet Count 179 X 10*3/uL (140-440); RDW 16.1 % (11.5-14.5); WBC 7.35 X 10*3/uL (4.50-10.00)
[2022-12-31 10:43] LABS: Calcium 7.5 mg/dL (8.7-10.3); Carbon Dioxide 25.5 mmol/L (21.6-31.8); Chloride 104 mmol/L (96-109); Glucose 97 mg/dL (70-110); Potassium 4.5 mmol/L (3.5-5.5); Sodium 137 mmol/L (135-145)
[2022-12-31] MEDS ORDERED: ALPRAZolam 0.5 MG TAB PO PRN (14:04)
--- NOTE | 2022-12-31 14:29 | P.PN ---
Subjective Progress Note Date: 12/31/22 I am seeing this patient in new consultation today 12/28/2022 in the intensive care unit postoperative day #1 following a T10 to pelvis decompression and fusion. Patient is a 72-year-old white female with past medical history significant for chronic lower back pain, cystitis, hyperlipidemia, hypothyroid ism. Patient has been having symptoms of chronic lower back pain that radiates down her bilateral lower legs over the last couple years. This is accompanied with bilateral lower extremity weakness and numbness. She also complained of some intermittent urinary incontinence, however, has a history of chronic cystitis. Patient underwent an elective T10 to pelvis decompression and fusion yesterday. There were no immediate perioperative complications reported. Patient did have an EBL of approximately 1.5 L. She did receive 1 unit PRBC intraoperatively. She also received some TXA. Patient extubated in recovery, and was transferred to the intensive care unit. Patient is currently lying supi ne in bed, on 2 L/m nasal cannula, in no acute distress. She is reporting some postsurgical incisional pain. She is able to move bilateral lower extremities, strength 5 out of 5. Neurovascular status appears intact. There are 2 Hemovacs with minimal sanguinous output. Most recent preoperative CBC shows a WBC count of 5.7, hemoglobin 14.7, hematocrit 44.4, platelets 207. Preoperative BMP was unremarkable. Lactate Ringer's is infusing at 20 ML's per hour. There is an indwelling urinary catheter, urine output is marginal. Blood pressure is borderline hypotensive. No vasopressors have been needed so far. Follow-up lumbar CT is pending. Patient will be monitored in the intensive care unit at least overnight. On today's evaluation of 12/29/2022, the patient is still in the intensive care unit and the patient is currently postop day #2 following her spine surgery which involved decompression and fusion T10 to pelvis. Noted that hemoglobin is stable. Her current hemoglobin of 8.3 compared to 8.0 from yesterday. Hemodynamically stable. No hypotension. She is on room air oxygen. She is having issues still with pain and she'll be switched to Percocet and Dilaudid will be discontinued. CAT scan of the thoracic and the lumbar spine was done yesterday that showed postop changes with adequate alignment. No complications noted. The white suppositive 7, sodium levels of 136 and the potassium levels of 4.3. She has compression devices to lower extremity for DVT prophylaxis. 12/30 2022, the patient is postop day #3. Surgical wound site is clean and intact. The drains are still in place. Output from the drains are in the order of 1 90 mL overnight from the lower drains, 0 from the upper drain. Hemodynamically stable. No hypotension. She is complaining of some soreness. Nevertheless, she is able to move around with help of a walker. She has a back brace available to her. In terms of respiratory status, lotions vaccination the patient is currently on room air oxygen. Hemoglobin is at 7.7, white cycles at 7.9, platelet count is at 125. Sodium levels of 136. In terms of pain control, she is on Percocet as needed. Dilaudid was discontinued. She is taking Senokot for bowel motility. She is on Flexeril. She is on heparin subcu for DVT prophylaxis. On 12/31/2022, the patient is postoperative day #4. The patient was transferred from the intensive care unit to the floor yesterday. She is walking and she was able to go to the bathroom. She is also requiring assistance. She has a back brace and the walker. No new complaints. Pain is under adequate control. The drains are still in place and the surgical team is managing the drains. Motor function is adequate lower extremity motor power is 4 out of 5 and normal motor function upper extremities. No new labs from today. She is on room air oxygen. Objective - Vital Signs Vital signs: Vital Signs Temp 98.1 F 12/31/22 08:00 Pulse 107 H 12/31/22 09:59 Resp 16 12/31/22 09:59 BP 131/80 12/31/22 08:00 Pulse Ox 95 12/31/22 08:00 FiO2 Intake & Output 12/30/22 12/31/22 12/31/22 18:59 06:59 18:59 Intake Total 310 500 Output Total 0 0 Balance 310 0 500 Weight 92 kg Intake: Oral 500 Blood Product 310 Rc As-1 Unit 310 [id number] Output: Urine 0 0 Other: Voiding Method Toilet Toilet Toilet # Voids 1 2 2 ABP, PAP, CO, CI - Last Documented Arterial Blood Pressure 90/48 - Labs CBC & Chem 7: 12/31/22 05:38 12/31/22 05:38 Labs: Abnormal Lab Results - Last 24 Hours (Table) 12/30/22 12/31/22 12/31/22 Range/Units 09:44 05:38 05:38 RBC 2.80 L (4.10-5.20) X 10*6/uL Hgb 8.7 L (12.0-15.0) d/dL Hct 26.5 L (37.2-46.3) % RDW 16.1 H (11.5-14.5) % Lymphocytes # 0.87 L (0.90-5.00) X 10*3/uL Creatinine 0.5 L (0.6-1.5) mg/dL Calcium 7.5 L (8.7-10.3) mg/dL Crossmatch See Detail Assessment and Plan Assessment: Postoperative day #3 following a T10 to pelvis decompression and fusion. No immediate perioperative complications reported. Moderate to severe thoracic-lumbar spondylosis with stenosis Postoperative hypotension, possibly related to acute blood loss, patient hesitated total of 3 units of packed RBC and the most recent hemoglobin is at 8.7 Hypothyroidism History of hyperlipidemia Plan: The patient is clinically stable and she was moved out of the intensive care unit Clinically stable. Will monitor the hemoglobin and hemoglobin is stable at 8.7 No active bleeding. Management of the drains will be left up to the surgeon. I believe the drains be taken out within the next 24 hours. The patient has received a total of 3 units of packed RBC during this current admission Patient is currently on room air oxygen and she is using the incentive spirometer Hemoglobin is stable Blood pressure is stable IV fluids to KVO Pain control with Percocet compression devices to lower extremities The patient will need a back brace The patient has a Hemovac drain 2 and her back. CAT scan of the lumbar spine shows postsurgical changes with well alignment The patient should be able to transfer to a medical surgical floor today. Synthroid restarted Patient can be transferred to medical surgical floor. She has a TLSO brace and she has a walker the bedside We will sign off the case and leave the rest of the management to the surgical team.
[2022-12-31] MEDS: LEVOTHYROXINE 125 MCG TAB PO SCH (20:24)
--- NOTE | 2022-12-31 21:35 | PN ---
PROGRESS NOTE DATE OF SERVICE: 12/31/2022 SUBJECTIVE: This is a 72-year-old woman who was admitted after T10 to pelvis decompression and fusion, is being closely monitored. No chest pain, no palpitation. OBJECTIVE: VITAL SIGNS: Pulse is 106, blood pressure 131/82, respirations 16. CHEST: Few scattered rhonchi. ABDOMEN: Soft. NERVOUS SYSTEM: No focal deficits. LABORATORY DATA: Hemoglobin 8.3. ASSESSMENT: 1. Status post T10 to pelvis decompression and fusion. 2. Chronic low back pain. 3. Hypothyroidism. 4. Gastroesophageal reflux disease. 5. Hyperlipidemia. 6. Multiple medical issues. RECOMMENDATIONS: Recommended to continue current management, continue symptomatic treatment. Otherwise, I would recommend repeat CBC in the morning. DVT prophylaxis. Incentive spirometry. Closely follow. Further recommendations to follow. MMODL / IJN: [id number] /
[2023-01-01] MEDS: ACETAMINOPHEN TAB 325 MG TAB PO SCH ×4 (00:13→17:12)
[2023-01-01] MEDS: oxyCODONE-APAP 7.5-325MG 1 EACH TAB PO PRN ×4 (02:05→18:25)
[2023-01-01] MEDS: LACTATED RINGERS 1,000 ML IV SCH (05:34)
[2023-01-01] MEDS: FERROUS SULFATE 325 MG TAB PO SCH ×2 (06:30→17:20)
[2023-01-01 08:00] LABS: Basophils % (A) 0 %; Eosinophils # (A) 0.1 k/uL (0-0.7); Eosinophils % (A) 1 %; HCT 29.5 % (34.0-46.0); Lymphocytes # (A) 0.8 k/uL (1.0-4.8); Lymphocytes % (A) 12 %; MCHC 33.1 g/dL (31.0-37.0); MCV 96.4 fL (80.0-100.0); Mean Platelet Volume 7.8; Monocytes # (A) 0.6 k/uL (0-1.0); Monocytes % (A) 8 %; Neutrophils % (A) 74 %; Platelet Count 248 k/uL (150-450); RBC 3.06 m/uL (3.80-5.40); RDW 15.3 % (11.5-15.5); WBC 6.8 k/uL (3.8-10.6)
[2023-01-01 08:10] LABS: HGB 9.8 gm/dL (11.4-16.0)
[2023-01-01] MEDS: GABAPENTIN 300 MG CAP PO SCH ×2 (08:21→17:20)
[2023-01-01] MEDS: CYCLOBENZAPRINE 5 MG TAB PO PRN (08:25)
[2023-01-01] MEDS: SENNOSIDES-DOCUSATE SODIUM 1 EACH TAB PO SCH (08:25)
[2023-01-01] MEDS: MAGNESIUM HYDROXIDE 2,400 MG/30 ML CUP PO SCH (08:25)
[2023-01-01] MEDS: HEPARIN SODIUM,PORCINE 5,000 UNIT/ML 1 ML VIAL SQ SCH (08:26)
[2023-01-01 10:03] VITALS: RESP 18
[2023-01-01] MEDS: HYDROcodone/APAP 10-325MG 1 EACH TAB PO PRN (11:04)
[2023-01-01] MEDS ORDERED: LACTULOSE 20 GM/30 ML CUP PO ONE (12:17)
[2023-01-01] MEDS ORDERED: bisacodyL 10 MG SUPP RECTAL STA (12:18)
--- NOTE | 2023-01-01 13:07 | P.PN ---
Subjective Progress Note Date: 01/01/23 Principal diagnosis: Status post [id number] decompression and fusion Patient was evaluated today, she is resting comfortably in her hospital bed. Patient's stable today at bedside. Patient is yet to have a bowel movement, she is passing gas at this time. We have been utilizing magnesia and senna S. She has been up and ambulating well. Pain is controlled currently. She denies headache, lightheadedness, chest pain or shortness of breath. Objective - Vital Signs Vital signs: Vital Signs Temp 97.8 F 01/01/23 07:54 Pulse 94 01/01/23 07:54 Resp 18 01/01/23 07:54 BP 170/95 01/01/23 07:54 Pulse Ox 96 01/01/23 07:54 FiO2 Intake & Output 12/31/22 01/01/23 01/01/23 18:59 06:59 18:59 Intake Total 700 Output Total 0 270 Balance 700 -270 Weight 92 kg Intake: Oral 700 Output: Drainage 270 Lower Back 270 Urine 0 Other: Voiding Method Toilet Toilet # Voids 3 3 1 ABP, PAP, CO, CI - Last Documented Arterial Blood Pressure 90/48 - Exam Gen: AOx3, NAD VSS stable at this time Integument: Postoperative dressings were removed and changed today at bedside, debbie are all in good position and condition, there is no drainage visualized there is no erythema. The Hemovac drain was also removed today. Palpation: Mild tenderness with palpation of the paraspinal region lower thoracic and jeremiah mbar spine ROM: Full range of motion in all major muscle groups in the bilateral upper extremities, no focal deficits appreciated Full range of motion in all major muscle groups of bilateral lower extremities, no focal deficits appreciated Sensory Exam: Senory exam to light touch is intact C5-T1 Senosry exam to light touch is intact L2-S1 Motor: 5/5 strength appreciated in the bilateral upper extremities with shoulder elevation, shoulder abduction, elbow extension, elbow flexion, wrist extension, wrist flexion, 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 4-/5 strength appreciated in the bilateral lower extremities with hip flexion, knee extension, knee flexion, dorsiflexion, EHL, FHL Reflexes: 2/4 in all UE and LE Negative Swapna's bilaterally Negative Babinski bilaterally Negative clonus bilaterally Special Test: Negative straight leg raise bilaterally - Labs CBC & Chem 7: 01/01/23 06:58 12/31/22 05:38 Labs: Abnormal Lab Results - Last 24 Hours (Table) 01/01/23 Range/Units 06:58 RBC 3.06 L (3.80-5.40) m/uL Hgb 9.8 L D (11.4-16.0) gm/dL Hct 29.5 L (34.0-46.0) % Lymphocytes # 0.8 L (1.0-4.8) k/uL Assessment and Plan Assessment: Postoperative day #5 status post T10 to pelvis decompression and fusion Acute blood loss anemia, expected surgical outcome, stable Constipation Other medical comorbidities Plan: Pain control, continue with Percocet 7.5 mg/325 mg, gabapentin and Flexeril. Plan to send his medications and her pharmacy with the possibility of discharged home today. Lactulose was given today, she is also remained on milk of magnesia and senna for constipation Activity instructions are discussed the patient, this to include up and out of bed for all meals. TLSO brace when up and ambulating, she can ambulate around the room with a walker until brace is delivered. No bending, twisting or lifting. We discussed leg lifting exercises to utilize while in bed Weight-bear as tolerated, utilize a walker at all times PT/OT evaluation DVT prophylaxis, heparin 5000 units every 12 hours while inpatient Hemoglobin remains stable, plan for discharge home on ferrous sulfate 325 mg twice a day Other medical specialists recommendations appreciated Discharge planning: If patient is able to have a bowel movement today, patient stable for discharge to home. Postoperative medications will be sent to pharmacy on 01/01/2023 Time with Patient: Less than 30
[2023-01-01 15:17] VITALS: BP 138/85; PULSE 97; TEMP 99.3
--- NOTE | 2023-01-01 17:02 | PN ---
PROGRESS NOTE DATE OF SERVICE: 01/01/2023 SUBJECTIVE: This is a 72-year-old woman, who underwent . No chest pain. No palpitations. No fever. OBJECTIVE: VITAL SIGNS: Pulse is 97, blood pressure 133/80, respirations 18. CHEST: Clear to auscultation. CARDIOVASCULAR: S1, S2 normal. ABDOMEN: Soft. NERVOUS SYSTEM: No focal deficits. LABORATORY DATA: Hemoglobin 9.8. ASSESSMENT: 1. Status post T10 to pelvis decompression and fusion. 2. Chronic low back pain. 3. Hypothyroidism. 4. Gastroesophageal reflux disease. 5. Hyperlipidemia. 6. Multiple medical issues. RECOMMENDATIONS: Recommend to continue current management, continue symptomatic treatment. Continue DVT prophylaxis, incentive spirometry. Continue the pain management. Further recommendations to follow. MMODL / IJN: [id number] / [email or web address]
--- NOTE | 2023-01-04 14:57 | P.DS ---
Providers Date of admission: 12/27/22 07:31 Expected date of discharge: 01/01/23 Attending physician: Caleb Cosme DO Consults: 12/27/22 16:46 Consult Physician Routine Consulting Provider: Urvashi Mendes Consult Reason/Comments: ICU management Do you want consulting provider notified?: Already Contacted 12/29/22 07:46 Consult Physician Routine Consulting Provider: Ramana Xie Consult Reason/Comments: Medical Management Do you want consulting provider notified?: Yes Primary care physician: Ramana Xie Hospital Course: Date of admission: 12/27/2022 Date of discharge: 01/01/2023 Admission diagnosis: Status post [id number] decompression and fusion Discharge diagnosis: Same Attending physician: Dr. Cosme Surgical procedures: [id number] decompression and fusion Brief history: Patient is a 72-year-old female who has been following with Dr. Cosme in the outpatient setting with regards to chronic low back pain. After workup, was determined the patient had significant scoliosis along with stenosis from L1-S1. Conservative measures were initially tried, she was then scheduled for an elective T10 to pelvis decompression and fusion. Hospital course: Details of patient's surgery can be found in operative report. Patient tolerated the procedure well and was subsequently transported initially to the ICU due to the length of surgery and intubation time, she was then transferred to a medical/surgical floor when stable. Patient's orthopeidc and medical care was provided daily. Patient had daily laboratory tests performed for evaluation of overall blood counts. Patient had daily physical therapy to include strengthening range of motion as well as education with walker ambulation. Patient was treated with heparin for their postoperative DVT prophylaxis during their inpatient stay. Patient was noted to have a relatively uneventful postoperative course. Patient reported satisfactory pain control with oral pain medications by postoperative day 2. Patient showed satisfactory progress with physical therapy. Patient moved steadily through the program and had no difficulty meeting the goals by postoperative day 5. Given patient's otherwise satisfactory course and having met physical therapy goals, plan is to discharge patient [home] on postoperative day 5. Discharge condition/disposition: Patient will be discharged [home] in stable condition. Discharge medications: Instructions are given on resumption of patient's normal daily medications per primary care recommendation, in addition patient will be prescribed Percocet 7.5 mg/325 mg, gabapentin 300 mg, Flexeril 10 mg, sulfate 325 mg, Duricef 5 mg, senna S, MiraLAX 17 g,. Spine Discharge and Recovery Instructions All medication refills should be obtained through your primary care doctor or your clinic spine surgeon. Please discuss prescription refills at your follow up appointment. Do not call the hospital for medication refills. Dressing: Leave your dressing in place for a total of 5 days post operatively. Then you may remove your dressing and leave open to air. Keep the area clean and if not able to keep area clean, then cover with sterile gauze and tape. Showering: You may shower 3 days after your procedure allowing soap and water to run over incision. Do not scrub. Do not soak. Blot dry. Follow up: Please confirm a follow up appointment with your surgeon 3 weeks post operatively. Please make an appointment to follow up with your PCP in 1-2 weeks after surgery for evaluation 3 phase, 3-week plan POST OP WEEKS 1-3 1. Lifting/carrying/pushing/pulling limited to less than 5 pounds. 2. Do not sit for longer than 15 minutes at one time. Get up and walk around. Prolonged sitting is NOT advised. If you lay down, see if you can tolerate laying down on you front (belly side) 3. Walk for periods of 15 minutes = 1 mile but no longer; do it multiple times times each day. 4. Ice your low back after activity. POST OP WEEKS 3-6 1. Lifting limited to less than 20 pounds. 2. Do not sit for longer than 30 minutes at a time. Frequently change positions. Use a sit-to stand workstation or take frequent breaks from sitting if you have returned to work. 3. Walk for 30 minutes each day. If possible, do these three or more times a day POST OP WEEKS 6+ At your 6-week appointment we will give you a physical therapy referral to focus on a core stabilization and strengthening program. You should also work on leg & buttock strengthening, hamstring & quadriceps stretching, and continue a low impact aerobic activity program such as swimming, walking, or riding a stationary bicycle. During the initial 6 weeks after your surgery, you are at the highest risk of re-injuring your spine. You should generally avoid BLTs (bending, lifting and twisting combination motions) and follow the above guidelines to reduce the goddard ce of reinjury. You can anticipate post op appointments in our office at approximately 3 weeks and 6 weeks after your surgery. INCISION CARE: If your incision is not draining you do NOT need to cover it with a dressing. Keep your incision clean, dry and intact. In most cases, we apply skin glue, debbie or sutures to the incision at the time of surgery. This will be like a crust or have the appearance of a scab and will fall off in time on its own. The stitches or debbie need to be removed at 3 weeks post op appointment. You may begin to shower 3 days after surgery (this allows the glue to pan well). However, please avoid scrubbing the incision site or peeling off any of the skin glue. This will ensure optimal healing of your incision. Also, during this time avoid soaking the incision area in water - this includes swimming pools, hot tubs or baths. No ointments, lotions or oils on the incision until your surgeon allows. Leave debbie, sutures or glue in place. Neurological dysfunction that comes on suddenly can also be a sign of a stroke. Below some common symptoms of a stroke are listed: B - balance difficulty such as sudden onset walking or leaning to one side - NEW E - eye problem such as sudden double vision or trouble seeing on one side - NEW F - Facial weakness or numbness on one side - NEW A - Arm or leg weakness or numbness on one side - NEW S - Slurred speech or difficulty with word finding - NEW T - Time is BRAIN! Call 911 as soon as you recognize these symptoms Diet: Consume a regular diet rich in vegetables and lean protein such as chicken or fish. You should consume in a ratio of approximately 20% fats|40% carbohydrates|40%protein. Vegetables, sweet potatoes, brown rice or quinoa are examples of good carbohydrates. Chips, white bread, cookies and sweets/sugar are examples of bad carbohydrates. Limit your bad carbs, go wild with good carbs. "Life's Simple 7" Guidelines as per [place] [employer] These will help you reclaim your life after surgery and splitting machine operator helper in your recovery, keeping in mind your restrictions. (1) Get Active. Physical activity can help people lose weight, control high blood pressure and cholesterol, feel emotionally better, and sleep better. (2) Control Cholesterol. Avoid a diet high in saturated fat, trans fat, & cholesterol. Limit whole milk & cream, ice cream, butter, egg yolks, processed meats (like sausage and hot dogs), and fatty meats. Choose healthy foods that are low in saturated fat, trans fat and cholesterol which include: Fruits and vegetables, fiber rich grain products (like whole grain pasta and brown rice), lean meat such as chicken, fish, nuts, seeds, and legumes. (3) Eat Better. Eat small portions. Shop at the grocery with a list and do not stray from it. Tips for a healthy diet include: Limit sodium intake to less than 1500mg daily, avoid prepackaged, processed, and fast foods, choose a diet rich in fruits, vegetables, and whole grain, high fiber foods, and limit saturated & cholesterol in your diet. (4) Manage Blood Pressure. If you have high blood pressure, you should have a cuff at home so that you can check your blood pressure regularly. Be sure you have a good cuff. An arm one is generally better than a wrist one. Bring the cuff to a doctor's appointment to validate that the measurements that your cuff are taking are accurate. Take your blood pressure twice daily when you are sitting down and relaxing. Record the numbers in a log and bring this log with you to your doctors' appointments. (5) Lose Weight if your BMI is above 25. A healthy BMI is between 19-25. To calculate Your BMI, you may use a Standard BMI Calculator on the NIH BMI website: <www.nhlbi.nih.gov/guidelines/obesity/BMI/bmicalc.htm>. Weigh oneself daily. If you are overweight, set a goal to lose weight. A pound a week loss if needed is a good target. (6) Reduce Blood Sugar. Limit foods and liquids with "added sugars." (Added sugars include sucrose, fructose, glucose, maltose, dextrose, high fructose corn syrup, corn syrup, concentrated fruit juice and honey). (7) Stop Smoking. If you smoke, quitting smoking is one of the best things that you can do for your health. Smoking increases your risk of heart attack, stroke, and peripheral vascular disease, which is a build-up of plaque in your arteries. Please discard all the cigarettes and lighters in your house. Have a plan for what you will do when you have the urge to smoke. Direct and second- hand smoke shortens your life as well as the lives of your family, friends and others around you. For your health and the health of those around you, please consider quitting! Proper Bending Body Mechanics: Maintain a wide stance with one foot slightly in front of the other. Keep your back straight. Bend utilizing the strength in your hips and knees. Do not bend at the waist. Maintain the lifted object at your waist-level close to your body. Avoid lifting weight that causes immediately pain or pain anywhere in the body afterwards. Smoking/Nicotine If there was ever one thing that you could do to increase your overall health, decrease your risk of cardiovascular problems by about 39% the second you make the choice, it is to STOP SMOKING. Your body's most instant gratification is the second you stop smoking. We have all heard the studies, read the articles but it is true, smoking is extremely bad for your overall health, and moreover it is detrimental to your bone health. Nicotine, IN ANY FORM, kills bone cells, prevents your body from healing fractures, and significantly prolongs healing after surgery. In spine surgery specifically, it increases your risk of not healing your bones to create a fusion and increases your risk of having a revision surgery due to this up to 60%. I know it is hard. I know it feels impossible. But there are ways. Take control of your life. We are here to help you through it. And when you are ready, ask us and we can direct you to help if you desire. Use the START Plan to Quit Smoking (please visit the Helpguide.org website listed below for more information): S = Set a quit date. Choose a date within the next 2 weeks, so you have enough time to prepare without losing your motivation to quit. If you mainly smoke at work, quit on the weekend, so you have a few days to adjust to the change. T = Tell family, friends, and co-workers that you plan to quit. Let your friends and family in on your plan to quit smoking and tell them you need their support and encouragement to stop. Look for a quit shanna who wants to stop smoking as well. You can help each other get through the rough times. A = Anticipate and plan for the challenges you'll face while quitting. Most people who begin smoking again do so within the first 3 months. You can help yourself make it through by preparing ahead for common challenges, such as nicotine withdrawal and cigarette cravings. R = Remove cigarettes and other tobacco products from your home, car, and work. Throw away all your cigarettes (no emergency pack!), lighters, ashtrays, and matches. Wash your clothes and freshen up anything that smells like smoke. Shampoo your car, clean your drapes and carpet, and steam your furniture. T = Talk to your doctor about getting help to quit. Your doctor can prescribe medication to help with withdrawal and suggest other alternatives. If you can't see a doctor, you can get many products over the counter at your local pharmacy or grocery store, including the nicotine patch, nicotine lozenges, and nicotine gum. Resources for Quitting Smoking: <https://www.[place].gov/documents/[facility]/Quit_Tobacco_Resources_for_patients_313 480_7.pdf> Supplementation: Take recommended dosages of Vitamin D and Calcium to help fortify your bones and help them to heal. See your health maintenance packet for dosages and recommended levels. DVT/VTE prophylaxis: You will be given compression stockings from the hospital. Wear these daily for the first two weeks after surgery. You may take them off at night. You may be prescribed a medication to help thin your blood. Take this as directed. If you are not prescribed this medication, early and frequent ambulation has been shown to be the best prophylaxis to deep vein thrombosis and sequelae related to this event. Procedures: [id number] decompression and fusion Plan - Discharge Summary Discharge Rx Participant: No New Discharge Prescriptions: New Gabapentin 300 mg PO TID #60 cap polyethylene glycoL 3350 [Miralax] 17 gm PO DAILY PRN #21 packet PRN Reason: Constipation oxyCODONE HCL/ACETAMINOPHEN [Percocet 7.5-325 mg] 1 tab PO Q4HR PRN 7 Days #42 tab PRN Reason: Pain cefaDROXiL [Duricef] 500 mg PO Q12HR 5 Days #10 cap Cyclobenzaprine [Flexeril] 5 mg PO BID PRN #30 tablet PRN Reason: Muscle Spasm Ferrous Sulfate [Iron (65 MG Elemental)] 325 mg PO BID #60 tab Sennosides/Docusate Sodium [Senna-S 8.6-50 mg Tablet] 2 each PO DAILY PRN #30 tablet PRN Reason: Constipation No Action Ferrous Sulfate [Slow Fe] 142 mg PO MO Levothyroxine Sodium 125 mcg PO HS Pentosan Polysulfate Sodium [Elmiron] 100 mg PO TID ALPRAZolam [Xanax] 0.5 mg PO DAILY PRN PRN Reason: Anxiety HYDROcodone/APAP 5-325MG [[place] 5-325] 1 tab PO DAILY PRN PRN Reason: Pain Ergocalciferol [Vitamin D2 (1250 Mcg = 34373 Iu)] 1 tab PO MO Itzel(Unk) 2 tab PO DAILY Discharge Medication List Ferrous Sulfate [Slow Fe] 142 mg PO MO 03/12/20 [History] Levothyroxine Sodium 125 mcg PO HS 03/12/20 [History] Pentosan Polysulfate Sodium [[place]miron] 100 mg PO TID 03/12/20 [History] ALPRAZolam [Xanax] 0.5 mg PO DAILY PRN 12/21/22 [History] Itzel(Unk) 2 tab PO DAILY 12/21/22 [History] Ergocalciferol [Vitamin D2 (1250 Mcg = 77788 Iu)] 1 tab PO MO 12/21/22 [History] HYDROcodone/APAP 5-325MG [[place] 5-325] 1 tab PO DAILY PRN 12/21/22 [History] Cyclobenzaprine [Flexeril] 5 mg PO BID PRN #30 tablet 01/01/23 [Rx] Ferrous Sulfate [Iron (65 MG Elemental)] 325 mg PO BID #60 tab 01/01/23 [Rx] Gabapentin 300 mg PO TID #60 cap 01/01/23 [Rx] Sennosides/Docusate Sodium [Senna-S 8.6-50 mg Tablet] 2 each PO DAILY PRN #30 tablet 01/01/23 [Rx] cefaDROXiL [Duricef] 500 mg PO Q12HR 5 Days #10 cap 01/01/23 [Rx] oxyCODONE HCL/ACETAMINOPHEN [Percocet 7.5-325 mg] 1 tab PO Q4HR PRN 7 Days #42 tab 01/01/23 [Rx] polyethylene glycoL 3350 [Miralax] 17 gm PO DAILY PRN #21 packet 01/01/23 [Rx] Follow up Appointment(s)/Referral(s): [facility], [NON-STAFF] - As Needed Goodmanson,Caleb, DO [Doctor of Osteopathic Medicine] - 1 Week Activity/Diet/Wound Care/Special Instructions: Spine Discharge and Recovery Instructions All medication refills should be obtained through your primary care doctor or your clinic spine surgeon. Please discuss prescription refills at your follow up appointment. Do not call the hospital for medication refills. Dressing: Leave your dressing in place for a total of 5 days post operatively. Then you may remove your dressing and leave open to air. Keep the area clean and if not able to keep area clean, then cover with sterile gauze and tape. Showering: You may shower 3 days after your procedure allowing soap and water to run over incision. Do not scrub. Do not soak. Blot dry. Follow up: Please confirm a follow up appointment with your surgeon 3 weeks post operatively. Please make an appointment to follow up with your PCP in 1-2 weeks after surgery for evaluation 3 phase, 3-week plan POST OP WEEKS 1-3 1. Lifting/carrying/pushing/pulling limited to less than 5 pounds. 2. Do not sit for longer than 15 minutes at one time. Get up and walk around. Prolonged sitting is NOT advised. If you lay down, see if you can tolerate laying down on you front (belly side) 3. Walk for periods of 15 minutes = 1 mile but no longer; do it multiple times times each day. 4. Ice your low back after activity. POST OP WEEKS 3-6 1. Lifting limited to less than 20 pounds. 2. Do not sit for longer than 30 minutes at a time. Frequently change positions. Use a sit-to stand workstation or take frequent breaks from sitting if you have returned to work. 3. Walk for 30 minutes each day. If possible, do these three or more times a day POST OP WEEKS 6+ At your 6-week appointment we will give you a physical therapy referral to focus on a core stabilization and strengthening program. You should also work on leg & buttock strengthening, hamstring & quadriceps stretching, and continue a low impact aerobic activity program such as swimming, walking, or riding a stationary bicycle. During the initial 6 weeks after your surgery, you are at the highest risk of re-injuring your spine. You should generally avoid BLTs (bending, lifting and twisting combination motions) and follow the above guidelines to reduce the chance of reinjury. You can anticipate post op appointments in our office at approximately 3 weeks and 6 weeks after your surgery. INCISION CARE: If your incision is not draining you do NOT need to cover it with a dressing. Keep your incision clean, dry and intact. In most cases, we apply skin glue, debbie or sutures to the incision at the time of surgery. This will be like a crust or have the appearance of a scab and will fall off in time on its own. The stitches or debbie need to be removed at 3 weeks post op appointment. You may begin to shower 3 days after surgery (this allows the glue to pan well). However, please avoid scrubbing the incision site or peeling off any of the skin glue. This will ensure optimal healing of your incision. Also, during this time avoid soaking the incision area in water - this includes swimming pools, hot tubs or baths. No ointments, lotions or oils on the incision until your surgeon allows. Leave debbie, sutures or glue in place. Neurological dysfunction that comes on suddenly can also be a sign of a stroke. Below some common symptoms of a stroke are listed: B - balance difficulty such as sudden onset walking or leaning to one side - NEW E - eye problem such as sudden double vision or trouble seeing on one side - NEW F - Facial weakness or numbness on one side - NEW A - Arm or leg weakness or numbness on one side - NEW S - Slurred speech or difficulty with word finding - NEW T - Time is BRAIN! Call 911 as soon as you recognize these symptoms Diet: Consume a regular diet rich in vegetables and lean protein such as chicken or f joie. You should consume in a ratio of approximately 20% fats|40% carbohydrates|40%protein. Vegetables, sweet potatoes, brown rice or quinoa are examples of good carbohydrates. Chips, white bread, cookies and sweets/sugar are examples of bad carbohydrates. Limit your bad carbs, go wild with good carbs. "Life's Simple 7" Guidelines as per [place] [employer] These will help you reclaim your life after surgery and splitting machine operator helper in your recovery, keeping in mind your restrictions. (1) Get Active. Physical activity can help people lose weight, control high blood pressure and cholesterol, feel emotionally better, and sleep better. (2) Control Cholesterol. Avoid a diet high in saturated fat, trans fat, & cholesterol. Limit whole milk & cream, ice cream, butter, egg yolks, processed meats (like sausage and hot dogs), and fatty meats. Choose healthy foods that are low in saturated fat, trans fat and cholesterol which include: Fruits and vegetables, fiber rich grain products (like whole grain pasta and brown rice), lean meat such as chicken, fish, nuts, seeds, and legumes. (3) Eat Better. Eat small portions. Shop at the grocery with a list and do not stray from it. Tips for a healthy diet include: Limit sodium intake to less than 1500mg daily, avoid prepackaged, processed, and fast foods, choose a diet rich in fruits, vegetables, and whole grain, high fiber foods, and limit saturated & cholesterol in your diet. (4) Manage Blood Pressure. If you have high blood pressure, you should have a cuff at home so that you can check your blood pressure regularly. Be sure you have a good cuff. An arm one is generally better than a wrist one. Bring the cuff to a doctor's appointment to validate that the measurements that your cuff are taking are accurate. Take your blood pressure twice daily when you are sitting down and relaxing. Record the numbers in a log and bring this log with you to your doctors' appointments. (5) Lose Weight if your BMI is above 25. A healthy BMI is between 19-25. To calculate Your BMI, you may use a Standard BMI Calculator on the NIH BMI website: <www.nhlbi.nih.gov/guidelines/obesity/BMI/bmicalc.htm>. Weigh oneself daily. If you are overweight, set a goal to lose weight. A pound a week loss if needed is a good target. (6) Reduce Blood Sugar. Limit foods and liquids with "added sugars." (Added sugars include sucrose, fructose, glucose, maltose, dextrose, high fructose corn syrup, corn syrup, concentrated fruit juice and honey). (7) Stop Smoking. If you smoke, quitting smoking is one of the best things that you can do for your health. Smoking increases your risk of heart attack, stroke, and peripheral vascular disease, which is a build-up of plaque in your arteries. Please discard all the cigarettes and lighters in your house. Have a plan for what you will do when you have the urge to smoke. Direct and second- hand smoke shortens your life as well as the lives of your family, friends and others around you. For your health and the health of those around you, please consider quitting! Proper Bending Body Mechanics: Maintain a wide stance with one foot slightly in front of the other. Keep your back straight. Bend utilizing the strength in your hips and knees. Do not bend at the waist. Maintain the lifted object at your waist-level close to your body. Avoid lifting weight that causes immediately pain or pain anywhere in the body afterwards. Smoking/Nicotine If there was ever one thing that you could do to increase your overall health, decrease your risk of cardiovascular problems by about 39% the second you make the choice, it is to STOP SMOKING. Your body's most instant gratification is the second you stop smoking. We have all heard the studies, read the articles but it is true, smoking is extremely bad for your overall health, and moreover it is detrimental to your bone health. Nicotine, IN ANY FORM, kills bone cells, prevents your body from healing fractures, and significantly prolongs healing after surgery. In spine surgery specifically, it increases your risk of not healing your bones to create a fusion and increases your risk of having a revision surgery due to this up to 60%. I know it is hard. I know it feels impossible. But there are ways. Take control of your life. We are here to help you through it. And when you are ready, ask us and we can direct you to help if you desire. Use the START Plan to Quit Smoking (please visit the [employer].org website listed below for more information): S = Set a quit date. Choose a date within the next 2 weeks, so you have enough time to prepare without losing your motivation to quit. If you mainly smoke at work, quit on the weekend, so you have a few days to adjust to the change. T = Tell family, friends, and co-workers that you plan to quit. Let your friends and family in on your plan to quit smoking and tell them you need their support and encouragement to stop. Look for a quit shanna who wants to stop smoking as well. You can help each other get through the rough times. A = Anticipate and plan for the challenges you'll face while quitting. Most people who begin smoking again do so within the first 3 months. You can help yourself make it through by preparing ahead for common challenges, such as nicotine withdrawal and cigarette cravings. R = Remove cigarettes and other tobacco products from your home, car, and work. Throw away all your cigarettes (no emergency pack!), lighters, ashtrays, and matches. Wash your clothes and freshen up anything that smells like smoke. Shampoo your car, clean your drapes and carpet, and steam your furniture. T = Talk to your doctor about getting help to quit. Your doctor can prescribe medication to help with withdrawal and suggest other alternatives. If you can't see a doctor, you can get many products over the counter at your local pharmacy or grocery store, including the nicotine patch, nicotine lozenges, and nicotine gum. Resources for Quitting Smoking: <https://www.[place].gov/documents/[facility]/Quit_Tobacco_R esources_for_patients_313480_7.pdf> Supplementation: Take recommended dosages of Vitamin D and Calcium to help fortify your bones and help them to heal. See your health maintenance packet for dosages and recommended levels. DVT/VTE prophylaxis: You will be given compression stockings from the hospital. Wear these daily for the first two weeks after surgery. You may take them off at night. You may be prescribed a medication to help thin your blood. Take this as directed. If you are not prescribed this medication, early and frequent ambulation has been shown to be the best prophylaxis to deep vein thrombosis and sequelae related to this event. Discharge Disposition: HOME WITH HOME HEALTH SERVICES
--- NOTE | 2023-01-05 13:09 | CDI ---
Documentation Clarification Form Date: From: Ananya Mckeon Phone: [phone] Admit Date: 12/27/2022 07:31:00 AM Patient Name: Nicole Luis Visit Number: [id number] Discharge Date: 01/01/2023 07:34:00 PM ATTENTION: The Clinical Documentation Specialists (CDI) and [facility] Coding Staff appreciate your assistance in clarifying documentation. Please respond to the clarification below the line at the bottom and electronically sign. The CDI & [facility] Coding staff will review the response and follow-up if needed. Please note: Queries are made part of the Legal Health Record. If you have any questions, please contact the author of this message via ITS. Dr. Caleb Cosme Postoperative hypotension is documented in the progress note on 12/28 and patient had spine surgery on 12/27. Additional clarification is requested regarding the relationship, if any, that exists between the diagnosis and the procedure. Patients Admitting Diagnosis: T12-S1 STENOSIS, SEVERE WITH SEVERE SPONDYLOSIS, LUMBAR DEGENERATIVE SCOLIOSIS, NEUROGENIC CLAUDICATION, LOW BACK PAIN, UI, BI RECENT Post-Operative Diagnosis: same Procedure performed: [id number] decompression and fusion History/Risk Factors: "Patient is a 72-year-old white female with past medical history significant for chronic lower back pain, cystitis, hyperlipidemia, hypothyroidism." - Per Progress Note on 12/29 Clinical Indicators: "Postoperative hypotension, possibly related to acute blood loss" "RESPIRATORY: Denies shortness of breath, cough, congestion or hemoptysis." - Per Pulmonology Consult Note on 12/28 O2: 12/27 08:01 - 98% on room air (RA), 17:15 - 98% on Simple mask, 18:15 - 100% on 2L NC 12/28 07:00 - 100% on 2L NC, 10:00 - 100% on RA, 13:00 - 95% on RA 12/29 00:00 - 99% on 2L NC, 06:00 - 98% on RA, 20:00 - 98% on RA 12/30 08:00 - 93% on RA 12/31 00:58 - 91% on RA, 08:00 - 95% on RA, hemoglobin: 12/27 - 14.7, 12/28 - 9.3, 8.0, 12/29 - 8.3, 12/30 - 7.7, 12/31 - 8.7, 01/01 - 9.8 "Estimated Blood Loss (ml): 1,500" - Per Op Report on 12/28 Treatment: "total of 3 units of packed RBC" - Per Progress Note on 12/31 What relationship, if any, exists between the diagnosis of hypotension and the procedure: [ ] hypotension is a complication of surgical procedure [ ] hypotension is an expected outcome of the surgical procedure [ ] hypotension is related to patients acute blood loss anemia & not a complication of the procedure [ ] hypotension has been ruled out [ ] Other please specify ____ [ ] Unable to determine hypotension is related to patients acute blood loss anemia & not a complication of the procedure MTDD
== END 2023-01-01 19:34 | disposition home health service (06) | DRG 454 ==
LOC: EDSTATUS 07:30 → 2ORMAIN 07:31 → 2SICU 17:25 → 4SSUR 12-30 12:50
PROVIDERS: ADMIT Orthopaedic Surgery; ATTEND Orthopaedic Surgery
PROC: 0SG1071 Fusion of 2 or more Lumbar Vertebral Joints with Autologous Tissue Substitute, Posterior Approach, Posterior Column, Open Approach (ICD-10-PCS; 2022-12-27)
PROC: 0SG30AJ Fusion of Lumbosacral Joint with Interbody Fusion Device, Posterior Approach, Anterior Column, Open Approach (ICD-10-PCS; 2022-12-27)
PROC: 0SG3071 Fusion of Lumbosacral Joint with Autologous Tissue Substitute, Posterior Approach, Posterior Column, Open Approach (ICD-10-PCS; 2022-12-27)
PROC: 0QS00ZZ Reposition Lumbar Vertebra, Open Approach (ICD-10-PCS; 2022-12-27)
PROC: 0QS10ZZ Reposition Sacrum, Open Approach (ICD-10-PCS; 2022-12-27)
PROC: 0PB40ZZ Excision of Thoracic Vertebra, Open Approach (ICD-10-PCS; 2022-12-27)
PROC: 0QH304Z Insertion of Internal Fixation Device into Left Pelvic Bone, Open Approach (ICD-10-PCS; 2022-12-27)
PROC: 0QH204Z Insertion of Internal Fixation Device into Right Pelvic Bone, Open Approach (ICD-10-PCS; 2022-12-27)
PROC: 0ST40ZZ Resection of Lumbosacral Disc, Open Approach (ICD-10-PCS; 2022-12-27)
PROC: 8E0WXBZ Computer Assisted Procedure of Trunk Region (ICD-10-PCS; 2022-12-27)
PROC: 30233N1 Transfusion of Nonautologous Red Blood Cells into Peripheral Vein, Percutaneous Approach (ICD-10-PCS; 2022-12-27)
PROC: 30233J1 Transfusion of Nonautologous Serum Albumin into Peripheral Vein, Percutaneous Approach (ICD-10-PCS; 2022-12-27)
PROC: 0SG10AJ Fusion of 2 or more Lumbar Vertebral Joints with Interbody Fusion Device, Posterior Approach, Anterior Column, Open Approach (ICD-10-PCS; principal; 2022-12-27 09:30)
DX: M47.815 Spondylosis without myelopathy or radiculopathy, thoracolumbar region (principal); D62 Acute posthemorrhagic anemia; M48.55XA Collapsed vertebra, not elsewhere classified, thoracolumbar region, initial encounter for fracture; M41.56 Other secondary scoliosis, lumbar region; M48.05 Spinal stenosis, thoracolumbar region; I95.89 Other hypotension; E89.0 Postprocedural hypothyroidism; G47.9 Sleep disorder, unspecified; M48.061 Spinal stenosis, lumbar region without neurogenic claudication; M48.07 Spinal stenosis, lumbosacral region; K21.9 Gastro-esophageal reflux disease without esophagitis; E78.5 Hyperlipidemia, unspecified; G89.29 Other chronic pain; M47.816 Spondylosis without myelopathy or radiculopathy, lumbar region; M47.817 Spondylosis without myelopathy or radiculopathy, lumbosacral region; M48.062 Spinal stenosis, lumbar region with neurogenic claudication; M25.78 Osteophyte, vertebrae; K59.00 Constipation, unspecified; R15.9 Full incontinence of feces; R33.8 Other retention of urine; Z96.643 Presence of artificial hip joint, bilateral; Z87.891 Personal history of nicotine dependence; Z79.890 Hormone replacement therapy; Z79.899 Other long term (current) drug therapy; Z28.310 Unvaccinated for COVID-19
CPT/HCPCS: 36430; 72100; 72128; 72131; 80048; 82803; 85025; 85027; 86850; 86891; 86900; 86901; 86920

== ENCOUNTER → 2023-03-15 | Outpatient (CLI) | payer MEDICARE ==
--- NOTE | 2023-03-15 17:48 | US ---
EXAMINATION TYPE: US venous doppler duplex LE BI DATE OF EXAM: 03/15/2023 2:32 PM COMPARISON: NONE CLINICAL INDICATION: Female, 72 years old with history of R60.0 LOCALIZED EDEMA; Leg swelling SIDE PERFORMED: Bilateral TECHNIQUE: The lower extremity deep venous system is examined utilizing real time linear array sonog alexa with graded compression, doppler sonography and color-flow sonography. 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
== END | disposition home or self-care (01) ==
LOC: RADUSWWP 14:08
PROVIDERS: ATTEND Family Medicine
DX: R60.0 Localized edema (principal)
CPT/HCPCS: 93970

== ENCOUNTER → 2023-05-11 | Outpatient (CLI) | payer MEDICARE ==
--- NOTE | 2023-05-11 12:01 | CT ---
EXAMINATION TYPE: CT abdomen wo con DATE OF EXAM: 05/11/2023 COMPARISON: [address] chest, abdomen and pelvis on 11/12/2020. HISTORY: ventral hernia CT DLP: 456.30 mGycm Automated exposure control for dose reduction was used. TECHNIQUE: Helical acquisition of images was performed from the lung bases through the top of iliac crest to include entire abdomen. CONTRAST: Performed without Oral Contrast and without IV contrast. FINDINGS: LUNG BASES: No significant abnormality is appreciated. LIVER/GB: No significant abnormality is appreciated. PANCREAS: No significant abnormality is seen. SPLEEN: No significant abnormality is seen. ADRENALS: Left adrenal nodules are seen measuring 2.6 cm and 2.5 cm in diameter. KIDNEYS: No significant abnormality is seen. BOWEL: No significant abnormality is seen. LYMPH NODES: No significant abnormality is appreciated. OSSEOUS STRUCTURES: Extensive posterior spinal fusion changes are unchanged. FREE AIR: No free air is visualized. OTHER: There is a large fat-containing supraumbilical ventral hernia which also contains a portion of the transverse colon. The neck measures approximately 3.7 cm. IMPRESSION: 1. VENTRAL HERNIA ABOVE. 2. UNCHANGED LEFT ADRENAL NODULES.
== END | disposition home or self-care (01) ==
LOC: RADCTMAIN 11:18
PROVIDERS: ATTEND Surgery
DX: K43.6 Other and unspecified ventral hernia with obstruction, without gangrene (principal); E27.8 Other specified disorders of adrenal gland
CPT/HCPCS: 74150

== ENCOUNTER → 2023-10-06 | Outpatient (CLI) | payer MEDICARE ==
--- NOTE | 2023-10-11 16:28 | MM ---
Reason for Exam: Screening (asymptomatic). Last mammogram was performed 2 year(s) and 5 month(s) ago. Patient History: Menarche at age 14. First Full-Term at age 24. Hysterectomy at age 36. Postmenopausal. Patient has history of breast feeding. Paternal aunt had colorectal cancer at or over age 50. Risk Values: Areli 5 year model risk: 1.5%. NCI Lifetime model risk: 4.5%. Prior Study Comparison: 07/26/2016 Screening Mammogram, [facility]. 04/26/2019 Screening Mammogram, [facility]. 05/05/2021 Bilateral Screening Mammogram, [facility]. Tissue Density: There are scattered areas of fibroglandular density. Findings: Analyzed By CAD. The pattern is symmetrical. No significant interval change evident. No suspicious groups of microcalcifications, spiculated or lobular masses, architectural distortion or other secondary signs of malignancy are mammographically apparent. Overall Assessment: Benign, BI-RAD 2 Management: Screening Mammogram of both breasts in 1 year. A negative mammogram report should not preclude additional follow up of suspicious palpable abnormalities. Patient should continue monthly self breast exam. A clinical breast exam by your physician is recommended on an annual basis and results should be correlated with mammographic findings. Note on Areli scores and lifetime risk: 1. A Areli score greater than 3% is considered moderate risk. If this is the case, consider specialist referral to assess eligibility for a risk reducing agent. 2. If overall lifetime risk for the development of breast cancer is 20% or higher, the patient may qualify for future screening with alternating mammogram and breast MRI. Electronically signed and approved by: Russell John D.O. Radiologis
== END | disposition home or self-care (01) ==
LOC: RADMAMWWP 07:49
PROVIDERS: ATTEND Internal Medicine
DX: Z12.31 Encounter for screening mammogram for malignant neoplasm of breast (principal); Z78.0 Asymptomatic menopausal state
CPT/HCPCS: 77067

== ENCOUNTER 2024-03-14 11:12 | Day surgery (SDC) | payer MEDICARE ==
[2024-03-14 12:27] VITALS: TEMP 98.5
[2024-03-14] MEDS: LACTATED RINGERS 1,000 ML IV SCH (12:27)
[2024-03-14] MEDS: IV FLUID CONTINUATION 1,000 ML IV ONE (12:27)
[2024-03-14] MEDS ORDERED: PROPOFOL 10 MG/ML 20 ML VIAL IV ONE (12:52)
--- NOTE | 2024-03-14 13:11 | P.PCN ---
Date of Procedure: 03/14/24 Procedure(s) Performed: BRIEF HISTORY: Patient is a 73-year-old pleasant white female scheduled for an elective colonoscopy as a part of screening for colon cancer/positive Cologuard. PROCEDURE PERFORMED: Colonoscopy snare polypectomy. PREOPERATIVE DIAGNOSIS: Screening for colon cancer/positive Cologuard. IV sedation per Anesthesia. PROCEDURE: After informed consent was obtained, the patient, was brought into the endoscopy unit. IV sedation was administered by Anesthesia under continuous monitoring. Digital rectal examination was normal. Initially the Olympus CF-160 flexible video colonoscope was then inserted in the rectum, gradually advanced into the cecum without any difficulty. Careful examination was performed as the scope was gradually being withdrawn. Ileocecal valve and the appendiceal orifice were visualized and appeared normal. Prep was excellent. Mucosa of the cecum, 8 mm bleeding polyp that was removed by cold snare polypectomy. Rest of the ascending colon, transverse colon, descending colon, normal. The sigmoid colon there was a 5 mm polyp removed by cold snare polypectomy. Rest of the sigmoid colon, and rectum appeared normal. Retroflexion was performed in the rectum and no lesions were seen. The patient tolerated the procedure well. IMPRESSION: 8 mm polyp in the cecum status post cold snare polypectomy 5 millimeter sigmoid colon polyp status post snare polypectomy Rest of the colon appeared normal RECOMMENDATIONS: Findings of this examination were discussed with the patient as well as her family. She was advised to follow with the biopsy results. Biopsy reveals adenoma she can have repeat colonoscopy in 5 years.
[2024-03-14 13:18] VITALS: RESP 16
[2024-03-14 13:30] VITALS: BP 135/82; PULSE 78
== END 2024-03-14 13:47 | disposition home or self-care (01) ==
LOC: ORWHC2ENDO 11:12
PROVIDERS: ATTEND Internal Medicine Gastroenterology
DX: D12.0 Benign neoplasm of cecum (principal); D12.5 Benign neoplasm of sigmoid colon; E78.5 Hyperlipidemia, unspecified; E03.9 Hypothyroidism, unspecified; M19.90 Unspecified osteoarthritis, unspecified site; F41.9 Anxiety disorder, unspecified; F32.A Depression, unspecified; F12.90 Cannabis use, unspecified, uncomplicated; Z79.890 Hormone replacement therapy; Z79.899 Other long term (current) drug therapy
CPT/HCPCS: 88305; 45385; J2704

== ENCOUNTER → 2024-05-31 | Outpatient (CLI) | payer MEDICARE ==
--- NOTE | 2024-05-31 09:25 | US ---
EXAMINATION TYPE: US venous doppler duplex LE LT DATE OF EXAM: 05/31/2024 9:05 AM COMPARISON: Bilateral lower extremity venous ultrasound 03/15/2023 CLINICAL INDICATION: Female, 73 years old with history of LLE; M79.662 R22.42; Patient states her lef t leg gets swollen and was red, Pain TECHNIQUE: The lower extremity deep venous system is examined utilizing real time linear array sonog alexa with graded compression, color doppler sonography, and spectral doppler. SIDE PERFORMED: Left FINDINGS: VESSELS IMAGED: Common Femoral Vein Deep Femoral Vein Greater Saphenous Vein * Femoral Vein Popliteal Vein Small Saphenous Vein * Proximal Calf Veins (* superficial vessels) Left Leg: Negative for DVT, Color Doppler imaging shows patency of the vessels. Spectral waveforms a re within normal limits. IMPRESSION: No evidence of deep vein thrombosis of the left lower extremity. [facility], , 05/31/2024 9:23 AM
== END | disposition home or self-care (01) ==
LOC: RADUSWWP 08:41
PROVIDERS: ATTEND Internal Medicine
DX: M79.662 Pain in left lower leg (principal); R22.42 Localized swelling, mass and lump, left lower limb